=== PATIENT | male | born 1960 | race Caucasian/White ===

== ENCOUNTER 2024-01-21 14:49 | Emergency (ER) | payer OTHER, SELFPAY ==
--- NOTE | ~2024-01-21 | CT_ITS ---
EXAMINATION: CT brain wo con DATE: 01/21/2024 17:21 INDICATION: Headache. Hypertension. TECHNIQUE: Computed tomography (CT) of the head was performed without intravenous contrast. The mA wa s adjusted according to patient size. Iterative reconstruction technique was employed. Exam dose: 68 1.00 mGy-cm total exam DLP. COMPARISON: None FINDINGS: Bilateral carotid siphon internal carotid artery calcifications and bilateral vertebral art [place] and basilar artery calcifications. There is nonspecific diminished attenuation the cerebral white matter, likely due to chronic small ve ssel ischemic changes. No intracranial mass lesion or hemorrhage or cerebrovascular accident is evident. No midline shift or mass effect. No subdural or epidural hematoma is detected. The orbital contents are unremarkable. There is minimal mucoperiosteal thickening of the left axilla sinus and slight focal soft tissue thic kening of the right ethmoid air cells. The paranasal sinuses and mastoid air cells otherwise are norm ally developed and aerated. No fracture or bone destruction of the cranial vault. IMPRESSION: Cerebral atherosclerosis and chronic small vessel ischemic changes of the cerebral white matter No acute intracranial finding Reviewed, dictated and finalized at [facility]. Reviewed, dictated and finalized at [facility] [employer]
--- NOTE | 2024-01-21 14:54 | ECG_ITS ---
Test Date: 2024-01-21 15:01:41 Measurements Intervals [place] Rate: 91 P: 38 OK: 143 QRS: -3 QRSD: 109 T: 44 QT: 384 QTc: 474 Interpretive Statements SINUS RHYTHM No previous ECG available for comparison Electronically Signed On 01-21-2024 15:06:10 HUMAN SERVICES PROGRAM SPECIALIST by Charles Carbajal M.D.
[2024-01-21 14:57] VITALS: BP 188/115; PULSE 98; RESP 16; TEMP 36.6; O2SAT 98
[2024-01-21 17:00] VITALS: BP 202/125; PULSE 92; RESP 16; O2SAT 96
--- NOTE | 2024-01-21 18:30 | ED.RECABL ---
HPI - Recheck/Abnormal Lab/Rx General Chief Complaint: Recheck/Abnormal Lab/Rx Stated Complaint: HTN and h/a Time Seen by Provider: 01/21/24 16:40 Source: patient Mode of arrival: ambulatory Limitations: no limitations History of Present Illness HPI narrative: Patient is a 63-year-old male who presents the ED with report of hypertension and headache. Patient reports over the last 1 week he has had a persistent headache. Initially started throughout the right portion of his head, now spread diffusely throughout his head. Pain seems to radiate and involve his eyes, neck. He states he checked his blood pressure today and noted to be elevated into the 180s systolic. Does not remember the last time he checked his pressure. He does have history of hypertension and is on valsartan and amlodipine however he notes he has been out of his amlodipine for the last 1 month. Has not taken anything for the headache. Does have previous history of migraines. Reports photophobia, mild lightheadedness. Denies syncope, vision changes, focal weakness or numbness, fevers. Denies chest pain, SOB. Related Data Allergies Allergy/AdvReac Type Severity Reaction Status Date / Time atenolol AdvReac Swelling Verified 01/21/24 14:52 Review of Systems Review of Systems: All systems reviewed & are unremarkable except as noted in HPI. All systems reviewed & are unremarkable except as noted in HPI and below Exam Narrative: GENERAL: Well appearing, well-nourished, non-toxic, in no acute distress. HEAD: Normocephalic, atraumatic. EYES: PERRL/EOMI, conjunctiva clear. RESPIRATORY: Airway patent, respirations nonlabored. Clear to auscultation bilaterally, no rales, rhonchi, wheezing. CARDIOVASCULAR: Regular rate and rhythm without murmurs, rubs, or gallops. MUSCULOSKELETAL: Moves all extremities. No gross deformities. SKIN: Warm, dry, normal color. NEURO: A&O X3. Speech clear. Cranial nerves II-XII grossly intact. Steady gait. No ataxic movements. No focal deficits. Moves all extremities equally. No meningeal signs. PSYCHIATRIC: Appropriate mood and affect. Normal interaction. Course Vital Signs Vital signs: Vital Signs Temperature 97.9 F 01/21/24 14:57 Pulse Rate 98 01/21/24 14:57 Respiratory Rate 16 01/21/24 14:57 Blood Pressure 188/115 H 01/21/24 14:57 Pulse Oximetry 98 01/21/24 14:57 Oxygen Delivery Room Air 01/21/24 14:57 Temperature 97.9 F 01/21/24 14:57 Pulse Rate 76 01/21/24 20:32 Respiratory Rate 14 01/21/24 20:32 Blood Pressure 188/102 H 01/21/24 20:32 Pulse Oximetry 96 01/21/24 20:32 Oxygen Delivery Room Air 01/21/24 14:57 MDM - Recheck/Abnormal Lab/Rx MDM Narrative Medical decision making narrative: Patient presented to ED with report of 1 week history of headache and hypertension. He is moderately hypertensive here into the 180s systolic. Notes he recently ran out of his home amlodipine. May be partially pain related. Denies any other symptoms to suggest cardiovascular involvement or end-organ damage. Will treat headache and evaluate how this affects blood pressure. Patient's headache was not sudden in onset or maximal in severity. There are no focal neurological deficits on exam. Subarachnoid hemorrhage is felt to be unlikely at this time. CT brain was obtained and negative for acute findings. There is no history of fever and neck is supple on evaluation without meningeal signs. Meningitis is felt to be unlikely. No traumatic history or signs of trauma on evaluation. No vision changes or ocular signs of acute glaucoma. Patient given migraine cocktail in the ED. On reevaluation, patient is feeling tremendously better. Headache nearly resolved. BP did improve into the 170s w/o intervention. Did give 5mg of amlodipine here. Will Rx this for patient. Patient's headache is felt to be benign cephalgia and reasonable for further outpatient management. Advised patient to follow with PCP for further evaluation. Given strict reasons to return should sx's worsen or continue. He feels comfortable going home at this time w/o further w/u. Advised to rest, stay hydrated, continue Tylenol/ibuprofen as needed for pain. Again given strict return precautions. Patient voiced understanding. D/C in stable condition. Medical Records Attestation: I reviewed the patient's medical records. Imaging Data Attestation: I personally reviewed and interpreted this imaging study as follows: Radiologist's impression: ITS Impressions Head CT 01/21/24 17:24 IMPRESSION: Cerebral atherosclerosis and chronic small vessel ischemic changes of the cerebral white matter No acute intracranial finding ECG Data EKG #1: Attestation: I personally reviewed and interpreted this ECG as follows: ECG completion date: 01/21/24 ECG completion time: 15:01 EKG Interpretation: normal rate (91), sinus rhythm and no ST changes Discharge Plan Discharge Clinical Impression: Encounter for medication refill Headache Qualifiers: Headache type: unspecified Headache chronicity pattern: acute headache Intractability: not intractable Qualified Code(s): R51.9 - Headache, unspecified Hypertension Qualifiers: Hypertension type: unspecified Qualified Code(s): I10 - Essential (primary) hypertension Patient Disposition: Home, Self-Care Condition: Stable Instructions: Antibiotic Form, Migraine Headache (ED), Acute Headache (ED), Chronic Hypertension (ED), Hypertension (ED) Additional Instructions: Continue Tylenol and ibuprofen as needed for pain. Get plenty of rest. Stay well hydrated. Recommend low light/ low stimulus environment, limiting screen time. Return to the ED if you experience worsening or severe pain, severe dizziness, vision changes, unable to keep down food or drink, numbness or weakness of arm or leg, chest pain, difficulty breathing, persistent fevers, or any other symptoms of concern. Continue home medications for blood pressure. I have prescribed a refill of your amlodipine 5 mg. Continue to monitor blood pressure and keep recording of this. Follow-up closely with primary care doctor for further evaluation. Prescriptions: New amlodipine 5 mg tablet 5 mg PO DAILY Qty: 90 0RF Follow-up/Referrals: Chuy Adkins MD [Physician] - (PRIMARY CARE) PHYSICIAN,[employer] MACHINE SET UP MECHANIC [Primary Care Provider] - Stand Alone Forms: Work/School Release IP Time of Disposition: 20:21
[2024-01-21] MEDS: SODIUM CHLORIDE 0.9% IV 1,000 ML 999 ML IV CONT (19:07)
[2024-01-21] MEDS: ACETAMINOPHEN 500 MG TABLET 1000 MG PO (19:07)
[2024-01-21] MEDS: diphenhydrAMINE HCl INJ 50 MG/ML VIAL 25 MG IV PUSH (19:07)
[2024-01-21] MEDS: METOCLOPRAMIDE HCL INJ 10 MG/2 ML VIAL IV PUSH (19:08)
[2024-01-21] MEDS: KETOROLAC 30 MG/ML VIAL (*BKC) IV PUSH (19:10)
[2024-01-21 19:11] VITALS: BP 184/101; PULSE 74; RESP 14; O2SAT 95
[2024-01-21] MEDS: amLODIPine BESYLATE 5 MG TABLET PO (19:54)
[2024-01-21 20:32] VITALS: BP 188/102; PULSE 76; RESP 14; O2SAT 96
== END 2024-01-21 20:42 | disposition home or self-care (01) ==
PROVIDERS: Emergency Provider Physician Assistant
DX: R51.9 Headache, unspecified (principal); I10 Essential (primary) hypertension; Z76.0 Encounter for issue of repeat prescription; R90.82 White matter disease, unspecified
CPT/HCPCS: 70450; 93005; 96361; 96374; 96375; 99284; A9270; J1200; J1885; J2765; J7030

== ENCOUNTER 2024-04-12 15:24 | Emergency (ER) | payer OTHER, SELFPAY ==
[2024-04-12 15:34] VITALS: BP 149/81; PULSE 98; RESP 18; TEMP 36.8; O2SAT 99
--- NOTE | 2024-04-12 15:41 | ED.DIZZY ---
HPI - Dizziness General Chief Complaint: Dizziness <Gisselle De Leon PA-C - Last Filed: 04/13/24 14:22> Stated Complaint: light headed, sob <Gisselle De Leon PA-C - Last Filed: 04/13/24 14:22> Time Seen by Provider: 04/12/24 19:32 <Gisselle De Leon PA-C - Last Filed: 04/13/24 14:22> Focused HPI: This is a 64 year old male that presents to the ER for dizziness, lightheadedness. Reports exertional shortness of breath. Reports his heart rate was elevated at work. He was told to leave work and go get checked out. He went to [facility] urgent care initially. They sent him to the ER. Reports acid reflux GENERAL: Well-appearing, well-nourished, and in no acute distress. HEAD: Normocephalic, atraumatic. CHEST: Clear to auscultation. ?No respiratory distress. HEART: Regular rate and rhythm.? NEURO: ?Alert and oriented x3. Patient screened in triage and initial orders placed.? ?Additional care and disposition to be based upon?diagnostic testing and treatment. <Gisselle De Leon PA-C - Last Filed: 04/13/24 14:22> Focused HPI: This is a 64 year old male that presents to the ER for dizziness, lightheadedness. Reports exertional shortness of breath. Reports his heart rate was elevated at work. He was told to leave work and go get checked out. He went to [facility] urgent care initially. They sent him to the ER. Reports acid reflux. GENERAL: Well-appearing, well-nourished, and in no acute distress. HEAD: Normocephalic, atraumatic. CHEST: Clear to auscultation. ?No respiratory distress. HEART: Regular rate and rhythm.? NEURO: ?Alert and oriented x3. Patient screened in triage and initial orders placed.? ?Additional care and disposition to be based upon?diagnostic testing and treatment. <Cookie Zarco APRN - Last Filed: 04/12/24 22:50> History of Present Illness HPI Narrative: I agree with the assessment and documentation of Gisselle De Leon PA-C. <Cookie Zarco APRN - Last Filed: 04/12/24 22:50> Related Data Allergies/Adverse Reactions: Allergies Allergy/AdvReac Type Severity Reaction Status Date / Time atenolol AdvReac Swelling Verified 01/21/24 14:52 <Gisselle De Leon PA-C - Last Filed: 04/13/24 14:22> Review of Systems Review of Systems: All systems reviewed & are unremarkable except as noted in HPI and below <Cookie SherryAsher Zarco, DEBBIE - Last Filed: 04/12/24 22:50> Exam Narrative: GENERAL: Well appearing, well-nourished, non-toxic, in no acute distress. HEAD: Normocephalic, atraumatic. NECK: Supple. No adenopathy, no masses. RESPIRATORY: Airway patent, respirations nonlabored. Clear to auscultation bilaterally, no rales, rhonchi, wheezing. CARDIOVASCULAR: Regular rate and rhythm without murmurs, rubs, or gallops. Peripheral pulses 2+ and equal bilaterally. ABDOMINAL: Soft, nontender, mildly distended, no hepatosplenomegaly. Normoactive BS. MUSCULOSKELETAL: Moves all extremities. Strength/ROM intact without gross deformities. SKIN: Warm, dry, normal color. No rashes. NEURO: A&O X3. Speech clear. Cranial nerves II-XII grossly intact. Steady gait. No ataxic movements. PSYCHIATRIC: Appropriate mood and affect. Normal interaction. <Cookie Zarco, DEBBIE - Last Filed: 04/12/24 22:50> Course Vital Signs Vital signs: Vital Signs Temperature 98.3 F 04/12/24 15:34 Pulse Rate 98 04/12/24 15:34 Respiratory Rate 18 04/12/24 15:34 Blood Pressure 149/81 H 04/12/24 15:34 Pulse Oximetry 99 04/12/24 15:34 Oxygen Delivery Room Air 04/12/24 15:34 Temperature 99 F 04/12/24 18:51 Pulse Rate 71 04/12/24 23:03 Respiratory Rate 15 04/12/24 23:03 Blood Pressure 140/84 04/12/24 23:03 Pulse Oximetry 100 04/12/24 23:03 Oxygen Delivery Room Air 04/12/24 15:34 <Gisselle De Leon PA-C - Last Filed: 04/13/24 14:22> Vital Signs Temperature 98.3 F 04/12/24 15:34 Pulse Rate 98 04/12/24 15:34 Respiratory Rate 18 04/12/24 15:34 Blood Pressure 149/81 H 04/12/24 15:34 Pulse Oximetry 99 04/12/24 15:34 Oxygen Delivery Room Air 04/12/24 15:34 Temperature 99 F 04/12/24 18:51 Pulse Rate 71 04/12/24 23:03 Respiratory Rate 15 04/12/24 23:03 Blood Pressure 140/84 04/12/24 23:03 Pulse Oximetry 100 04/12/24 23:03 Oxygen Delivery Room Air 04/12/24 15:34 <Cookie Zarco APRN - Last Filed: 04/12/24 22:50> MDM - Dizziness MDM Narrative Medical decision making narrative: This is a 64 year old male that presents to the ER for dizziness, lightheadedness. Reports exertional shortness of breath. Reports his heart rate was elevated at work. He was told to leave work and go get checked out. He went to [facility] urgent care initially. They sent him to the ER. Reports acid reflux. Labs Ordered: CBC, CMP, lipase, troponin, EKG, INR, magnesium Imaging Ordered: chest x-ray Medications Ordered: Aspirin PO, Potassium Chloride 40meq PO x 2 Results: Pt's chest x-ray indicates no acute cardiopulmonary pathology. Diagnosis: Hypokalemia (chronic), adverse side effect of medication Risks: HEART score: low risk HEART Pathway for Early Discharge [email or web address]24 All calculations should be rechecked by clinician prior to use RESULT SUMMARY: 3 points HEART Pathway Score Low risk 0.9-1.7% 30-day MACE Repeat troponin at 3 hours and if negative, discharge home with outpatient follow-up. INPUTS: History ?> 0 = Slightly suspicious EKG ?> 1 = Non-specific repolarization disturbance Age ?> 1 = 45-64 Risk factors ?> 1 = 1-2 risk factors Initial troponin ?> 0 = <=Normal limit Consults: Patient Education/Shared MDM: Results shared with patient. He reports he has chronically low potassium levels and has recently been advised by his PCP to increase his oral Potassium dosage, but pt decreased the dosage back to normal after a couple of days. Pt also reports he started taking Flomax three days ago, which he thinks is what's causing his symptoms. He was advised to stop taking his Flomax until he gets in contact with his PCP. Patient strongly advised to maintain hydration status upon discharge and follow-up with his PCP as soon as possible. He will be discharged home with a new prescription for a stronger dose of Potassium. Strict return precautions provided. Patient verbalized understanding is in agreement with plan. Vital signs stable at time of discharge. All questions answered. <Cookie Zarco APRN - Last Filed: 04/12/24 22:50> Differential Diagnosis Differential diagnosis: Likely adverse reaction to drug, benign paroxysmal positional vertigo and orthostatic hypotension <Cookie Zarco APRN - Last Filed: 04/12/24 22:50> Lab Data Attestation: I reviewed the patient's lab results. <Cookie Zarco APRN - Last Filed: 04/12/24 22:50> Result diagrams: 04/12/24 17:10 04/12/24 18:01 <Gisselle De Leon PA-C - Last Filed: 04/13/24 14:22> Labs: Lab Results 04/12/24 04/12/24 04/12/24 Range/Units 17:10 18:01 21:56 WBC 8.4 (4.5-10.0) K/mm3 RBC 3.80 L (4.6-6.20) M/mm3 Hgb 11.9 L (14.0-18.0) g/dL Hct 34.1 L (42.0-52.0) % MCV 89.7 (80-100) fl MCH 31.3 (26-34) pg MCHC 34.9 (32-36) g/dl RDW 15.0 H (11.5-14.5) % Plt Count 388 H (150-375) k/mm3 MPV 11.0 H (7.4-10.4) fl Immature Gran % (Auto) 0.2 (0-0.5) % Neut % (Auto) 51.6 (45.5-73.1) % Lymph % (Auto) 29.5 (18.3-44.2) % [place] % (Auto) 15.1 H (2.6-8.5) % Eos % (Auto) 2.6 (0-4.4) % Baso % (Auto) 1.0 (0.2-1.2) % Lymph # (Auto) 2.48 (0.9-3.2) K/mm3 [place] # (Auto) 1.3 H (0.1-0.6) K/mm3 Eos # (Auto) 0.2 (0-0.3) K/mm3 Baso # (Auto) 0.1 (0.0-0.1) K/mm3 Abs Immat Gran (auto) 0.02 (0.00-0.031) K/mm3 Absolute Neuts (auto) 4.3 (1.3-6.7) K/mm3 Absolute Nucleated RBC 0.000 (0.0-0.012) K/mm3 Nucleated RBC % 0.0 (0.0-0.2) % PT 13.2 (11.1-14.7) Seconds INR 1.0 APTT 26.8 (22.3-36.8) Seconds Sodium 143 (137-145) mmol/L Potassium 2.8 L* (3.4-5.0) mmol/L Chloride 102 (98-107) mmol/L Carbon Dioxide 30 (22-30) mmol/L Anion Gap 11 (4-12) mmol/L BUN 15 (9-20) mg/dL Creatinine 1.16 (0.7-1.3) mg/dL Estim Creat Clear Calc 62 ml/min Estimated GFR > 60 (59 - ) Glucose 106 (65-110) mg/dL Calcium 9.5 (8.4-10.2) mg/dL Magnesium 1.8 (1.6-2.3) mg/dL Total Bilirubin 0.4 (0.2-1.3) mg/dL AST 50 (17-59) U/L ALT 70 H (6-50) U/L Alkaline Phosphatase 63 (38-126) U/L Troponin I < 0.012 < 0.012 (0.000-0.034) ng/mL Total Protein 8.0 (6.3-8.2) g/dL Albumin 4.2 (3.5-5.1) g/dL Lipase 183 (23-300) U/L 02/28/25 Range/Units 21:56 WBC (4.5-10.0) K/mm3 RBC (4.6-6.20) M/mm3 Hgb (14.0-18.0) g/dL Hct (42.0-52.0) % MCV (80-100) fl MCH (26-34) pg MCHC (32-36) g/dl RDW (11.5-14.5) % Plt Count (150-375) k/mm3 MPV (7.4-10.4) fl Immature Gran % (Auto) (0-0.5) % Neut % (Auto) (45.5-73.1) % Lymph % (Auto) (18.3-44.2) % [place] % (Auto) (2.6-8.5) % Eos % (Auto) (0-4.4) % Baso % (Auto) (0.2-1.2) % Lymph # (Auto) (0.9-3.2) K/mm3 [place] # (Auto) (0.1-0.6) K/mm3 Eos # (Auto) (0-0.3) K/mm3 Baso # (Auto) (0.0-0.1) K/mm3 Abs Immat Gran (auto) (0.00-0.031) K/mm3 Absolute Neuts (auto) (1.3-6.7) K/mm3 Absolute Nucleated RBC (0.0-0.012) K/mm3 Nucleated RBC % (0.0-0.2) % PT (11.1-14.7) Seconds INR APTT (22.3-36.8) Seconds Sodium (137-145) mmol/L Potassium (3.4-5.0) mmol/L Chloride (98-107) mmol/L Carbon Dioxide (22-30) mmol/L Anion Gap (4-12) mmol/L BUN (9-20) mg/dL Creatinine (0.7-1.3) mg/dL Estim Creat Clear Calc ml/min Estimated GFR (59 - ) Glucose (65-110) mg/dL Calcium (8.4-10.2) mg/dL Magnesium (1.6-2.3) mg/dL Total Bilirubin (0.2-1.3) mg/dL AST (17-59) U/L ALT (6-50) U/L Alkaline Phosphatase (38-126) U/L Troponin I < 0.012 (0.000-0.034) ng/mL Total Protein (6.3-8.2) g/dL Albumin (3.5-5.1) g/dL Lipase (23-300) U/L <Gisselle De Leon PA-C - Last Filed: 04/13/24 14:22> Lab Results 04/12/24 04/12/24 04/12/24 Range/Units 17:10 18:01 21:56 WBC 8.4 (4.5-10.0) K/mm3 RBC 3.80 L (4.6-6.20) M/mm3 Hgb 11.9 L (14.0-18.0) g/dL Hct 34.1 L (42.0-52.0) % MCV 89.7 (80-100) fl MCH 31.3 (26-34) pg MCHC 34.9 (32-36) g/dl RDW 15.0 H (11.5-14.5) % Plt Count 388 H (150-375) k/mm3 MPV 11.0 H (7.4-10.4) fl Immature Gran % (Auto) 0.2 (0-0.5) % Neut % (Auto) 51.6 (45.5-73.1) % Lymph % (Auto) 29.5 (18.3-44.2) % [place] % (Auto) 15.1 H (2.6-8.5) % Eos % (Auto) 2.6 (0-4.4) % Baso % (Auto) 1.0 (0.2-1.2) % Lymph # (Auto) 2.48 (0.9-3.2) K/mm3 [place] # (Auto) 1.3 H (0.1-0.6) K/mm3 Eos # (Auto) 0.2 (0-0.3) K/mm3 Baso # (Auto) 0.1 (0.0-0.1) K/mm3 Abs Immat Gran (auto) 0.02 (0.00-0.031) K/mm3 Absolute Neuts (auto) 4.3 (1.3-6.7) K/mm3 Absolute Nucleated RBC 0.000 (0.0-0.012) K/mm3 Nucleated RBC % 0.0 (0.0-0.2) % PT 13.2 (11.1-14.7) Seconds INR 1.0 APTT 26.8 (22.3-36.8) Seconds Sodium 143 (137-145) mmol/L Potassium 2.8 L* (3.4-5.0) mmol/L Chloride 102 (98-107) mmol/L Carbon Dioxide 30 (22-30) mmol/L Anion Gap 11 (4-12) mmol/L BUN 15 (9-20) mg/dL Creatinine 1.16 (0.7-1.3) mg/dL Estim Creat Clear Calc 62 ml/min Estimated GFR > 60 (59 - ) Glucose 106 (65-110) mg/dL Calcium 9.5 (8.4-10.2) mg/dL Magnesium 1.8 (1.6-2.3) mg/dL Total Bilirubin 0.4 (0.2-1.3) mg/dL AST 50 (17-59) U/L ALT 70 H (6-50) U/L Alkaline Phosphatase 63 (38-126) U/L Troponin I < 0.012 < 0.012 (0.000-0.034) ng/mL Total Protein 8.0 (6.3-8.2) g/dL Albumin 4.2 (3.5-5.1) g/dL Lipase 183 (23-300) U/L 04/12/24 Range/Units 21:56 WBC (4.5-10.0) K/mm3 RBC (4.6-6.20) M/mm3 Hgb (14.0-18.0) g/dL Hct (42.0-52.0) % MCV (80-100) fl MCH (26-34) pg MCHC (32-36) g/dl RDW (11.5-14.5) % Plt Count (150-375) k/mm3 MPV (7.4-10.4) fl Immature Gran % (Auto) (0-0.5) % Neut % (Auto) (45.5-73.1) % Lymph % (Auto) (18.3-44.2) % [place] % (Auto) (2.6-8.5) % Eos % (Auto) (0-4.4) % Baso % (Auto) (0.2-1.2) % Lymph # (Auto) (0.9-3.2) K/mm3 [place] # (Auto) (0.1-0.6) K/mm3 Eos # (Auto) (0-0.3) K/mm3 Baso # (Auto) (0.0-0.1) K/mm3 Abs Immat Gran (auto) (0.00-0.031) K/mm3 Absolute Neuts (auto) (1.3-6.7) K/mm3 Absolute Nucleated RBC (0.0-0.012) K/mm3 Nucleated RBC % (0.0-0.2) % PT (11.1-14.7) Seconds INR APTT (22.3-36.8) Seconds Sodium (137-145) mmol/L Potassium (3.4-5.0) mmol/L Chloride (98-107) mmol/L Carbon Dioxide (22-30) mmol/L Anion Gap (4-12) mmol/L BUN (9-20) mg/dL Creatinine (0.7-1.3) mg/dL Estim Creat Clear Calc ml/min Estimated GFR (59 - ) Glucose (65-110) mg/dL Calcium (8.4-10.2) mg/dL Magnesium (1.6-2.3) mg/dL Total Bilirubin (0.2-1.3) mg/dL AST (17-59) U/L ALT (6-50) U/L Alkaline Phosphatase (38-126) U/L Troponin I < 0.012 (0.000-0.034) ng/mL Total Protein (6.3-8.2) g/dL Albumin (3.5-5.1) g/dL Lipase (23-300) U/L <Cookie Zarco APRN - Last Filed: 04/12/24 22:50> Imaging Data Attestation: I personally reviewed and interpreted this imaging study as follows: <Cookie Zarco APRN - Last Filed: 04/12/24 22:50> Radiologist's impression: Impressions Chest X-Ray 04/12/24 16:51 IMPRESSION: no acute cardiopulmonary pathology. <Cookie PowellAsher Zarco APRN - Last Filed: 04/12/24 22:50> Critical Care Time Critical Care Time Critical Care Time: No <Gisselle De Leon PA-C - Last Filed: 04/13/24 14:22> Discharge Plan Discharge Clinical Impression: Hypokalemia, Dizziness Adverse reaction to drug Qualifiers: Encounter type: initial encounter Qualified Code(s): T50.905A - Adverse effect of unspecified drugs, medicaments and biological substances, initial encounter <Gisselle De Leon PA-C - Last Filed: 04/13/24 14:22> Patient Disposition: Home, Self-Care <Gisselle De Leon PA-C - Last Filed: 04/13/24 14:22> Condition: Stable <KIN Faust Last Filed: 04/13/24 14:22> Instructions: Antibiotic Form, Hypokalemia (ED), Dizziness (ED) <Gisselle De Leon PA-C - Last Filed: 04/13/24 14:22> Additional Instructions: Please return to the ER with an worsening symptoms. Follow-up with primary care provider as soon as possible. Your potassium dose will be increased. Please take all medications as prescribed. <Gisselle De Leon PA-C - Last Filed: 04/13/24 14:22> Patient Language: German <Gisselle De Leon PA-C - Last Filed: 04/13/24 14:22> Prescriptions: New potassium gluconate 600 mg (99 mg) tablet 600 mg PO DAILY Qty: 10 0RF No Action amlodipine 5 mg tablet 5 mg PO DAILY Qty: 90 0RF <Gisselle De Leon PA-C - Last Filed: 04/13/24 14:22> Follow-up/Referrals: [facility] [Non-Staff] - <Gisselle De Leon PA-C - Last Filed: 04/13/24 14:22> Stand Alone Forms: Work/School Release IP <Gisselle De Leon PA-C - Last Filed: 04/13/24 14:22> Time of Disposition: 22:51 <Gisselle De Leon PA-C - Last Filed: 04/13/24 14:22> 22:51 <Cookie Zarco APRN - Last Filed: 04/12/24 22:50>
[2024-04-12] MEDS: ASPIRIN 81 MG CHEWABLE TABLET 324 MG PO (16:55)
[2024-04-12 17:18] LABS: Basophils Absolute Auto 0.1 K/mm3 (0.0-0.1); Eosinophils Absolute Auto 0.2 K/mm3 (0-0.3); Eosinophils Percent Auto 2.6 % (0-4.4); Hematocrit 34.1 % (42.0-52.0); Hemoglobin 11.9 g/dL (14.0-18.0); Immature Granulocyte Absolute 0.02 K/mm3 (0.00-0.031); Immature Granulocyte Percent A 0.2 % (0-0.5); Lymphocytes Absolute Auto 2.48 K/mm3 (0.9-3.2); Lymphocytes Percent Auto 29.5 % (18.3-44.2); Mean Corpuscular HGB Conc 34.9 g/dl (32-36); Mean Corpuscular Hemoglobin 31.3 pg (26-34); Mean Corpuscular Volume 89.7 fl (80-100); Monocytes Absolute Auto 1.3 K/mm3 (0.1-0.6); Monocytes Percent Auto 15.1 % (2.6-8.5); Neutrophils Absolute Auto 4.3 K/mm3 (1.3-6.7); Neutrophils Percent Auto 51.6 % (45.5-73.1); Platelet Count Result 388 k/mm3 (150-375); White Blood Count 8.4 K/mm3 (4.5-10.0)
[2024-04-12 17:38] LABS: Prothrombin Time 13.2 Seconds (11.1-14.7)
[2024-04-12 17:39] LABS: Partial Thromboplastin Time 26.8 Seconds (22.3-36.8)
[2024-04-12 18:30] LABS: Alanine Aminotransferase 70 U/L (6-50); Albumin Level 4.2 g/dL (3.5-5.1); Alkaline Phosphatase 63 U/L (38-126); Anion Gap 11 mmol/L (4-12); Aspartate Amino Transferase 50 U/L (17-59); Bilirubin,Total 0.4 mg/dL (0.2-1.3); Blood Urea Nitrogen 15 mg/dL (9-20); Calcium 9.5 mg/dL (8.4-10.2); Carbon Dioxide 30 mmol/L (22-30); Chloride 102 mmol/L (98-107); Estimated CRCL calculation 62 ml/min; Estimated Glomerular Filt Rate > 60; Glucose 106 mg/dL (65-110); Lipase 183 U/L (23-300); Potassium 2.8 mmol/L (3.4-5.0); Sodium 143 mmol/L (137-145)
[2024-04-12 18:38] LABS: Troponin I < 0.012 ng/mL (0.000-0.034)
[2024-04-12 18:51] VITALS: BP 155/87; PULSE 87; RESP 18; TEMP 37.2; O2SAT 95
[2024-04-12] MEDS: POTASSIUM CHLORIDE 20 MEQ ER TABLET 40 MEQ PO (19:48)
[2024-04-12 21:30] VITALS: PULSE 70; RESP 16; O2SAT 96
[2024-04-12 21:32] VITALS: PULSE 62
[2024-04-12 22:19] LABS: Magnesium 1.8 mg/dL (1.6-2.3)
[2024-04-12 22:24] LABS: Troponin I < 0.012 ng/mL (0.000-0.034)
[2024-04-12 22:37] LABS: Troponin I < 0.012 ng/mL (0.000-0.034)
[2024-04-12 23:03] VITALS: BP 140/84; PULSE 71; RESP 15; O2SAT 100
== END 2024-04-12 23:04 | disposition home or self-care (01) ==
PROVIDERS: Physician Assistant; Emergency Provider Registered Nurse
DX: R42 Dizziness and giddiness (principal); E87.6 Hypokalemia; T44.6X5A Adverse effect of alpha-adrenoreceptor antagonists, initial encounter; Z79.899 Other long term (current) drug therapy; I44.7 Left bundle-branch block, unspecified; R94.31 Abnormal electrocardiogram [ECG] [EKG]
CPT/HCPCS: 36415; 71046; 80053; 83690; 83735; 84484; 85025; 85610; 85730; 93005; 99284; A9270

== ENCOUNTER 2024-09-13 15:33 | Emergency (ER) | payer OTHER, SELFPAY ==
--- NOTE | ~2024-09-13 | US_ITS ---
EXAMINATION: US venous doppler LE RT DATE: 09/13/2024 19:13 INDICATION: cellulitis, injection to thigh, swelling in leg . TECHNIQUE: Grayscale images without and with compression and Doppler images of the right lower extrem ity veins were obtained. COMPARISON: None FINDINGS: The right common femoral vein, profunda (deep) femoral vein, femoral vein, popliteal vein, peroneal v ein, posterior tibial veins, and greater saphenous vein are patent. The area of clinical concern was sonographically interrogated revealing no solid or cystic mass. IMPRESSION: Patent right lower extremity veins. No evidence of deep venous thrombosis. Reviewed, dictated and finalized at location K.
--- OUTSIDE RECORDS SUMMARY | 2024-09-13 15:35 | XMS_ITS | Clinical Summary ---
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 Role Phone Unavailable Primary Care Provider Unavailabl e Social History Tobacco Use Types Packs/Day Years Used Date Smoking Tobacco: Never Assessed Sex and Gender Information Value Date Recorded Sex Assigned at Not on file Legal Sex Male 8:11 PM CDT Gender Identity Not on file Sexual Orientation Not on file Plan of Treatment Health Maintenance Due Date Last Done Comments Colorectal Cancer Screening Colonoscopy (10 Years) 1961 Annual Physical 1964 Hepatitis C 1979 DTaP, Tdap and Td Vaccines ( 1 - Tdap) 1980 Pneumococcal Vaccine: 50+ Ye ars (1 of 1 - PCV) 2011 Zoster Vaccines (1 of 2) 2011 COVID-19 Vaccine ( - 2023-2 5 season) 2023 RSV Immunization or 60+ Years (1 - 1-dose 75+ series) 2036 Meningococcal B Vaccine Aged Out No l onger eligible based on patient's age to complete this topic Meningococcal Vaccine Aged Out No ed giulia eligible based on patient's age to complete this topic RSV Immunizations Under 20 Months Aged Out No longer eligible based on patient's age to complete this topic Insurance SupportLocal OPEN ACCESS [facility]
--- OUTSIDE RECORDS SUMMARY | 2024-09-13 15:35 | XMS_ITS | Referral Summary ---
Author Organization [facility] [place] [address] Address [address] [place] [id number] Care Team Providers Care Press Operator Printing Name Role Phone Debra Pastrana DO Primary Care Provider [phone]- [phone] Anna Lopez MD Unavailable Encounters Date Type Department Care Team Description 09/12/2024 6:45 PM CDT Office Visit [facility] Care at [address] [address] Cyndee Gaines NP Acute cough (Primary Dx); Cellulitis of right thigh; Elevated blood pressure reading 09/09/2024 Telephone [facility] Family Medicine at [facility] [address] [place] [address] 260 [place] [address] Debra Pastrana DO Recommendation Request 09/03/2024 Telephone [facility] Sleep Lab [address] [place], [place] [phone] Pop Wilburn MD Split sleep study results / cpap order 09/01/2024 8:00 PM CDT - 09/01/2024 11:59 PM CDT Hospital Encounter [facility] Sleep Lab [address] [place], [place] [id number] MELLISSA (obstructive sleep apnea) Discharge Disposition: Discharge to home or self care 08/26/2024 Orders Only [facility] Pulmonology [address] [facility] [address] [place] [address] Pop Wilburn MD MELLISSA (obstructive sleep apnea) (Primary Dx) 08/26/2024 Telephone [facility] Sleep Lab [address] [place] [address] Emelina Lopez, [facility] Request for Split night sleep study 08/20/2024 Orders Only [facility] Gastroenterology at [address] [place] [address] Mariola Rajan NP Elevated LFTs (Primary Dx); Gallbladder polyp 08/19/2024 1:00 PM CDT Office Visit [facility] Pulmonology [address] [facility] [address] [place] [address] Pop Wilburn MD MELLISSA (obstructive sleep apnea) (Primary Dx); Daytime sleepiness; BMI 30.0-30.9,adult; Nonsmoker 08/12/2024 Telephone [facility] Family Medicine at [place] [address] [facility] [address] [place] [address] Debra Pastrana DO Medical Question/Miscellaneo 08/06/2024 8:00 AM CDT Office Visit [facility] Family Medicine at [place] [address] [facility] [address] [place] [phone] Debra Pastrana DO Cervical radicular pain (Primary Dx); DDD (degenerative disc disease), cervical 08/06/2024 9:08 AM CDT - 08/06/2024 11:59 PM CDT Hospital Encounter [facility] US [address] [place] [address] Elevated LFTs Discharge Disposition: Discharge to home or self care 08/02/2024 Results Follow-Up [facility] Gastroenterology at [address] [place] [phone] Mariola Rajan NP Ceruloplasmin, Hepatic function panel, JUAN DANIEL ab ql w/rflx to JUAN DANIEL qn, Additional followed-up results: 7 07/15/2024 4:45 PM CDT Office Visit [facility] Care at [address] [address] Escobar Patterson NP Acute strain of neck muscle, initial encounter (Primary Dx); Elevated blood pressure reading in office with diagnosis of hypertension 07/15/2024 10:00 AM CDT Lab [facility] Office Bldg [address] [place] [address] Elevated LFTs 07/15/2024 9:00 AM CDT Office Visit [facility] Gastroenterology at [place] [id number] [facility] [address] [place] [address] Mariola Rajan NP Elevated LFTs (Primary Dx); Abdominal bloating 06/24/2024 Results Follow-Up [facility] Family Medicine at [facility] [address] [place] [phone] Debra Pastrana DO Total testosterone, Hemoglobin A1c, Comprehensive metabolic panel, eGFR 06/24/2024 3:45 PM CDT Lab [facility] Office [facility] 3 OP Lab [address] [place] [address] Fatigue, unspecified type; Annual physical exam; Encounter for screening examination for impaired glucose regulation and diabetes mellitus; Elevated LFTs; Encounter for screening for other digestive system disorders 06/24/2024 3:00 PM CDT Office Visit [facility] Family Medicine at [facility] [address] [place] [phone] Debra Pastrana DO Annual physical exam (Primary Dx); Primary hypertension; Mild episode of recurrent major depressive disorder; Generalized anxiety disorder; Elevated LFTs; Fatigue, unspecified type; Daytime sleepiness; Encounter for screening for other digestive system disorders; Encounter for screening examination for impaired glucose regulation and diabetes mellitus from Last 3 Months Allergies Active Allergy Reactions Criticality Noted Date Comments Atenolol Swelling,Angioedema High 08/02/2018 Buspirone Other (See comments) Low 02/29/2024 reports that it gives him a buzzy feeling like he's been drinking Latex Anaphylaxis High 03/23/2022 Medications ascorbic acid (VITAMIN C) 1,000 mg tablet 1 tablet (1,000 mg total) 3 Active aspirin 81 mg enteric coated tabletIndication s:Primary hypertension Take 1 tablet (81 mg total) by mouth daily 90 tablet 3 5 02/28/19 26 Active amLODIPine (NORVASC) 5 mg tabletIndication s:Primary hypertension Take 1 tablet (5 mg total) by mouth nightly 90 tablet 1 5 04/23/19 26 Active tamsulosin (FLOMAX) 0.4 mg extended release capsule 1 capsule (0.4 mg total) daily Active MAGNESIUM ORAL Take by mouth A ctive escitalopram (LEXAPRO) 5 mg tabletIndication s:Mild episode of recurrent major depressive disorder,General ized anxiety disorder Take 1 tablet (5 mg total) by mouth nightly 90 tablet 3 5 06/25/19 26 Active valsartan (DIOVAN) 320 mg tabletIndication s:Primary hypertension Take 1 tablet (320 mg total) by mouth daily 90 tablet 3 5 06/25/19 26 Active potassium chloride ER (KLOR-CON) 10 mEq CR tabletIndication s:Hypokalemia Take 1 tablet/capsule (10 mEq total) by mouth 2 (two) times a day 60 tablet 5 5 06/25/19 26 Active tadalafiL (CIALIS) 5 mg tablet 5 Active testosterone cypionate (DEPO-TESTOTERON E) 200 mg/mL injection Inject 0.5 mL (100 mg total) into the muscle as instructed once a week 5 Active ibuprofen (ADVIL,MOTRIN) 800 mg tabletIndication s:Cervical radicular pain,DDD (degenerative disc disease), cervical Take 1 tablet (800 mg total) by mouth every 8 (eight) hours as needed for pain (pain) 90 tablet 5 5 08/07/19 26 Active methylPREDNISolo ne (MEDROL DOSEPACK) 4 mg DosepackIndicati ons:Chronic bilateral low back pain without sciatica Take as directed on package. 21 tablet 5 Active Additional Information Patient not taking.Reported on 09/12/2024 cyclobenzaprine (FLEXERIL) 10 mg tabletIndication s:Chronic bilateral low back pain without sciatica Take 1 tablet (10 mg total) by mouth nightly as needed for muscle spasms 30 tablet 2 5 08/14/19 26 Active Additional Information Patient not taking.Reported on 09/12/2024 benzonatate (TESSALON) 200 mg capsuleIndicatio ns:Acute cough Take 1 capsule (200 mg total) by mouth 3 (three) times a day as needed for cough 30 capsule 5 Active doxycycline (VIBRAMYCIN) 100 mg capsuleIndicatio ns:Cellulitis of right thigh Take 1 tablet/capsule (100 mg total) by mouth 2 (two) times a day for 7 days 14 tablet/capsu le 5 09/20/19 25 Active Active Problems Problem Noted Date Diagnosed Date MELLISSA (obstructive sleep apnea) 08/19/2024 BMI 30.0-30.9,adult 08/19/2024 Nonsmoker 08/19/2024 Cervical radicular pain 08/06/2024 DDD (degenerative disc disease), cervical 2024 Daytime sleepiness 06/24/2024 Internal nasal lesion 04/27/2024 Assessment & Plan (04/27/2024 12:07 PM CDT): He had a large vascular lesion on the left nasal septum. It bled easily and heavily when manipulated. It was controlled using silver nitrate cautery. I recommended that he apply antibiotic ointment twice a day to left side of the nose for the next couple of weeks. Considering the size of the lesion I recommended a follow up in about 6 weeks. He understands. Elevated LFTs 03/27/2024 Assessment & Plan (07/15/2024 9:58 AM CDT): Was noted to have mildly elevated liver enzymes, on 06/24/2024 AST 55/ALT 69 -We will order blood work as well as ultrasound for further evaluation. -Educated on importance of low-fat diet as well as avoiding alcohol -Recommended weight loss Degeneration of intervertebr al disc of lumbar region with discogenic back pain 03/25/2024 Hypokalemia 03/25/2024 Hyperpigmented skin lesion 03/25/2024 Tinnitus of both ears 03/25/2024 Assessment & Plan (04/27/2024 12:11 PM CDT): He has tinnitus which is likely due to his high-frequency bilateral sensorineural hearing loss. I indicated that his hearing loss was borderline for hearing aids. He can probably eventually get those if he is having significant problems. I talked with the patient about tinnitus. Typically it is due to hearing loss but there are other potential reasons for it. It can occur due to cervical strain or TMJ disorder. Also potentially due to tumors which are usually benign. Unfortunately there is no widely accepted or successful treatment for it. There are a lot of cjsb-yqq-wletiab remedies which generally do not help and I really do not recommend any of them. He understands. He will follow up with me as needed for this. H/O epistaxis 03/25/2024 Assessment & Plan (04/27/2024 12:07 PM CDT): His bleeding is likely coming from the lesion that was cauterized today. Endoscopically I did not find anything else. This was controlled pretty easily. I am going to have him follow-up in 6 weeks. Influenza vaccine refused 02/29/2024 BMI 29.0-29.9,adult 02/29/2024 Generalized anxiety disorder 02/29/2024 Assessment & Plan (02/29/2024 10:43 AM PREVENTIVE MEDICINE SPECIALIST): Re-start medication, escitalopram. Do not re-start Buspirone due to side- effects. Labs ordered, consider therapy. Mild episode of recurrent major depressive disor izabel 02/29/2024 Assessment & Plan (02/29/2024 10:42 AM PREVENTIVE MEDICINE SPECIALIST): Re-start medications, will follow. Labs ordered. Consider therapy. Drug-induced erectile dysfunction 02/29/2024 Assessment & Plan (02/29/2024 10:43 AM PREVENTIVE MEDICINE SPECIALIST): Most likely secondary to anti-hypertensive medications. Referred to urology for further eval/mgmt. Primary hypertension 02/29/2024 Assessment & Plan (02/29/2024 10:44 AM PREVENTIVE MEDICINE SPECIALIST): Uncontrolled, low sodium diet recommended. Continue current medications. Monitor BPS at home, record them, quick follow up recommended. Chronic bilateral low back pain without sciatica 02/29/2024 Assessment & Plan (02/29/2024 10:45 AM PREVENTIVE MEDICINE SPECIALIST): XR of lumbar spine, will follow. Consider PT. Abdominal bloating 02/29/2024 Assessment & Plan (07/15/2024 10:01 AM CDT): Reports that he has occasional complaints of abdominal bloating as well as increased flatulence since his umbilical hernia repair last year. Reports that he is having soft formed stools with no reports of blood or mucus. States that he attempted to take a Dulcolax feeling that his complaints for due to constipation this gave him extreme diarrhea. Previous colonoscopy in May 2020 was normal. -Recommended starting an txhs-sti-yeneiex probiotic like LiquidTalk or Notifo. -Also discussed ppaq-fps-tzgtxpk ib letitia -If complaints continue discussed possible SIBO testing Assessment & Plan (02/29/2024 10:45 AM PREVENTIVE MEDICINE SPECIALIST): Recommended screening colonoscopy. May also need GI f/u in office. Increased urinary frequency 02/29/2024 Assessment & Plan (02/29/2024 10:45 AM PREVENTIVE MEDICINE SPECIALIST): Labs ordered, referred to urology for further eval/mgmt. Gastroesophageal reflux disease 08/15/2022 Overview (09/12/2024): Removal Reason: resolved Hypokalemia 06/03/2022 Asplenia 03/23/2022 Primary erectile dysfunction 09/10/2021 Generalized anxiety disorder 12/23/2020 Numbness 05/20/2019 Essential hypertension 05/20/2019 Immunizations Immunization Administration Dates Next Due Influenza, Quadrivalent, Amelia l Culture-based MDCK, Antibiotic Free, Intramuscular 01/30/2020 Influenza, Quadrivalent, Spl it, Preservative Free, Intramuscular 12/24/2020,12/11/2018 Influenza, Unspecified 02/29/2024(Deferr ed: Patient Refused),11/13/2022(Deferred: Patient Refused),11/13/2021 Pfizer Sars-Cov-2 Bivalent V accination (12+ YRS) 11/14/2020,10/17/2020 Pneumococcal Polysaccharide PPV23 12/12/2018, Sars-CoV-2, Unspecified 11/14/2021,10/17/2021 Tdap 02/26/2021,02/13/2010 Social History Tobacco Use Types Packs/Day Years Used Date Smoking Tobacco: Never Smokeless Tobacco: Never Tobacco Cessation:Counseling Given: Not Answered AUDIT-C Answer Date Recorded Q1: How often do you have a drink containing alc ohol? Monthly or less 08/06/2024 Q2: How many drinks containi ng alcohol do you have on a typical day when you are drinking? 1 or 2 08/06/2024 Q3: How often do you have si x or more drinks on one occasion? Never 08/06/2024 PHQ-2 Answer Date Recorded PHQ-2 Total Score 2 02/29/2024 Sex and Gender Information Value Date Recorded Sex Assigned at Not on file Legal Sex Male 8:24 AM PREVENTIVE MEDICINE SPECIALIST Gender Identity Not on file Sexual Orientation Not on file Last Filed Vital Signs Vital Sign Reading Time Taken Comments Blood Pressure 175/96 09/12/2024 5:20 PM CDT lef t arm Pulse 105 09/12/2024 5:16 PM CDT Temperature 37.4 C (99.3 F) 09/12/2024 5:16 PM CDT Respiratory Rate 22 09/12/2024 5:16 PM CDT Oxygen Saturation 98% 09/12/2024 5:16 PM CDT Inhaled Oxygen Concentration - - Weight 103.9 kg (229 lb) 09/12/2024 5:16 PM CDT Height 180.3 cm (5' 11) 08/19/2024 1:03 PM CDT Body Mass Index 31.94 08/19/2024 1:03 PM CDT Plan of Treatment Not on file Procedures Procedure Name Priority Date/Time Associated Diagnosis Comments POC INFLUENZA A/B, COVID-19 ANTIGEN Routine 09/12/2024 5:43 PM CDT Acute cough PSG (SIMPLE) Routine 09/01/2024 9:06 PM CDT MELLISSA (obstructive sleep apnea) US RUQ Schedule Routine, Read Routine (OP Routine) 08/06/2024 9:57 AM CDT Elevated LFTs MITOCHONDRIAL ANTIBODIES, QUANTITATIVE Routine 07/15/2024 10:15 AM CDT Elevated LFTs [id number] Routine 07/15/2024 1 0:15 AM CDT Elevated LFTs LIVER/KIDNEY MICROSOME TYPE 1 AB Routine 07/15/2024 10:15 AM CDT Elevated LFTs MITOCHONDRIAL ANTIBODIES, QUALITATIVE Routine 07/15/2024 10:15 AM CDT Elevated LFTs SMOOTH MUSCLE ANTIBODY, QUALITATIVE Routine 07/15/2024 10:15 AM CDT Elevated LFTs JUAN DANIEL QUALITATIVE WITH REFLEX TO JUAN DANIEL QUANTITATIVE Routine 07/15/2024 10:15 AM CDT Elevated LFTs HEPATIC FUNCTION PANEL Routine 07/15/2024 10:15 AM CDT Elevated LFTs CERULOPLASMIN Routine 07/15/2024 10:15 AM CDT Elevated LFTs HEPATITIS PANEL, ACUTE Routine 07/15/2024 10:15 AM CDT Elevated LFTs EGFR Routine 06/24/2024 3:48 PM CDT Annual physical exam Elevated LFTs Encounter for screening for other digestive system disorders COMPREHENSIVE METABOLIC PANEL Routine 06/24/2024 3:48 PM CDT Annual physical exam Elevated LFTs Encounter for screening for other digestive system disorders HEMOGLOBIN A1C Routine 06/24/2024 3:48 PM CDT Annual physical exam Encounter for screening examination for impaired glucose regulation and diabetes mellitus TOTAL TESTOSTERONE Routine 06/24/2024 3: 48 PM CDT Fatigue, unspecified type PSA SCREEN Routine 02/29/2024 11:05 AM PREVENTIVE MEDICINE SPECIALIST Screening PSA (prostate specific antigen) COLONOSCOPY Routine 06/12/2020 3:37 PM CDT from Last 3 Months or Most Recently Relevant to Health Maintenance Results * POC Influenza A/B, COVID-19 antigen (09/12/2024 5:43 PM CDT) Influenza A Ag, POC Negative Negative [facility] Influenza B Ag, POC Negative Negative [facility] COVID-19 Ag POC Presumptive Negative Presumptive Negative, Invalid [facility] [place] CC EDW Nasal 09/12/2024 5:43 PM CDT Cyndee Gaines NP POINT OF CARE TEST ORDERAB LES Final Result Performing Organization Address [facility]/ZIP Co de Phone Number [facility] EDW [address] [place] [address] * PSG (09/01/2024 9:06 PM CDT) Pop Wilburn MD SLEEP CENTER ORDERABLES Fin al Result Performing Organization Address City/[facility]/ZIP Co de Phone Number [facility] [address] [place] [address] * RUQ Ultrasound (08/06/2024 9:57 AM CDT) Anatomical Region Laterality Modality Abdomen N/A Ultrasound 08/16/2024 3:30 PM CDT Narrative 08/16/2024 3:33 PM CDT EXAM DESCRIPTION: US RUQ REASON FOR STUDY: Abnormal hepatic function test TECHNIQUE: Ultrasound of the right upper quadrant of the abdomen was performed with grayscale and color doppler. COMPARISON: None FINDINGS: PANCREAS: Visualized portions of the pancreas are within normal limits. Portions of the pancreatic body and tail are obscured due to bowel gas. LIVER: The liver appears normal in echotexture and echogenicity. No focal lesion identified. The main portal vein is patent with antegrade flow. GALLBLADDER: 0.5 cm echogenic nonmobile nonshadowing structure a drain into the wall compatible with a polyp.. No cholelithiasis. No gallbladder wall thickening or pericholecystic fluid. No positive sonographic [place] sign reported. BILIARY: There is no intrahepatic or extrahepatic biliary ductal dilatation. Common bile duct measures 0.3 cm in diameter. RIGHT KIDNEY: Normal size. Normal echogenicity. No solid mass. 1.5 cm cyst interpolar region. No hydronephrosis. Measures 12.3 cm cm in length. OTHER: No other significant findings. IMPRESSION: 1. Gallbladder polyp measuring 0.5 cm. Follow-up in 1 year. 2. Right renal cyst. THIS IS AN ELECTRONICALLY VERIFIED FINAL REPORT 08/16/2024 3:33 PM - Electronically signed by Paul SOLORIO T: Report ID: [id number] Reading Location: [id number] Procedure Note Paul Escoto MD - 08/16/2024 EXAM DESCRIPTION: US RUQ REASON FOR STUDY: Abnormal hepatic function test TECHNIQUE: Ultrasound of the right upper quadrant of the abdomen wasperformed with grayscale and color doppler. COMPARISON: None FINDINGS: PANCREAS: Visualized portions of the pancreas are withinnormal limits. Portions of the pancreatic body and tail are obscured due to bowel gas. LIVER: The liver appears normal in echotexture and echogenicity. Nofocal lesion identified. The main portal vein is patent with antegrade flow. GALLBLADDER: 0.5 cm echogenic nonmobile nonshadowing structure a draininto the wall compatible with a polyp.. No cholelithiasis. No gallbladderwall thickening or pericholecystic fluid. No positive sonographic [place] sign reported. BILIARY: There is no intrahepatic or extrahepatic biliary ductaldilatation. Common bile duct measures 0.3 cm in diameter. RIGHT KIDNEY: Normal size. Normal echogenicity. No solid mass. 1.5 cmcyst interpolar region. No hydronephrosis. Measures 12.3 cm cm in length. OTHER: No other significant findings. IMPRESSION: 1. Gallbladder polyp measuring 0.5 cm. Follow-up in 1 year. 2. Right renal cyst. THIS IS AN ELECTRONICALLY VERIFIED FINAL REPORT 08/16/2024 3:33 PM - Electronically signed by Paul SOLORIO T: Report ID: [id number] Reading Location: [id number] us Mariola Rajan NP IMG US PROCEDURES Final Resu lt * JUAN DANIEL ab ql w/rflx to JUAN DANIEL qn (07/15/2024 10:15 AM CDT) JUAN DANIEL Negative Comment: Interpretive Data Normal range for JUAN DANIEL Qualitative Antibody = Negative. 1. JUAN DANIEL is performed using indirect immunofluorescence against HEp-2 cells 2. JUAN DANIEL titers are performed on all positive qualitative results. 3. A significantly positive JUAN DANIEL result is defined as a positive nuclear fluorescence at a titer of 1:80 or greater. 4. 15% of normal people above age 65 have significantly positive JUAN DANIEL results. 5% or less of normal people age 65 or under have significantly positive JUAN DANIEL results. Current interpretive data was last revised on 2019. Testing performed by: [facility], [address] [place]., [id number] Blood 07/15/2024 10:1 5 AM CDT 07/15/2024 5:54 PM CDT us Mariola Rajan NP LAB BLOOD ORDERABLES Final R esult [facility] [address] [facility] Department [place] [address] * Liver/kidney microsome type 1 antibody (07/15/2024 10:15 AM CDT) LKM-1 <5.0 <=20.0 (Negative) Units [place] ref Lab Comment: Test Performed by: [facility] [address] [place] [id number] Supervisor Data Processing: Josue Antonio Ph.D.; CLIA# [id number] Blood 07/15/2024 10:1 5 AM CDT 07/15/2024 12:26 PM CDT us Mariola Rajan NP LAB BLOOD ORDERABLES Final R esult Performing Organization Address City/[facility]/ZIP Co de Phone Number CASSANDRA [address] [place] [address] [place] ref Lab * Smooth muscle antibody, qualitative (07/15/2024 10:15 AM CDT) Anti-smooth muscle Negative Negative Comment:Testing performed by : [facility], [address] [place] [address], [id number] Blood 07/15/2024 10:1 5 AM CDT 07/15/2024 5:54 PM CDT Mariola Rajan NP LAB BLOOD ORDERABLES Final [facility] Performing Organization Address [facility] Co de Phone Number [address] [address] * (ABNORMAL) Mitochondrial antibodies, quantitative (07/15/2024 10:15 AM CDT) Pathologist [facility] Anti-mitochondri al quant 1:40(A) Negative titer Comment: Interpretive Data Normal range for Anti-Mitochondrial antibody is negative (titers equal to or less than 1:20). Greater than 1:20 is positive - suggests primary biliary cirrhosis. Greater than 1:80 is positive - strong evidence of primary biliary cirrhosis. Current interpretive data was last revised on 07. Testing performed by: [facility], [address] [place] [address]., [id number] Blood 07/15/2024 10:1 5 AM CDT 07/15/2024 5:54 PM CDT Mariola Rajan NP LAB BLOOD ORDERABLES Final [facility] Performing Organization Address City/[facility]/ZIP Co de Phone Number ROSAR[address] [place] [address] * (ABNORMAL) Mitochondrial antibodies, qualitative (07/15/2024 10:15 AM CDT) Anti-mitochond rial Positive(A ) Negative Comment:Testing performed by : [facility], [address] [place] [address], [id number] Blood 07/15/2024 10:1 5 AM CDT 07/15/2024 5:54 PM CDT Mariola Rajan NP LAB BLOOD ORDERABLES Final R esult [address] [place] [address] * [id number] (07/15/2024 10:15 AM CDT) Pathologist [facility] alpha-1 antitrypsin 154 90 - 200 mg/dL Comment:Testing performed by : [facility], [address] [place] [address], [id number] Blood 07/15/2024 10:1 5 AM CDT 07/15/2024 7:37 PM CDT Mariola Rajan NP LAB BLOOD ORDERABLES Final R esult Performing Organization Address [facility] Co de Phone Number [address] [address] * Ceruloplasmin (07/15/2024 10:15 AM CDT) Pathologist [facility] Ceruloplasmin 23.8 15.0 - 30.0 mg/dL Comment:Testing performed by : [facility], [address] [place] [address], [id number] Blood 07/15/2024 10:1 5 AM CDT 07/15/2024 7:37 PM CDT us Mariola Rajan NP LAB BLOOD ORDERABLES Final R esult [address] [address] * Hepatitis panel, acute Blood (07/15/2024 10:15 AM CDT) Hep A IgM Nonreactive Nonreactive Comment: Interpretive Data: If Hep A IgM Ab is reported as Equivocal, a new sample should be drawn in two weeks for testing. Current interpretive data was last revised on 19. Hep B core IgM Nonreactive Nonreactive [facility] Comment: Interpretive Data If HepB Core IgM Ab is reported as Equivocal, a new sample should be drawn in two weeks for testing. Current interpretive data was last revised on 19. Hep C Ab Nonreactive Nonreactive [facility] Comment: Antibodies to HCV not detected. Does NOT exclude the possibility of recent exposure to HCV. Current interpretive data was last revised on 21 Interpretive Data Nonreactive: Antibodies to HCV not detected. Does NOT exclude the possibility of recent exposure to HCV. Equivocal: Equivocal for HCV antibodies. Supplemental molecular testing will be automatically performed to determine infection status in accordance with current CDC screening recommendations. Reactive: Positive for HCV antibodies. This may represent current or past HCV infection. Supplemental molecular testing will be automatically performed to determine current infection status in accordance with current CDC screening recommendations. Interpretive data was last revised on 2019. HepBsAg Nonreactive Nonreactive [facility] Blood 07/15/2024 10:1 5 AM CDT 07/15/2024 12:26 PM CDT Mariola Rajan NP LAB MICROBIOLOGY - GENERAL O RDERABLES Final Result [facility] [address] [facility] [place] [address] * (ABNORMAL) Hepatic function panel (07/15/2024 10:15 AM CDT) Pathologist [facility] Bilirubin, total 0.3 0.1 - 1.2 mg/dL Bilirubin, direct 0.1 0.1 - 0.3 mg/dL [facility] Protein, pl 7.6 6.5 - 8.5 g/dL [facility] Albumin 4.0 3.5 - 5.0 g/dL [facility] Alk phos 66 40 - 130 Units/L [facility] ALT 68(H) 7 - 55 Units/L [facility] AST 57(H) 10 - 50 Units/L [facility] Blood 07/15/2024 10:1 5 AM CDT 07/15/2024 12:26 PM CDT Mariola Satinder HOSPICE MASSAGE THERAPIST LAB BLOOD ORDERABLES Final R esult Performing Organization Address City/[facility]/ZIP Co de Phone Number [address] [address] * eGFR (06/24/2024 3:48 PM CDT) eGFR 64 >=60 mL/min/1. 73 m2 Comment: Interpretive Data Reference Interval Normal >/= 90 mL/min/1.73m2 Mildly decreased* 60 - 89 mL/min/1.73m2 Mildly to moderately decreased 45 - 59 mL/min/1.73m2 Moderately to severely decreased 30 - 44 mL/min/1.73m2 Severely decreased 15 - 29 mL/min/1.73m2 Kidney Failure < 15 mL/min/1.73m2 *Relative to young adult level Estimated glomerular filtration rate is determined by the 2020 CKD-EPI equation recommended by the National Kidney Foundation (A Unifying Approach to GFR Estimation: Recommendations of the NKF-ASK Task Force on Reassessing the Inclusion of Race in Diagnosing Kidney Disease, JASN 2020). The CKD-EPI equation should not be used for patients with unstable renal function and has not been validated in children and those over 70. Current interpretive data was last reviewed 2020. Blood 06/24/2024 3:48 PM CDT 06/24/2024 4:26 PM CDT us Debra Pastrana DO LAB BLOOD ORDERABLES Final Result Performing Organization Address [facility]/ZIP Co de Phone Number [address] [place] [address] * (ABNORMAL) Total testosterone (06/24/2024 3:48 PM CDT) Testosterone 192.00(L) 193.00 - 740.00 ng/dL Blood 06/24/2024 3:48 PM CDT 06/24/2024 4:26 PM CDT Debra Templeton Pastrana LAB BLOOD ORDERABLES Final Result Performing Organization Address [facility] de Phone Number C[place]AN[place]A [address] [address] * (ABNORMAL) Hemoglobin A1c (06/24/2024 3:48 PM CDT) [facility] Hgb A1C 6.0(H) 4.0 - 5.6 % Estimated Average Glucose 126 mg/dL [facility] Comment: The ADA recommends reporting an estimated Average Glucose (eAG) with all Hemoglobin A1c results using the equation derived from a study of 507 normal and diabetic adults. Minority populations were underrepresented and children were not included. (Diabetes Care 31:4460-3140, 2008). The eAG is not equivalent to a fasting glucose. Blood 06/24/2024 3:48 PM CDT 06/24/2024 4:26 PM CDT Debra Pastrana LAB BLOOD ORDERABLES Final Result Performing Organization Address [facility] de Phone Number CASSANDRA [address] [address] * (ABNORMAL) Comprehensive metabolic panel (06/24/2024 3:48 PM CDT) [facility] Sodium 143 135 - 145 mmol/L Potassium, pl 3.2(L) 3.3 - 4.9 mmol/L [facility] Chloride 104 97 - 110 mmol/L [facility] CO2 27 22 - 32 mmol/L [facility] Anion gap 12 2 - 15 mmol/L [facility] BUN 15 6 - 25 mg/dL [facility] Creatinine 1.26 0.80 - 1.30 mg/dL [facility] Glucose 98 70 - 199 mg/dL [facility] Comment: Interpretive Data Fasting glucose >/= 126 mg/dl is diagnostic for diabetes. Fasting is defined as no caloric intake for at least 8 hours. Fasting glucose between 100 mg/dl to 125 mg/dl is diagnostic of prediabetes. In a patient with classic symptoms of hyperglycemia or hyperglycemic crisis, a random glucose >/= 200 mg/dl is diagnostic for diabetes. In the absence of unequivocal hyperglycemia, results should be confirmed by repeat testing. The classification and Diagnosis of Diabetes Diabetes Care 2021; 46: S19-S40. Current interpretive data was last revised 2022. Calcium 9.8 8.5 - 10.3 mg/dL [facility] Bilirubin, total 0.3 0.1 - 1.2 mg/dL [facility] Protein, pl 8.1 6.5 - 8.5 g/dL [facility] Albumin 4.2 3.5 - 5.0 g/dL [facility] Alk phos 67 40 - 130 Units/L [facility] ALT 69(H) 7 - 55 Units/L [facility] AST 55(H) 10 - 50 Units/L [facility] Blood 06/24/2024 3:48 PM CDT 06/24/2024 4:26 PM CDT Debra Pastrana DO LAB BLOOD ORDERABLES Final Result [facility] [address] [facility] Department [place] [address] * PSA screen (02/29/2024 11:05 AM PREVENTIVE MEDICINE SPECIALIST) PSA-Total 0.70 <=5.40 ng/mL Comment: Interpretive Data AGE SEX REFERENCE INTERVAL 0 minutes-150 years Female None 0 minutes-49 years Male None 50-59 years Male 0-3.90 60-69 years Male 0-5.40 70-79 years Male 0-6.20 80-150 years Male 0-6.20 The [employer] PSA Total assay procedure was used. Results from different manufacturers or methods may not be comparable. Serial testing should be performed using the same method. Current interpretive data last revised 21. Blood 02/29/2024 11:0 5 AM PREVENTIVE MEDICINE SPECIALIST 02/29/2024 12:14 PM PREVENTIVE MEDICINE SPECIALIST us Debra Pastrana DO LAB BLOOD ORDERABLES Final Result [facility] [address] [facility] Department [place] [address] * Colonoscopy (06/12/2020 3:37 PM CDT) Anatomical Region Laterality Modality Other Historical Provider MD ENDOSCOPY PROCEDURES Ivelisse l Result from Last 3 Months or Most Recently Relevant to Health Maintenance Insurance [facility] [id number] [facility] [id number] Care Teams Press Operator Printing Relationship Specialty Start Date End Date Debra Pastrana DO [address] [facility] [place] [address] PCP - General Family Medicine 02/29/24 [place] [id number] [place] [address] Urology 08/06/24
--- OUTSIDE RECORDS SUMMARY | 2024-09-13 15:35 | XMS_ITS | Encounter Summary ---
Author Organization [facility] Healthcare Address [address] [place] [address] Care Team Providers Care Patient Care Technician Instructor Name Role Phone Debra Pastrana DO Primary Care Provider +1- [phone] Anna Lopez MD Unavailable Encounter Details Date Type Department Care Team (Latest Contact Info) Description 08/02/2024 Results Follow-Up [facility] Medical Group Gastroenterology at [address] [place] [phone] Mariola Rajan, BISQUE PLACER [address] [place] [address] [address] [place] [address] Ceruloplasmin, Hepatic function panel, JUAN DANIEL ab ql w/rflx to JUAN DANIEL rosen, Additional followed-up results: 7 Social History Tobacco Use Types Packs/Day Years Used Date Smoking Tobacco: Never Smokeless Tobacco: Never AUDIT-C Answer Date Recorded Q1: How often [...] on file 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 Gender Identity Not on file Sexual Orientation Not on file documented as of this encounter Plan of Treatment Not on file documented as of this encounter Visit Diagnoses Not on filedocumented in this encounter Additional Health Concerns Infection Onset Date Last Indicated Resolved Time COVID: Suspected 09/12/2024 09/12/2024 09/12/2024 5:45 PM CDT documented as of this encounter Care Teams Patient Care Technician Instructor Relationship Specialty Start Date End Date Debra Pastrana DO [address] [facility] [address] [place] [address] PCP - General Family Medicine 02/29/24 [place] [id number] [place] [address] Urology 08/06/24 documented as of this encounter
--- OUTSIDE RECORDS SUMMARY | 2024-09-13 15:35 | XMS_ITS | Encounter Summary ---
Author Organization [facility] Healthcare Address [address] [place] [address] Care Team Providers Care General Service Technician Name Role Phone Debra Pastrana DO Primary Care Provider [phone]- [phone] Anna Lopez MD Unavailable Reason for Visit * Reason Comments Possible infection Encounter Details Date Type Department Care Team (Late st Contact Info) Description 09/12/2024 6:45 PM CDT Office Visit [facility] at [address] [phone] Cyndee Gaines NP [address] [place] [address] [address] [place] [address] Acute cough (Primary Dx); Cellulitis of right thigh; Elevated blood pressure reading Social History Tobacco Use Types Packs/Day Years [...] on file 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 I strive to provide you with EXCELLENT service. You may receive a survey after your visit today. If you cannot rate your experience as EXCELLENT, please let us know how we can improve and better meet your needs. Thank you for choosing [facility]! It was my pleasure to see you today, I hope you feel better soon! Cyndee Gaines SUPERVISOR MENDING * Attachments The following attachments cannot be sent through Care Everywhere. * Acute Cough (AfterCare(R) Instructions(ER/ED)) (Macedonian) * Cellulitis (AfterCare(R) Instructions(ER/ED)) (Macedonian) documented in this encounter Ordered Prescriptions Prescription Sig Dispense Quantity Refills Last Filled Start Date End Date doxycycline (VIBRAMYCIN) 100 mg capsuleIndications :Cellulitis of right thigh Take 1 tablet/capsul e (100 mg total) by mouth 2 (two) times a day for 7 days 14 tablet/capsule 09/12/2024 benzonatate (TESSALON) 200 mg capsuleIndications :Acute cough Take 1 capsule (200 mg total) by mouth 3 (three) times a day as needed for cough 30 capsule 09/12/2024 documented in this encounter Progress Notes * Cyndee Gaines NP - 09/12/2024 6:45 PM CDT Images from the original note were not included. Subjective/Objective Patient ID: Russel Campbell is a 64 y.o. male. Chief Complaint Possible infection 64 year old male patient presents today with complaints of right leg pain and swelling beginning 2-3 days ago. Patient reports that he began giving himself testosterone injections over the last 2 weeks. Patient reports last injection was Monday. Patient also reports over the last 3 days sensation of chills and low-grade fever along with bilateral ear tenderness, cough, sore throat/swollen glands.Patient also reports that his blood pressure has been elevated when coming to the office however isnormal at home. Review of Systems All other systems reviewed and are negative. Physical Exam Vitals reviewed. Constitutional: Appearance: Normal appearance. He is normal weight. He is not ill-appearing. HENT: Head: Normocephalic. Right Ear: Ear canal and external ear normal. A middle ear effusion (Serous) is present. Tympanic membrane is not erythematous. Left Ear: Ear canal and external ear normal. A middle ear effusion (Serous) is present. Tympanic membrane is not erythematous. Nose: Nose normal. Mouth/Throat: Mouth: Mucous membranes are moist. Pharynx: Oropharynx is clear. Eyes: Pupils: Pupils are equal, round, and reactive to light. Cardiovascular: Rate and Rhythm: Normal rate and regular rhythm. Pulses: Normal pulses. Heart sounds: Normal heart sounds. Pulmonary: Effort: Pulmonary effort is normal. Breath sounds: Normal breath sounds. Comments: Mild cough noted Musculoskeletal: General: Normal range of motion. Cervical back: Normal range of motion. Skin: Capillary Refill: Capillary refill takes less than 2 seconds. Findings: Erythema (Erythema along with mild swelling noted to the right anterior lateral thigh, see attached picture circumference of the thigh measures 55 cm, left thigh measures 52 cm. Area of swelling is palpable at 12 cm x 9 cm) present. Neurological: General: No focal deficit present. Mental Status: He is alert and oriented to person, place, and time. Mental status is at baseline. Psychiatric: Mood and Affect: Mood normal. Behavior: Behavior normal. Thought Content: Thought content normal. Judgment: Judgment normal. Vitals: 09/12/24 1716 09/12/24 1720 BP: (!) 174/98 (!) 175/96 Pulse: 105 Resp: 22 Temp: 37.4 ??C (99.3 ??F) SpO2: 98% Weight: 103.9 kg (229 lb) No results found. Past Medical History: Diagnosis Date Allergies Anxiety HL (hearing loss) Hypertension Hypertension Nosebleed Current Outpatient Medications: amLODIPine (NORVASC) 5 mg tablet, Take 1 tablet (5 mg total) by mouth nightly, Disp: 90 tablet, Rfl: 1 ascorbic acid (VITAMIN C) 1,000 mg tablet, 1 tablet (1,000 mg total), Disp: , Rfl: aspirin 81 mg enteric coated tablet, Take 1 tablet (81 mg total) by mouth daily, Disp: 90 tablet, Rfl: 3 escitalopram (LEXAPRO) 5 mg tablet, Take 1 tablet (5 mg total) by mouth nightly, Disp: 90 tablet, Rfl: 3 ibuprofen (ADVIL,MOTRIN) 800 mg tablet, Take 1 tablet (800 mg total) by mouth every 8 (eight) hoursas needed for pain (pain), Disp: 90 tablet, Rfl: 5 MAGNESIUM ORAL, Take by mouth, Disp: , Rfl: potassium chloride ER (KLOR-CON) 10 mEq CR tablet, Take 1 tablet/capsule (10 mEq total) by mouth 2 (two) times a day, Disp: 60 tablet, Rfl: 5 tadalafiL (CIALIS) 5 mg tablet, , Disp: , Rfl: tamsulosin (FLOMAX) 0.4 mg extended release capsule, 1 capsule (0.4 mg total) daily, Disp: , Rfl: testosterone cypionate (DEPO-TESTOTERONE) 200 mg/mL injection, Inject 0.5 mL (100 mg total) into the muscle as instructed once a week, Disp: , Rfl: valsartan (DIOVAN) 320 mg tablet, Take 1 tablet (320 mg total) by mouth daily, Disp: 90 tablet, Rfl: 3 benzonatate (TESSALON) 200 mg capsule, Take 1 capsule (200 mg total) by mouth 3 (three) times a dayas needed for cough, Disp: 30 capsule, Rfl: 0 cyclobenzaprine (FLEXERIL) 10 mg tablet, Take 1 tablet (10 mg total) by mouth nightly as needed formuscle spasms (Patient not taking: Reported on 09/12/2024), Disp: 30 tablet, Rfl: 2 doxycycline (VIBRAMYCIN) 100 mg capsule, Take 1 tablet/capsule (100 mg total) by mouth 2 (two) times a day for 7 days, Disp: 14 tablet/capsule, Rfl: 0 methylPREDNISolone (MEDROL DOSEPACK) 4 mg Dosepack, Take as directed on package. (Patient not taking: Reported on 09/12/2024), Disp: 21 tablet, Rfl: 0 Allergies Allergen Reactions Atenolol Swelling and Angioedema Latex Anaphylaxis Buspar [Buspirone] Other (See comments) reports that it gives him a buzzy feeling like he's been drinking Social History Tobacco Use Smoking status: Never Smokeless tobacco: Never Substance and Sexual Activity Drug use: Not Currently Types: Alcohol Sexual activity: Not on file Alcohol Use: Not At Risk (08/06/2024) AUDIT-C Frequency of Alcohol Consumption: Monthly or less Average Number of Drinks: 1 or 2 Frequency of Binge Drinking: Never Past Surgical History: Procedure Laterality Date APPENDECTOMY CARPAL TUNNEL RELEASE Right 2007 KNEE SURGERY Right 1994 SPLENECTOMY, TOTAL TUMOR REMOVAL 1991 fatty tumor left breast UMBILICAL HERNIA REPAIR 05/2023 Procedures Assessment/Plan Recent Results (from the past 4 hours) POC Influenza A/B, COVID-19 antigen Collection Time: 09/12/24 5:43 PM Result Value Ref Range Influenza A Ag, POC Negative Negative Influenza B Ag, POC Negative Negative COVID-19 Ag POC Presumptive Negative Presumptive Negative, Invalid Diagnoses and all orders for this visit: Acute cough (Primary) - POC Influenza A/B, COVID-19 antigen - benzonatate (TESSALON) 200 mg capsule; Take 1 capsule (200 mg total) by mouth 3 (three) times a day as needed for cough Cellulitis of right thigh - doxycycline (VIBRAMYCIN) 100 mg capsule; Take 1 tablet/capsule (100 mg total) by mouth 2 (two) times a day for 7 days Elevated blood pressure reading Plan: Patient's viral testing is negative. Patient's physical exam shows a moderate amount of serous fluid to his bilateral TMs, there is no obvious infection. Patient does have a mild cough. He has lung sounds are clear. Patient does have what appears to be cellulitis to the right thigh. The erythema does not appear circumferential. Discussed with patient risk flag symptoms including progressionof the redness, progression of the swelling, increased pain, difficulty ambulating recommend ER evaluation. We will start patient on doxycycline as this will likely also cover for upper respiratory infection. Patient is agreeable to this. Discussed with patient recommend drinking a full glass of water and sitting upright after taking the medication. Disposition Treatment plan including expectations, follow up, and return precautions discussed with patient/parent, verbalizes understanding. Medication dosage, use, and potential adverse reactions discussed with patient/parent. Advised to follow up with PCP if symptoms do not resolve as expected or sooner if condition worsens. Signs/symptoms warranting ER evaluation reviewed. Patient and/or guardian was given an opportunity to ask questions, questions answered. Cyndee Gaines NP documented in this encounter Plan of Treatment Not on file documented as of this encounter Procedures Procedure Name Priority Date/Time Associated Diagnosis Comments POC INFLUENZA A/B, COVID-19 ANTIGEN Routine 09/12/2024 5:43 PM CDT Acute cough documented in this encounter Results * POC Influenza A/B, COVID-19 antigen (09/12/2024 5:43 PM CDT) Influenza A Ag, POC Negative Negative [facility] Influenza B Ag, POC Negative Negative [facility] COVID-19 Ag POC Presumptive Negative Presumptive Negative, Invalid [facility] Nasal 09/12/2024 5:43 PM CDT us Cyndee Gaines MANAGER MUTUAL FUND POINT OF CARE TEST ORDERAB LES Final Result [facility] CC EDW [address] [place] [address] documented in this encounter Visit Diagnoses Diagnosis Acute cough- Primary Cellulitis of right thigh Elevated blood pressure reading Elevated blood pressure reading without diagnosis of hypertension documented in this encounter Care Teams General Service Technician Relationship Specialty Start Date End Date Debra Pastrana DO [address] [facility] [place] [address] PCP - General Family Medicine 02/29/24 [place] [address] [place] [address] Urology 08/06/24 documented as of this encounter
--- OUTSIDE RECORDS SUMMARY | 2024-09-13 15:35 | XMS_ITS | Clinical Summary ---
Author Organization [facility] [address] Address [address] [place] [address] Care Team Providers Care Director Industrial Relations Name Role Phone Debra Pastrana Primary Care Provider [phone]- [phone] Anna Lopez MD Unavailable Allergies Active Allergy Reactions Criticality Noted Date [...] for it. There are a lot of wggl-iqd-clmxmaw remedies which generally do not help and [...] 02/29/2024 Assessment & Plan (02/29/2024 10:43 AM EMERGENCY DEPARTMENT MANAGER): Re-start medication, escitalopram. Do not re-start Buspirone due to side- effects. Labs ordered, consider therapy. Mild episode of recurrent major depressive disor izabel 02/29/2024 Assessment & Plan (02/29/2024 10:42 AM EMERGENCY DEPARTMENT MANAGER): Re-start medications, will follow. Labs ordered. Consider therapy. Drug-induced erectile dysfunction 02/29/2024 Assessment & Plan (02/29/2024 10:43 AM EMERGENCY DEPARTMENT MANAGER): Most likely secondary to anti-hypertensive medications. Referred to urology for further eval/mgmt. Primary hypertension 02/29/2024 Assessment & Plan (02/29/2024 10:44 AM EMERGENCY DEPARTMENT MANAGER): Uncontrolled, low sodium diet recommended. Continue current medications. Monitor BPS at home, record them, quick follow up recommended. Chronic bilateral low back pain without sciatica 02/29/2024 Assessment & Plan (02/29/2024 10:45 AM EMERGENCY DEPARTMENT MANAGER): XR of lumbar spine, will follow. Consider [...] May 2020 was normal. -Recommended starting an qkle-uxu-ugsldlx probiotic like [employer] or [employer] [facility]. -Also discussed muma-enw-bofdwjf ib letitia -If complaints continue discussed possible SIBO testing Assessment & Plan (02/29/2024 10:45 AM EMERGENCY DEPARTMENT MANAGER): Recommended screening colonoscopy. May also need GI f/u in office. Increased urinary frequency 02/29/2024 Assessment & Plan (02/29/2024 10:45 AM EMERGENCY DEPARTMENT MANAGER): Labs ordered, referred to urology for further eval/mgmt. Gastroesophageal reflux disease 08/15/2022 Overview (09/12/2024): Removal Reason: resolved Hypokalemia 06/03/2022 Asplenia 03/23/2022 Primary erectile dysfunction 09/10/2021 Generalized anxiety disorder 12/23/2020 Numbness 05/20/2019 Essential hypertension 05/20/2019 Encounters Date Type Department Care Team Description 09/12/2024 6:45 PM CDT Office Visit [facility] at [address] [address] Cyndee Gaines NP Acute cough (Primary Dx); Cellulitis of right thigh; Elevated blood pressure reading 09/09/2024 Telephone [facility] at [facility] [address] [place] [address] [address] [place] [address] Debra Pastrana DO Recommendation Request 09/03/2024 Telephone [facility] [address] [place], [place] [phone] Pop Wilburn MD Split sleep study results / cpap order 09/01/2024 8:00 PM CDT - 09/01/2024 11:59 PM CDT Hospital Encounter [facility] [address], [place] [phone] MELLISSA (obstructive sleep apnea) Discharge Disposition: Discharge to home or self care 08/26/2024 Orders Only [facility] [address] [facility] [address] [place] [address] Pop Wilburn MD MELLISSA (obstructive sleep apnea) (Primary Dx) 08/26/2024 Telephone [facility] [address] [place] [address] Emelina Lopez, [facility] Request for Split night sleep study 08/20/2024 Orders Only [facility] at [address] [place] [address] Mariola Rajan NP Elevated LFTs (Primary Dx); Gallbladder polyp 08/19/2024 1:00 PM CDT Office Visit [facility] [address] [facility] [address] [place] [address] Pop Wilburn MD MELLISSA (obstructive sleep apnea) (Primary Dx); Daytime sleepiness; BMI 30.0-30.9,adult; Nonsmoker 08/12/2024 Telephone [facility] at [facility] [address] [facility] 260 [place] [address] Debra Pastrana DO Medical Question/Miscellaneo us 08/06/2024 9:08 AM CDT - 08/06/2024 11:59 PM CDT Hospital Encounter [facility] [place] [address] [place] [address] Elevated LFTs Discharge Disposition: Discharge to home or self care 08/06/2024 8:00 AM CDT Office Visit [facility] at [facility] [address] [place] [address] [address] [place] [address] Debra Pastrana DO Cervical radicular pain (Primary Dx); DDD (degenerative disc disease), cervical 08/02/2024 Results Follow-Up [facility] at [address] [place] [address] Mariola Rajan NP Ceruloplasmin, Hepatic function panel, JUAN DANIEL ab ql w/rflx to JUAN DANIEL qn, Additional followed-up results: 7 07/15/2024 4:45 PM CDT Office Visit [facility] at [address] [address] Escobar Patterson NP Acute strain of neck muscle, initial encounter (Primary Dx); Elevated blood pressure reading in office with diagnosis of hypertension 07/15/2024 10:00 AM CDT Lab [facility] Office Bl [address] [place] [address] [address] [place] [address] Elevated LFTs 07/15/2024 9:00 AM CDT Office Visit [facility] [place] [address] [facility] [address] [place] [address] Mariola Rajan NP Elevated LFTs (Primary Dx); Abdominal bloating 06/24/2024 3:45 PM CDT Lab [facility] Office [facility] [address] [place] [address] Fatigue, unspecified type; Annual physical exam; Encounter for screening examination for impaired glucose regulation and diabetes mellitus; Elevated LFTs; Encounter for screening for other digestive system disorders 06/24/2024 3:00 PM CDT Office Visit [facility] at [facility] [address] [facility] [address] [place] [address] Debra Pastrana DO Annual physical exam (Primary Dx); Primary hypertension; Mild episode of recurrent major depressive disorder; Generalized anxiety disorder; Elevated LFTs; Fatigue, unspecified type; Daytime sleepiness; Encounter for screening for other digestive system disorders; Encounter for screening examination for impaired glucose regulation and diabetes mellitus 06/24/2024 Results Follow-Up [facility] at [facility] [address] [place] [address] [address] [place] [address] Debra Pastrana DO Total testosterone, Hemoglobin A1c, Comprehensive metabolic panel, eGFR from Last 3 Months Immunizations Immunization Administration Dates Next Due Influenza, Quadrivalent, Amelia l Culture-based MDCK, Antibiotic Free, Intramuscular 01/30/2020 Influenza, Quadrivalent, Spl it, Preservative Free, Intramuscular 12/24/2020,12/11/2018 Influenza, Unspecified 02/29/2024(Deferr ed: Patient Refused),11/13/2022(Deferred: Patient Refused),11/13/2021 Pfizer Sars-Cov-2 Bivalent V accination (12+ YRS) 11/14/2020,10/17/2020 Pneumococcal Polysaccharide PPV23 12/12/2018, Sars-CoV-2, Unspecified 11/14/2021,10/17/2021 Tdap 02/26/2021,02/13/2010 Surgical History Surgery Date Site/Laterality Comments APPENDECTOMY SPLENECTOMY, TOTAL TUMOR REMOVAL 02/13/1991 - 02/13/1992 fatty tumor left breast KNEE SURGERY 02/13/1994 - 02/12/1995 Right CARPAL TUNNEL RELEASE 02/13/2007 - 02/13/2008 Right UMBILICAL HERNIA REPAIR 05/15/2023 - 06/13/2023 Medical History Medical History Date Comments Hypertension Allergies Anxiety Hypertension HL (hearing loss) Nosebleed Family History Medical History Relation Name Comments Hypertension Father Stroke Father Hypertension Mother Stroke Mother Relation Name Status Comments Father Mother Social History Tobacco Use Types Packs/Day Years [...] on file Legal Sex Male 8:24 AM EMERGENCY DEPARTMENT MANAGER Gender Identity Not on file Sexual Orientation Not on file Obstetrics History Last Filed Vital Signs Vital Sign Reading [...] 08/19/2024 1:03 PM CDT Plan of Treatment Health Maintenance Due Date Last Done Comments Influenza Vaccine (#1) 2024 2, 12/24/2020, 01/30/2020, Additional history exists Pneumococcal vaccine <65 (3 of 3 - PCV) 02/13/2025 12/12/2018, 12/01/2018 Postponed from 12/13/2019 (Patient declined, but will receive in the future) Covid-19 Vaccine ( season) 2025 11/14/2021, 10/17/2021, 11/14/2020, Additional history exists Postponed from 10/15/2023 (Patient declined, but will receive in the future) Depression Screening 02/28/2025 02/29/2024 Zoster Vaccine (1 of 2) 02/28/2025 Post poned from 2011 (Patient declined, but will receive in the future) Regular Well Visit/Exam 18-64 06/24/2025 06/24/2024 Prostate Cancer Screening-PSA 02/28/2026 02/29/2024 Colon Cancer Screening-Colonoscopy 06/12/2030 06/12/2020 DTaP/Tdap/Td Vaccine (3 - Td or Tdap) 02/26/2031 02/26/2021, 02/13/2010 Hepatitis B Screening Completed 07/15/2024 Hepatitis C Screening Completed 07/15/2024, 025 Meningococcal B Vaccine Discontinued Procedures Procedure Name Priority Date/Time Associated Diagnosis Comments POC INFLUENZA A/B, COVID-19 ANTIGEN Routine 09/12/2024 5:43 PM CDT Acute cough PSG (SIMPLE) Routine 09/01/2024 9:06 PM CDT MELLISSA (obstructive sleep apnea) US RUQ Schedule Routine, Read Routine (OP Routine) 08/06/2024 9:57 AM CDT Elevated LFTs MITOCHONDRIAL ANTIBODIES, QUANTITATIVE Routine 07/15/2024 10:15 AM CDT Elevated LFTs [id number] Routine 07/15/2024 1 0:15 AM CDT Elevated [...] type PSA SCREEN Routine 02/29/2024 11:05 AM EMERGENCY DEPARTMENT MANAGER Screening PSA (prostate specific antigen) COLONOSCOPY Routine 06/12/2020 3:37 PM CDT from Last 3 Months or Most Recently Relevant to Health Maintenance Results * POC Influenza A/B, COVID-19 antigen (09/12/2024 5:43 PM CDT) Influenza A Ag, POC Negative Negative [facility] Influenza B Ag, POC Negative Negative [facility] COVID-19 Ag POC Presumptive Negative Presumptive Negative, Invalid [facility] Nasal 09/12/2024 5:43 PM CDT Cyndee Gaines NP POINT OF CARE TEST ORDERAB LES Final Result Performing Organization Address [facility] Co de Phone Number [facility] [address] * PSG (09/01/2024 9:06 PM CDT) Pop Wilburn MD SLEEP CENTER ORDERABLES Fin al Result Performing Organization Address [facility] Co de Phone Number [facility] SLEEP MEDICINE [address] [place] [address] * RUQ Ultrasound (08/06/2024 9:57 AM CDT) [...] thickening or pericholecystic fluid. No positive sonographic Seneca sign reported. BILIARY: There is no intrahepatic [...] signed by Paul SOLORIO T: Report ID: [id number] Reading Location: [id number] Procedure Note Paul Escoto MD - 08/16/2024 [...] thickening or pericholecystic fluid. No positive sonographic Seneca sign reported. BILIARY: There is no intrahepatic [...] signed by Paul SOLORIO T: Report ID: [id number] Reading Location: [id number] us Mariola Satinder ARCHITECTURAL EXAMINER IMG US PROCEDURES Final Resu lt * [...] last revised on 2019. Testing performed by: [facility], [address] [facility] [place] [address] Blood 07/15/2024 10:1 5 AM CDT 07/15/2024 5:54 PM CDT us Mariola Rajan NP LAB BLOOD ORDERABLES Final R esult Performing Organization Address [facility] Co de Phone Number [address] [place] [address] * Liver/kidney microsome type 1 antibody (07/15/2024 10:15 AM CDT) LKM-1 <5.0 <=20.0 (Negative) Units [place] ref Lab Comment: Test Performed by: [facility] [address] [id number] Retail Department Supervisor: Josue Antonio Ph.D.; CLIA# [id number] Blood 07/15/2024 10:1 5 AM CDT 07/15/2024 12:26 PM CDT Mariola Rajan NP LAB BLOOD ORDERABLES Final R esult Performing Organization Address City/[facility]/ZIP Co de Phone Number [address] [place] [address] [facility] ref [facility] * Smooth muscle antibody, qualitative (07/15/2024 10:15 AM CDT) Pathologist [facility] Anti-smooth muscle Negative Negative Comment:Testing performed by : [facility], [address] [place]., [address] Blood 07/15/2024 10:1 5 AM CDT 07/15/2024 5:54 PM CDT Mariola Rajan NP LAB BLOOD ORDERABLES Final R esult Performing Organization Address City/[facility] Co de Phone Number [address] [employer] [place] [address] * (ABNORMAL) Mitochondrial antibodies, quantitative (07/15/2024 10:15 AM CDT) Pathologist [facility] Anti-mitochondri al quant 1:40(A) Negative titer Comment: Interpretive Data Normal range for Anti-Mitochondrial antibody is negative (titers equal to or less than 1:20). Greater than 1:20 is positive - suggests primary biliary cirrhosis. Greater than 1:80 is positive - strong evidence of primary biliary cirrhosis. Current interpretive data was last revised on 07. Testing performed by: [facility], [address] [place] [address]., [id number] Blood 07/15/2024 10:1 5 AM CDT 07/15/2024 5:54 PM CDT Mariola Rajan NP LAB BLOOD ORDERABLES Final R esult Performing Organization Address City/[facility] Co de Phone Number [place] [address] [facility] [place] [address] * (ABNORMAL) Mitochondrial antibodies, qualitative (07/15/2024 10:15 AM CDT) Pathologist [facility] Anti-mitochond rial Positive(A ) Negative Comment:Testing performed by : [facility], [address] [place] [address], [place]., [address] Blood 07/15/2024 10:1 5 AM CDT 07/15/2024 5:54 PM CDT us Mariola Rajan NP LAB BLOOD ORDERABLES Final R [facility] Performing Organization Address City/[facility] Co de Phone Number CASSANDRA [address] [employer] [place] [address] * [id number] (07/15/2024 10:15 AM CDT) Pathologist [facility] alpha-1 antitrypsin 154 90 - 200 mg/dL Comment:Testing performed by : [facility], [address] [place] [address]., [address] Blood 07/15/2024 10:1 5 AM CDT 07/15/2024 7:37 PM CDT us Mariola Rajan NP LAB BLOOD ORDERABLES Final R [facility] Performing Organization Address [facility] Co de Phone Number CASSANDRA [address] [employer] [place] [address] * Ceruloplasmin (07/15/2024 10:15 AM CDT) [facility] Ceruloplasmin 23.8 15.0 - 30.0 mg/dL Comment:Testing performed by : [facility], [address] [place] [address]., [address] Blood 07/15/2024 10:1 5 AM CDT 07/15/2024 7:37 PM CDT us Mariola Rajan NP LAB BLOOD ORDERABLES Final R [facility] Performing Organization Address City/[facility] Co de Phone Number CASSANDRA [address] [employer] [place] [address] * Hepatitis panel, acute Blood (07/15/2024 10:15 AM CDT) Pathologist [facility] Hep A IgM Nonreactive Nonreactive Comment: Interpretive Data: If Hep A IgM Ab is reported as Equivocal, a new sample should be drawn in two weeks for testing. Current interpretive data was last revised on 19. Hep B core IgM Nonreactive Nonreactive [facility] Comment: Interpretive Data If HepB Core IgM Ab is reported as Equivocal, a new sample should be drawn in two weeks for testing. Current interpretive data was last revised on 19. Hep C Ab Nonreactive Nonreactive [facility] Comment: Antibodies to HCV not detected. Does [...] last revised on 2019. HepBsAg Nonreactive Nonreactive [facility] Blood 07/15/2024 10:1 5 AM CDT 07/15/2024 12:26 PM CDT Mariola Rajan NP LAB MICROBIOLOGY - GENERAL O RDERABLES Final Result [address] Department of Laboratories [place], [place] [id number] * (ABNORMAL) Hepatic function panel (07/15/2024 10:15 AM CDT) Bilirubin, total 0.3 0.1 - 1.2 mg/dL Bilirubin, direct 0.1 0.1 - 0.3 mg/dL [facility] Protein, pl 7.6 6.5 - 8.5 g/dL [facility] Albumin 4.0 3.5 - 5.0 g/dL [facility] Alk phos 66 40 - 130 Units/L [facility] ALT 68(H) 7 - 55 Units/L [facility] AST 57(H) 10 - 50 Units/L [facility] Blood 07/15/2024 10:1 5 AM CDT 07/15/2024 12:26 PM CDT Mariola Rajan ARCHITECTURAL EXAMINER LAB BLOOD ORDERABLES Final R esult Performing Organization Address [facility] Co de Phone Number CASSANDRA [address] [employer] [place] [address] * eGFR (06/24/2024 3:48 PM CDT) eGFR [...] BLOOD ORDERABLES Final Result Performing Organization Address [facility] Co de Phone Number CASSANDRA [address] [place] [address] * (ABNORMAL) Total testosterone (06/24/2024 3:48 PM CDT) Testosterone 192.00(L) 193.00 - 740.00 ng/dL Blood 06/24/2024 3:4 8 PM CDT 06/24/2024 4:26 PM CDT Debra Pastrana DO LAB BLOOD ORDERABLES Final Result Performing Organization Address [facility] de Phone Number [address] [address] * (ABNORMAL) Hemoglobin A1c (06/24/2024 3:48 PM CDT) [facility] Hgb A1C 6.0(H) 4.0 - 5.6 % Estimated Average Glucose 126 mg/dL [facility] Comment: The ADA recommends reporting an estimated Average Glucose (eAG) with all Hemoglobin A1c results using the equation derived from a study of 507 normal and diabetic adults. Minority populations were underrepresented and children were not included. (Diabetes Care 31:7875-3245, 2008). The eAG is not equivalent to a fasting glucose. Blood 06/24/2024 3:48 PM CDT 06/24/2024 4:26 PM CDT Debra Templeton [facility] LAB BLOOD ORDERABLES Final Result Performing Organization Address [facility] de Phone Number [address] [address] * (ABNORMAL) Comprehensive metabolic panel (06/24/2024 3:48 PM CDT) [facility] Sodium 143 135 - 145 mmol/L Potassium, pl 3.2(L) 3.3 - 4.9 mmol/L [facility] Chloride 104 97 - 110 mmol/L [facility] CO2 27 22 - 32 mmol/L [facility] Anion gap 12 2 - 15 mmol/L [facility] BUN 15 6 - 25 mg/dL [facility] Creatinine 1.26 0.80 - 1.30 mg/dL [facility] Glucose 98 70 - 199 mg/dL [facility] Comment: Interpretive Data Fasting glucose >/= 126 [...] 2022. Calcium 9.8 8.5 - 10.3 mg/dL [facility] Bilirubin, total 0.3 0.1 - 1.2 mg/dL [facility] Protein, pl 8.1 6.5 - 8.5 g/dL [facility] Albumin 4.2 3.5 - 5.0 g/dL [facility] Alk phos 67 40 - 130 Units/L [facility] ALT 69(H) 7 - 55 Units/L [facility] AST 55(H) 10 - 50 Units/L [facility] Blood 06/24/2024 3:48 PM CDT 06/24/2024 4:26 PM CDT Debra Pastrana LAB BLOOD ORDERABLES Final Result Performing Organization Address [facility] de Phone Number [address] [place] [address] * PSA screen (02/29/2024 11:05 AM EMERGENCY DEPARTMENT MANAGER) PSA-Total 0.70 <=5.40 ng/mL Comment: Interpretive Data [...] revised 21. Blood 02/29/2024 11:0 5 AM EMERGENCY DEPARTMENT MANAGER 02/29/2024 12:14 PM EMERGENCY DEPARTMENT MANAGER Debra Pastrana LAB BLOOD ORDERABLES Final Result Performing Organization Address [facility] Co de Phone Number [address] [place] [address] * Colonoscopy (06/12/2020 3:37 PM CDT) Anatomical Region Laterality Modality Other us Historical Provider ENDOSCOPY PROCEDURES Ivelisse l Result from Last 3 Months or Most Recently Relevant to Health Maintenance Insurance [facility] [id number] [facility] [id number] Care Teams Director Industrial Relations Relationship Specialty Start Date End Date Debra Pastrana DO [address] [facility] [address] [place] [id number] PCP - General Family Medicine 02/29/24 [place] [id number] [place] [id number] Urology 08/06/24
--- OUTSIDE RECORDS SUMMARY | 2024-09-13 15:35 | XMS_ITS | Clinical Summary ---
Author Organization [facility] Address [address] [place] [address] Care Team Providers Care Hotel Services Sales Representative Name Role Phone Xiomy Villegas NP Primary Care Provider [phone] Allergies Active Allergy Reactions Criticality Noted Date Comments Atenolol Angioedema 08/02/2018 Latex Rash 03/23/2022 Medications * This document contains information received from the source organization and may not represent a complete record from that organization. valsartan (DIOVAN) 320 MG tablet Take 1 tablet (320 mg) by mouth daily Active Cyanocobalamin (VITAMIN B 12 PO) Take Active vitamin C (ASCORBIC ACID) 250 MG tablet Take 2 tablets (500 mg) by mouth daily Active amLODIPine (NORVASC) 5 MG tablet TAKE 1 TABLET BY MOUTH ONCE DAILY FOR 30 DAYS 0 Active tadalafil (CIALIS) 20 MG tablet TAKE 1 TABLET BY MOUTH NEEDED 0 Active aspirin 81 MG chewable tablet Take 1 tablet (81 mg) by mouth daily Active omeprazole (PRILOSEC) 20 MG capsule Take 1 capsule (20 mg) by mouth as needed for Other Active olopatadine (PATADAY) 0.2 % opthalmic solution Place 2 drops into both eyes 1 (one) time each day Active diclofenac (VOLTAREN) 75 MG EC tablet 1 Active famotidine (PEPCID) 20 MG tablet 1 Active amLODIPine (NORVASC) 2.5 MG tablet 3 Active ascorbic acid (VITAMIN C) 1000 MG tablet 1 tablet (1,000 mg) 3 Active aspirin 81 MG EC tablet 1 tablet (81 mg) Active busPIRone (BUSPAR) 15 MG tablet buspirone 15 mg tablet Active cetirizine (ZYRTEC) 10 MG tablet 1 tablet (10 mg) Active Magnesium Oxide 200 MG TABS 1 each Active tamsulosin (FLOMAX) 0.4 MG capsule 3 Active triamterene (DYRENIUM) 50 MG capsule Take 1 capsule (50 mg) by mouth daily 3 Active potassium chloride (K-DUR) 20 MEQ tablet Take 1 tablet every day by oral route for 90 days. 3 Active Magnesium 400 MG TABS Take Active Ferrous Sulfate (SLOW RELEASE IRON) 50 MG TBCR Take 1 tablet (50 mg) by mouth daily Active Active Problems Problem Noted Date Diagnosed Date Gastroesophageal reflux disease 08/15/2022 08/15/2022 Overview (08/15/2022): Removal Reason: resolved Hypokalemia 06/03/2022 08/15/2022 Asplenia 03/23/2022 History of transient ischemic attack 03/23/2022 Primary erectile dysfunction 09/10/2021 Generalized anxiety disorder 12/23/2020 Essential hypertension 05/20/2019 Numbness 05/20/2019 Immunizations Immunization Administration Dates Next Due Covid-19 Vaccine Immunization Unspecified 2021,10/17/2021 Influenza Quadrivalent, Preservative Free 2020 Influenza, Quadrivalent (CCIIV4) 01/30/2020 Influenza, Seasonal Vaccine 11/13/2021 Pneumococcal Polysaccharide PPV23 12/12/2018, Tdap 02/26/2021,02/13/2010 Social History Tobacco Use Types Packs/Day Years Used Date Smoking Tobacco: Never Smokeless Tobacco: Never Tobacco Cessation:Counseling Given: Not Answered Alcohol Use Standard Drinks/Week Comments Never 0 (1 standard drink = 0.6 oz pur e alcohol) socially PHQ-2 Answer Date Recorded PHQ-2 Score 4 12/19/2022 Alcohol Use Answer Date Recorded Frequency of Alcohol Consumption Not on file 07/25/2023 Average Number of Drinks Not on file 024 Frequency of Binge Drinking Not on file 07/14 Alcohol Use Status Never 07/25/2023 Average alcohol consumption Not on file 07/14 Sex and Gender Information Value Date Recorded Sex Assigned at Male 12/20/2022 8:51 AM CONSTRUCTION ANALYST Legal Sex Male 3:31 PM CDT Gender Identity Male 12/20/2022 8:51 AM CONSTRUCTION ANALYST Sexual Orientation Straight 12/20/2022 8: 51 AM CONSTRUCTION ANALYST Last Filed Vital Signs Vital Sign Reading Time Taken Comments Blood Pressure 150/80 02/14/2023 1:01 PM EST Pulse 85 02/14/2023 1:01 PM EST Temperature 37.2 C (98.9 F) 02/14/2023 1:01 PM EST Respiratory Rate 16 02/14/2023 1:01 PM EST Oxygen Saturation 97% 02/14/2023 1:01 PM EST Inhaled Oxygen Concentration - - Weight 89.8 kg (198 lb) 02/14/2023 1:01 PM EST Height 180.3 cm (5' 11) 02/14/2023 1:01 PM EST Body Mass Index 27.62 02/14/2023 1:01 PM EST Plan of Treatment Health Maintenance Due Date Last Done Comments HIV Screening 1960 Hepatitis C Screening ages 18 to 79 once 1960 MMR VACCINES (1 of 1 - Standard series) 1962 HIB VACCINES (1 of 1 - Risk 1-dose series) 07/07/1962 MENINGOCOCCAL VACCINE (1 - Risk 2-dose series) 1963 Meningococcal B Vaccine (1 of 4 - Increased Risk) 1971 Colon Cancer Screening 2006 Zoster Vaccine (Recombinant Vaccine) (1 of 2) 2011 Pneumococcal Vaccine: Peds to 50 & At-Risk Patients (3 of 3 - PCV) 12/13/2019 12/12/2018, 12/01/2018 LIPID TESTING 03/12/2023 03/12/2022 COVID-19 Immunization ( season) 2023 11/14/2021, 10/17/2021, 11/14/2020, Additional history exists DEPRESSION SCREENING 12/15/2023 12/14/2022 YEARLY WELLNESS EXAM 05/08/2024 05/09/2023, 03/04/2022, 02/26/2021, Additional history exists Influenza Vaccine 09/13/2024 11/13/2021, , 01/30/2020 ADULT TETANUS 02/26/2031 02/26/2021, 02/13/2010 RSV Vaccines (1 - 1-dose 75+ series) 2036 HEPATITIS A VACCINES Aged Out No long er eligible based on patient's age to complete this topic HEPATITIS B VACCINES Aged Out No long er eligible based on patient's age to complete this topic HPV VACCINES Aged Out No longer eligi ble based on patient's age to complete this topic IPV VACCINES Aged Out No longer eligi ble based on patient's age to complete this topic ROTAVIRUS VACCINES Aged Out No longer eligible based on patient's age to complete this topic Procedures Procedure Name Priority Date/Time Associated Diagnosis Comments LIPID PROFILE Routine 03/12/2022 9:35 AM EST from Last 3 Months or Most Recently Relevant to Health Maintenance Results * (ABNORMAL) LIPID PROFILE (03/12/2022 9:35 AM EST) Cholesterol 181 <200 mg/dL [facility] Triglycerides 88 <150 mg/dL [facility] HDL Cholesterol 41 >40 mg/dL [facility] Comment: Low (undesirable, high risk): <40.0 mg/dL High (desirable, low risk); >60 mg/dL LDL Cholesterol 137(H) <100 mg/dL [facility] Comment: LDL CHOLESTEROL INTERPRETATION GUIDELINES: Below 100 mg/dL is desirable. 100-129 mg/dL is considered borderline high. 130 mg/dL and above is considered high risk. The higher the value, the greater the risk of CHD. Blood (PLASMA) 03/12/2022 9: 35 AM EST 03/12/2022 9:35 AM EST Narrative [facility] - 03/12/2022 11:08 AM EST Lab Results: [facility] Date/Time: 03/12/2022 11:08 Ordered by: XIOMY VILLEGAS us Xiomy Villegas DAY CARE TEACHER CHEMISTRY ORDERABLES Final Re sult [facility] [address] [place] [address], [facility] from Last 3 Months or Most Recently Relevant to Health [place] [id number] [place] [id number] [employer] Care Teams Hotel Services Sales Representative Relationship Specialty Start Date End Date Xiomy Villegas NP [address] [id number] PCP - General Nurse Practitioner-Family 06/26/21
[2024-09-13 15:37] VITALS: BP 179/88; PULSE 91; RESP 18; TEMP 36.6; O2SAT 97
[2024-09-13 17:57] LABS: Hematocrit 37.0 % (42.0-52.0); Hemoglobin 12.2 g/dL (14.0-18.0); Immature Granulocyte Percent A 0.3 % (0-0.5); Lymphocytes Absolute Auto 2.72 K/mm3 (0.9-3.2); Mean Corpuscular HGB Conc 33.0 g/dl (32-36); Mean Corpuscular Hemoglobin 29.0 pg (26-34); Mean Corpuscular Volume 88.1 fl (80-100); Nucleated Red Blood Cells Absolute Auto 0.000 K/mm3 (0.0-0.012); Nucleated Red Blood Cells Perc 0.0 % (0.0-0.2); Platelet Count Result 521 k/mm3 (150-375); Red Blood Count 4.20 M/mm3 (4.6-6.20); White Blood Count 9.7 K/mm3 (4.5-10.0)
--- NOTE | 2024-09-13 17:57 | ED_ITS ---
HPI - Skin/Abscess/Foreign Bdy General Chief complaint: Skin/Abscess/Foreign Body Stated complaint: cellulitis Time Seen by Provider: 09/13/24 17:03 Source: patient Mode of arrival: ambulatory Limitations: no limitations History of Present Illness HPI narrative: Patient is a 64-year-old male who presents the ED with concern for cellulitis of his right lower extremity. Patient has been using steroid injections in his right thigh over the past 6 weeks. States his last injection was on Monday and he began developing swelling, redness, warmth surrounding the injection site. Has since developed diffuse redness, swelling, warmth throughout the entire leg from mid thigh down. He was seen in urgent care last night and prescribed doxycycline. He has had 2 doses of this. States today the swelling seemed to be worse and he prompted here for further evaluation. Denies fevers. Denies history of diabetes. Denies numbness. Related Data Allergies Allergy/AdvReac Type Severity Reaction Status Date / Time atenolol AdvReac Swelling Verified 09/13/24 19:06 Review of Systems 2 Review of Systems: All systems reviewed & are unremarkable except as noted in HPI. All systems reviewed & are unremarkable except as noted in HPI and below Exam 2 Narrative: GENERAL: Well appearing, well-nourished, non-toxic, in no acute distress. HEAD: Normocephalic, atraumatic. RESPIRATORY: Airway patent, respirations nonlabored. CARDIOVASCULAR: Regular rate and rhythm. Pedal pulses are intact and easily palpable. MUSCULOSKELETAL: Moves all extremities. No gross deformities. Large indurated area to right lateral anterior thigh with surrounding redness, warmth. No significant fluctuance or evidence of abscess. There is redness, warmth, swelling extending down anterior lindquist in to foot and ankle. No significant focal tenderness. No focal redness/warmth around knee. Full range of motion of right knee. Sensation intact throughout extremity. SKIN: Warm, dry, normal color. NEURO: A&O X3. Speech clear. Steady gait. No ataxic movements. PSYCHIATRIC: Appropriate mood and affect. Normal interaction. Course Vital Signs Vital signs: Vital Signs Temperature 97.8 F 09/13/24 15:37 Pulse Rate 91 09/13/24 15:37 Respiratory Rate 18 09/13/24 15:37 Blood Pressure 179/88 H 09/13/24 15:37 Pulse Oximetry 97 09/13/24 15:37 Temperature 97.8 F 09/13/24 15:37 Pulse Rate 84 09/13/24 20:38 Respiratory Rate 19 09/13/24 20:38 Blood Pressure 169/86 H 09/13/24 20:38 Pulse Oximetry 99 09/13/24 20:38 MDM - Skin/Abscess/Foreign Bdy MDM Narrative Medical decision making narrative: Patient presented to ED with concern for cellulitis to right lower extremity. Has been injecting testosterone into right thigh for the past 6 weeks. Started on doxycycline last night, per reported worsening symptoms today. Vital signs are stable. Patient is afebrile. Laboratory studies obtained and fairly reassuring. No leukocytosis. Stable H&H. Potassium is low on CMP at 2.9. This appears to be a chronic issue for patient. He is on potassium supplements. Given 40 mEq of KCl in the ED. Mag is within normal range. Venous Doppler ultrasound obtained of right lower extremity and negative for DVT or superficial thrombophlebitis. No evidence of abscess in area of concern. Discussed lab and imaging findings with patient. Do not feel he has failed outpatient therapy as he was only started on doxycycline last night. Will add on Keflex for additional cellulitic coverage. Otherwise feel patient is safe for D/C home with strict return precautions should symptoms worsen or continue. He is in agreement with this plan. He does feel comfortable going home. He has follow-up upcoming with his primary care doctor. I advised patient to discuss with primary the testosterone injections and or alternative sites for injections. Advised to avoid any further injections into the right thigh. Again emphasized strict return precautions. Patient voiced understanding. Discharged in stable condition. Medical Records Attestation: I reviewed the patient's medical records. Lab Data Attestation: I reviewed the patient's lab results. 09/13/24 17:47 09/13/24 17:47 Labs: Lab Results 09/13/24 Range/Units 17:47 WBC 9.7 (4.5-10.0) K/mm3 RBC 4.20 L (4.6-6.20) M/mm3 Hgb 12.2 L (14.0-18.0) g/dL Hct 37.0 L (42.0-52.0) % MCV 88.1 (80-100) fl MCH 29.0 (26-34) pg MCHC 33.0 (32-36) g/dl RDW 17.3 H (11.5-14.5) % Plt Count 521 H (150-375) k/mm3 MPV 11.0 H (7.4-10.4) fl Immature Gran % (Auto) 0.3 (0-0.5) % Neut % (Auto) 49.2 (45.5-73.1) % Lymph % (Auto) 28.0 (18.3-44.2) % [place] % (Auto) 19.5 H (2.6-8.5) % Eos % (Auto) 2.3 (0-4.4) % Baso % (Auto) 0.7 (0.2-1.2) % Lymph # (Auto) 2.72 (0.9-3.2) K/mm3 [place] # (Auto) 1.9 H (0.1-0.6) K/mm3 Eos # (Auto) 0.2 (0-0.3) K/mm3 Baso # (Auto) 0.1 (0.0-0.1) K/mm3 Abs Immat Gran (auto) 0.03 (0.00-0.031) K/mm3 Absolute Neuts (auto) 4.8 (1.3-6.7) K/mm3 Absolute Nucleated RBC 0.000 (0.0-0.012) K/mm3 Nucleated RBC % 0.0 (0.0-0.2) % PT 14.0 (11.1-14.7) Seconds INR 1.1 APTT 31.9 (22.3-36.8) Seconds Sodium 142 (137-145) mmol/L Potassium 2.9 L (3.4-5.0) mmol/L Chloride 103 (98-107) mmol/L Carbon Dioxide 30 (22-30) mmol/L Anion Gap 9 (4-12) mmol/L BUN 12 (9-20) mg/dL Creatinine 1.02 (0.7-1.3) mg/dL Estim Creat Clear Calc 79 ml/min Estimated GFR > 60 (59 - ) Glucose 85 (65-110) mg/dL Calcium 9.5 (8.4-10.2) mg/dL Magnesium 1.8 (1.6-2.3) mg/dL Total Bilirubin 0.5 (0.2-1.3) mg/dL AST 46 (17-59) U/L ALT 44 (6-50) U/L Alkaline Phosphatase 60 (38-126) U/L Total Protein 8.0 (6.3-8.2) g/dL Albumin 4.1 (3.5-5.1) g/dL Imaging Data Attestation: I personally reviewed and interpreted this imaging study as follows: Radiologist's impression: ITS Impressions Venous Doppler Study 09/13/24 19:25 IMPRESSION: Patent right lower extremity veins. No evidence of deep venous thrombosis. Discharge Plan Discharge Clinical Impression: Cellulitis of right lower extremity Patient Disposition: Home Condition: Stable Instructions: Antibiotic Form, Cellulitis (ED) Additional Instructions: Take both antibiotics (Keflex and doxycycline) as prescribed for cellulitis. Avoid any further injections into the right leg. Contact your primary care doctor for continued management of testosterone injections. Elevate leg whenever possible. Recommend Tylenol/ibuprofen as needed for discomfort. Return to the ED if you experience worsening or severe redness/swelling/pain, fevers, unable keep down food or drink, or any other symptoms of concern. Patient Language: Japanese Prescriptions: New cephalexin 500 mg capsule 500 mg PO Q6H 7 Days Qty: 28 0RF No Action amlodipine 5 mg tablet 5 mg PO DAILY Qty: 90 0RF potassium gluconate 600 mg (99 mg) tablet 600 mg PO DAILY Qty: 10 0RF Follow-up/Referrals: UNKNOWN,DOCTOR [Primary Care Provider] - Stand Alone Forms: Work/School Release IP Time of Disposition: 20:22
[2024-09-13 18:11] LABS: INR 1.1; Prothrombin Time 14.0 Seconds (11.1-14.7)
[2024-09-13 18:12] LABS: Partial Thromboplastin Time 31.9 Seconds (22.3-36.8)
[2024-09-13 18:13] LABS: Alanine Aminotransferase 44 U/L (6-50); Albumin Level 4.1 g/dL (3.5-5.1); Alkaline Phosphatase 60 U/L (38-126); Anion Gap 9 mmol/L (4-12); Aspartate Amino Transferase 46 U/L (17-59); Bilirubin,Total 0.5 mg/dL (0.2-1.3); Blood Urea Nitrogen 12 mg/dL (9-20); Calcium 9.5 mg/dL (8.4-10.2); Carbon Dioxide 30 mmol/L (22-30); Chloride 103 mmol/L (98-107); Estimated CRCL calculation 79 ml/min; Estimated Glomerular Filt Rate > 60; Glucose 85 mg/dL (65-110); Potassium 2.9 mmol/L (3.4-5.0); Sodium 142 mmol/L (137-145); Total Protein 8.0 g/dL (6.3-8.2)
[2024-09-13] MEDS: POTASSIUM CHLORIDE 20 MEQ ER TABLET 40 MEQ PO (18:56)
[2024-09-13 19:26] VITALS: BP 164/88; PULSE 88; RESP 23; O2SAT 99
[2024-09-13 19:26] LABS: Magnesium 1.8 mg/dL (1.6-2.3)
[2024-09-13] MEDS: CEPHALEXIN 500 MG CAPSULE PO (20:32)
[2024-09-13 20:38] VITALS: BP 169/86; PULSE 84; RESP 19; O2SAT 99
== END 2024-09-13 20:40 | disposition home or self-care (01) ==
PROVIDERS: Emergency Provider Physician Assistant
DX: T80.29XA Infection following other infusion, transfusion and therapeutic injection, initial encounter (principal); L03.115 Cellulitis of right lower limb; Y84.8 Other medical procedures as the cause of abnormal reaction of the patient, or of later complication, without mention of misadventure at the time of the procedure
CPT/HCPCS: 36415; 80053; 83735; 85025; 85610; 85730; 93971; 99284; A9270

== ENCOUNTER 2025-01-04 20:31 | Emergency (ER) | payer OTHER, SELFPAY ==
--- OUTSIDE RECORDS SUMMARY | 2012-06-14 15:45 | XMS_ITS | Continuity of Care Document ---
Author Organization [facility] Address [address] [place] [address] Phone Care Team Providers Care Pyridine Recovery Operator Name Role Phone Unavailable Unavailable Unavailable Allergies, Adverse Reactions, Alerts Substance Reaction Status Criticality No Known Drug Allergies Other Active No I nformation Medications Medication Instructions Dosage Effective Dates (start - stop) Status Comments Norvasc 10 mg Tab take 1 tablet (10MG) by oral route every day - Active lisinopril 20 mg Tab take 1 tablet (20MG ) by oral route every day 20 MG - Active ATENOLOL 25 MG TABLET take 1 tablet (25M G) by oral route every day 25 MG - Active Zyrtec 10 mg tablet take 1 tablet (10MG) by oral route every day 10 MG - Active triamcinolone acetonide 0.1 % Ointment apply by topical route 2 times every day a thin layer to the affected area(s) for 7 days - Active amlodipine 5 mg Tab take 1 tablet (5MG) by oral route every day 5 MG - Active Advance Directives Directive Yes / No Effective Date File Name No Information Encounters Encounter Description Practice Location Reason(s) For Visit Diagnoses Date Provider Providers Copied on Encounter [facility], [address], [place], [place], [address] , tel:[phone] [facility] No Information 3 [facility], [address], [place], [place], [address] , tel: [phone] [facility] No Information 3 No Information [facility], [address], [place], [place], [address] , tel: [phone] [facility] No Information 2 Cyrus Maldonado. [address] [place] [address], [address], [place], [place], [address], . tel:[phone] [facility], [address], [place], [place], [address] , tel: [phone] [facility] Dermatitis due to plants, including poison ed, suDifficulty sleeping 2 Yury L[place]. [address] [place] [address], [address], [place], [place], [address]. tel:[phone] Referring Provider: Joel Bridges, [address] [place] [address] [address], [place], [place], [address] [place] [address] . tel:[phone] [facility], [address], [place], [place], [address] , tel: [phone] [facility] Unspecified essential hypertensionKidney StoneAnxiety state, unspecified 2 Cyrus Maldonado. [address] [place] [address], [address], [place], [place], [address], . tel:[phone] [facility], [address], [place], [place], [address] , tel: [phone] [facility] NEED FOR PROPHYLACTIC VACCINATION AND INOCULATION AGAINST TETANUS-DIPHTHERIA [TD] (DT)NEED FOR PROPHYLACTIC VACCINATION WITH COMBINED DIPHTHERIA-TETANUS -PERTUSSIS (DTP) (DTAP) VACCINE 1 Cyrus Maldonado. [address] [place] [address], [address], [place], [place], [address], . tel:[phone] Referring Provider: Joel Bridges, [address] [place] [address] [address], [place], [address] . tel:[phone] [facility], [address], [place], [place], [address] , tel: [phone] [facility] BENIGN HYPERTENSIONVIRAL DIS CONTACT NEC 0 Cyrus Maldonado. [id number] [place] [address], [address], [place], [place], [address], [place]. tel:[phone] [facility], [address], [place], [place], [address] , [place] tel: [phone] [facility] HYPERLIPIDEMIA NEC/NOS 0 Cyrus Maldonado. [address] [place] [address], [address], [place], [place], [address], [place]. tel:[phone] [facility], [address], [place], [place], [address] , [place] tel: [phone] [facility] ESOPHAGEAL REFLUX [address] [place] [address], [address], [place], [place], [address], [place]. tel:[phone] [facility], [address], [place], [place], [address] , [place] tel: [phone] [facility] DIZZINESS AND GIDDINESSABDMNAL PAIN UNSPCF SITE 6 Cyrus Maldonado. [address] [place] [address], [address], [place], [place], [address], [place]. tel:[phone] [facility], [address], [place], [place], [address] , [place] tel: [phone] [facility] No Information 0 6 Cyrus Maldonado. [address] [place] [address], [address], [place], [place], [address], [place]. tel:[phone] [facility], [address], [place], [place], [address] , [place] tel: [phone] [facility] BLOOD IN STOOLACUTE SINUSITIS NOS 6 Cyrus Maldonado. [address] [place] [address], [address], [place], [place], [address], [place]. tel:[phone] [facility], [address], [place], [place], [address] , [place] tel: [phone] [facility] EPISODIC MOOD DISORD NEC 5 Cyrus Maldonado. [address] [place] [address], [address], [place], [place], [address], . tel:[phone] [facility], [address], [place], [place], [address] , tel: [phone] [facility] IMPOTENCE, ORGANIC ORIGNMIXED HYPERLIPIDEMIA 7200 4 Bridges Joel. [address] [place] [address], [address], [place], [place], [address], [place]. tel:[phone] [facility], [address], [place], [place], [address] , tel: [phone] [facility] PAIN IN LIMB 1200 4 Conversion Doctor. [address] [place] [address], [facility], . [facility], [address], [place], [place], [address] , tel: [phone] [facility] ANXIETY STATE NOSPALPITATIONS 0200 4 Conversion Doctor. [address] [place] [address], [facility], [place]. [facility], [address], [place], [place], [address] , tel: [phone] [facility] ACUTE URI NOS 5200 3 Conversion Doctor. [address] [place] [address], [facility], . [facility], [address], [place], [place], [address] , tel: [phone] [facility] [place] VAC STRPTCS PNEUMNI BVACCIN FOR INFLUENZADERMATOPH YTOSIS OF NAILCHRONIC RHINITISDIARRHEA 3-200 3 Cyrus Maldonado. [address] [place] [address], [address], [place], [place], [address], . tel:[phone] Family History Family Member Type Diagnosis Age At Onset Father Problem (finding) hypertension Mother Problem (finding) malignant neoplasm of u rinary bladder Problem (finding) Family history of Diabe patric mellitus Father Problem (finding) Heart disease Immunizations Vaccine Date Status Comments Tdap (Adacel r) administered Source: New Immunization Record 29507 - Influenza administered Source: So urce Unspecified 41992 - Pneumococcal_PPV23 administered S ource: Source Unspecified Payers Payer name Insurance type Covered democrat ID Authoriza tion(s) No Information Social History Type Description Quantity Date Captured Comments Sex Male Smoking Status No Information Chief Complaint And Reason For Visit No Information Reason For Referral Reason For Referral No Information History Of Present Illness Encounter Date Complaint History Of Prese nt Illness No Information Functional Status Date Functional Assessmen t No Information Instructions Date Instruction Additional Infor mation No Information Assessments Type Assessment Date No Information Patient Care Teams Name Effective Dates (start - stop) Status Members No Information
[2025-01-04] VITALS (16 sets, daily range): BP systolic 168–187; BP diastolic 92–102; PULSE 94–109; RESP 20–24; TEMP 36.9; O2SAT 87–98
--- NOTE | ~2025-01-04 | CT_ITS ---
EXAMINATION: CT abdomen pelvis w con DATE: 01/04/2025 21:40 INDICATION: Abdominal pain. Diarrhea. TECHNIQUE: Computed tomography (CT) of the abdomen and pelvis was performed with 100 mL Omnipaque 350 intravenous contrast. Automated exposure control and iterative reconstruction technique were employed. The dose-length product was 947.49 mGy-cm. COMPARISON: None. FINDINGS: The visualized portions of the lung bases demonstrate mild atelectasis. No pleural effusion. The heart size is normal. No pericardial effusion. There is bilateral gynecomastia. The liver and gallbladder are normal. The spleen is absent. The pancreas and adrenal glands are normal. There are cy sts in the kidneys measuring up to 1.9 cm on the right. There are 2 mm and 5 mm stones in right kidney. There are 4 stones in left kidney measuring up to 7 mm. There is a 9 mm hyperdense mass in left kidney. There is a left inguinal hernia containing fat. The prostate is mildly enlarged. The appendix is not visualized. There are multiple dilated loops of small bowel without focal transition point, consistent with adynamic ileus. There is wall thickening of loops of small bowel, consistent with enteritis. There is fat stranding at the root of the small bowel mesentery. There is a small volume of ascites. There are no pathologically enlarged lymph nodes. There is moderate lumbar spondylosis. IMPRESSION: 1. Wall thickening of small bowel loops with dilatation of small bowel loops, consistent with enteritis and adynamic ileus. 2. Small volume of ascites. 3. 9 mm left kidney mass, which may be a hemorrhagic cyst or renal cell carcinoma. Abdomen CT or MRI without and with contrast is recommended. 4. 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 Reviewed, dictated and finalized at location E. EXTINGUISHER MECHANIC IMPRESSION: 1. Wall thickening of small bowel loops with dilatation of small bowel loops, c onsistent with enteritis and adynamic ileus. 2. Small volume of ascites. 3. 9 mm left kidney mass, which may be a hemorrhagic cyst or renal cell carcino ma. Abdomen CT or MRI without and with contrast is recommended. 4. Fat stranding at the root of the small bowel mesentery, consistent with rehan a versus inflammation (mesenteric panniculitis).
--- OUTSIDE RECORDS SUMMARY | 2025-01-04 20:34 | XMS_ITS | Clinical Summary ---
Author Organization [facility] Address [address] [place] [id number] Care Team Providers Care Conference Specialist Name Role Phone Unavailable Primary Care Provider [...] 1960 Annual Physical 1964 Hepatitis C 1979 Zoster Vaccines (1 of 2) 2011 Pneumococcal Vaccine: 50+ Years (2 of 2 - PCV) 12/13/2019 12/12/2018, 12/01/2018 COVID-19 Vaccine ( season) 2024 11/14/2021, 10/17/2021, 11/14/2020, Additional history exists Influenza Adult (#1) 2024 11/13/2021, 12/24/2020, 01/30/2020, Additional history exists DTaP, Tdap and Td Vaccines (3 - Td or Tdap) 02/26/2031 02/26/2021, 02/13/2010 RSV Immunization or 60+ Years (1 - 1-dose 75+ series) 2036 Hepatitis A Vaccines Aged Out No long er eligible based on patient's age to complete this topic Meningococcal B Vaccine Aged Out No l onger eligible based on patient's age to complete this topic Meningococcal Vaccine Aged Out No ed giulia eligible based on patient's age to complete this topic RSV Immunizations Under 20 Months Aged Out No longer eligible based on patient's age to complete this topic Insurance [employer] OPEN ACCESS [facility]
--- OUTSIDE RECORDS SUMMARY | 2025-01-04 20:34 | XMS_ITS | Encounter Summary ---
Author Organization [facility] Healthcare Address [address] [place] [address] Care Team Providers Care Vineyardist Name Role Phone Debra Pastrana DO Primary Care Provider [phone] Anna Lopez MD Unavailable Mariola Rajan NP Unavailable [phone] Pop Wilburn MD Unavailable Denny Fernando MD Unavailable [phone] Micha Ashley MD Unavailable [phone] Encounter Details Date Type Department Care Team (Late st Contact Info) Description 12/30/2024 Results Follow-Up [facility] Medical Group Family Medicine at [address] [address] Debra Pastrana DO [address] [place] [id number] Comprehensive metabolic panel, eGFR Social History Tobacco Use Types Packs/Day Years Used Date Smoking Tobacco: Never Smokeless Tobacco: Never Alcohol Use Standard Drinks/Week Comments Yes 0 (1 standard drink = 0.6 oz pur e alcohol) PHQ-2 Answer Date Recorded PHQ-2 Total Score 0 12/23/2024 PHQ-9 Answer Date Recorded PHQ-9 Total Score 0 12/23/2024 AUDIT-C Answer Date Recorded Q1: How often do you have a drink containing alc ohol? Monthly or less 12/23/2024 Q2: How many drinks containi ng alcohol do you have on a typical day when you are drinking? 1 or 2 12/23/2024 Q3: How often do you have si x or more drinks on one occasion? Never 12/23/2024 Sex and Gender Information Value Date Recorded Sex Assigned at Not on file Legal Sex Male 8:24 AM PRODUCTION RECORDER Gender Identity Not on file Sexual Orientation Not on file documented as of this encounter Functional Status * BP Location Answer Date of Assessment Author Right arm 12/30/2024 11:15 AM PRODUCTION RECORDER Abdiel Mitchell RN * BP Location Answer Date of Assessment Author Right arm 12/30/2024 11:15 AM PRODUCTION RECORDER Abdiel Mitchell RN documented as of this encounter Ordered Prescriptions Prescription Sig Dispense Quantity Refills Last Filled Start Date End Date potassium chloride ER (KLOR-CON) 20 mEq CR tabletIndications: Hypokalemia Take 1 tablet (20 mEq total) by mouth 2 (two) times a day 180 tablet 3 12/30/2024 12/30/2025 documented in this encounter Miscellaneous Notes * Result Encounter Note - August Barton MA - 12/31/2024 9:33 AM PRODUCTION RECORDER LM to call office UCTION RECORDER documented in this encounter Plan of Treatment Scheduled Orders Name Type Priority Associated Diagnoses Orde r Schedule Basic metabolic panel Lab Routine Hypokalemia Expected: 12/30/2024, Expires: 03/01/2025 documented as of this encounter Visit Diagnoses Diagnosis Hypokalemia- Primary Hypopotassemia documented in this encounter Discontinued Medications Medication Sig Discontinue Reason Start Date End Da te potassium chloride ER (KLOR-CON) 10 mEq CR tabletIndications:Hypokal emia Take 1 tablet/capsule (10 mEq total) by mouth 2 (two) times a day Alternate therapy 12/23/2024 12/30/2024 documented as of this encounter Care Teams Vineyardist Relationship Specialty Start Date End Date Debra Pastrana DO [address] [facility] [place] [address] PCP - General Family Medicine 02/29/24 [place] [address] [place] [address] Urology 08/06/24 Mariola Rajan NP [address] [facility] [address] [place] [address] [place] [address] Nurse Practitioner Gastroenterology 09/30/24 Pop Wilburn MD [address] [facility] [address] [place] [address] [place] [address] Consulting Physician Sleep Medicine 09/30/24 Denny Fernando MD [address] [place] [address] Consulting Physician Otolaryngology 09/30/24 Micha Ashley MD [address] [facility] [address] [place] [address] [address] Consulting Physician Cardiology 12/20/24 documented as of this encounter
--- OUTSIDE RECORDS SUMMARY | 2025-01-04 20:34 | XMS_ITS | Encounter Summary ---
Author Organization [facility] Healthcare Address [address] [place] [address] Care Team Providers Care Proposal Review Analyst Name Role Phone Debra Pastrana DO Primary Care Provider [phone] Anna Lopez MD Unavailable Mariola Rajan NP Unavailable [phone] Pop Wilburn MD Unavailable [phone] Denny Fernando MD Unavailable [phone] Micha Ashley MD Unavailable [phone] Encounter Details Date Type Department Care Team (Late st Contact Info) Description 12/06/2024 Results Follow-Up [facility] Medical Group [facility] at [place] [address] [place] [address] [place] [address] [place] [address] [address] [place] [address] XR Chest PA Lateral 2 Views Social History Tobacco Use Types Packs/Day Years Used Date Smoking Tobacco: Never Smokeless Tobacco: Never Alcohol Use Standard Drinks/Week Comments Yes 0 (1 standard drink = 0.6 oz pur e alcohol) PHQ-2 Answer Date Recorded PHQ-2 Total Score 0 09/30/2024 PHQ-9 Answer Date Recorded PHQ-9 Total Score 0 09/30/2024 AUDIT-C Answer Date Recorded Q1: How often do you have a drink containing alc ohol? Monthly or less 09/30/2024 Q2: How many drinks containi ng alcohol do you have on a typical day when you are drinking? 1 or 2 09/30/2024 Q3: How often do you have si x or more drinks on one occasion? Never 09/30/2024 Sex and Gender Information Value Date Recorded Sex Assigned at Not on file Legal Sex Male 8:24 AM SALES REPRESENTATIVE ADDING MACHINES Gender Identity Not on file Sexual Orientation Not on file documented as of this encounter Functional Status documented as of this encounter Plan of Treatment Not on file documented as of this encounter Visit Diagnoses Not on filedocumented in this encounter Care Teams Proposal Review Analyst Relationship Specialty Start Date End Date Debra Pastrana DO [address] [facility] [address] [place] [address] PCP - General Family Medicine 02/29/24 [place] [address] [place] [address] Urology 08/06/24 Mariola Rajan NP [address] [facility] [address] [place] [address] [place] [address] Nurse Practitioner Gastroenterology 09/30/24 Pop Wilburn MD [address] [facility] [address] [place] [place] [address] Consulting Physician Sleep Medicine 09/30/24 Denny Fernando MD [address] [place] [address] Consulting Physician Otolaryngology 09/30/24 Micha Ashley MD [address] [facility] [address] [address] Consulting Physician Cardiology 12/20/24 documented as of this encounter
--- OUTSIDE RECORDS SUMMARY | 2025-01-04 20:34 | XMS_ITS | Clinical Summary ---
Author Organization [facility] [place] [facility] [place] [address] Address [facility] [place] [address] Care Team Providers Care Inverter And Clipper Name Role Phone Debra Pastrana Primary Care Provider [phone] Anna Lopez MD Unavailable Mariola Rajan NP Unavailable [phone] Pop Wilburn MD Unavailable Denny Fernando MD Unavailable [phone] Micha Ashley MD Unavailable [phone] Allergies Active Allergy Reactions Criticality Noted Date Comments Amlodipine Edema Medium 09/30/2024 BLE Atenolol Swelling,Angioedema High 08/02/2018 Buspirone Other (See comments) Low 02/29/2024 reports that it gives him a buzzy feeling like he's been drinking Latex Anaphylaxis High 03/23/2022 Medications ascorbic acid (VITAMIN C) 1,000 mg tablet 1 tablet (1,000 mg total) 03/04/19 23 Active aspirin 81 mg enteric coated tabletIndicatio ns:Primary hypertension Take 1 tablet (81 mg total) by mouth daily 90 tablet 3 02/28/19 25 026 Active tamsulosin (FLOMAX) 0.4 mg extended release capsule 1 capsule (0.4 mg total) daily Active MAGNESIUM ORAL Take by mouth A ctive escitalopram (LEXAPRO) 5 mg tabletIndicatio ns:Mild episode of recurrent major depressive disorder,Genera lized anxiety disorder Take 1 tablet (5 mg total) by mouth nightly 90 tablet 3 06/25/19 25 026 Active tadalafiL (CIALIS) 5 mg tablet 07/10/19 25 Active testosterone cypionate (DEPO-TESTOTERO NE) 200 mg/mL injection Inject 0.5 mL (100 mg total) into the muscle as instructed once a week 07/30/19 25 Active valsartan-hydro chlorothiazide (DIOVAN-HCT) 320-12.5 mg per tabletIndicatio ns:Primary hypertension Take 1 tablet by mouth daily 90 tablet 4 10/01/19 25 026 Active cyclobenzaprine (FLEXERIL) 10 mg tabletIndicatio ns:Chronic bilateral low back pain without sciatica TAKE 1 TABLET BY MOUTH NIGHTLY NEEDED FOR MUSCLE SPASM 30 tablet 1 11/12/19 25 Active vitamin B complex capsule Take 1 capsule by mouth daily Active hydrALAZINE (APRESOLINE) 50 mg tablet TAKE 1 TABLET BY MOUTH THREE TIMES DAILY 90 tablet 12/19/19 25 Active potassium chloride ER (KLOR-CON) 20 mEq CR tabletIndicatio ns:Hypokalemia Take 1 tablet (20 mEq total) by mouth 2 (two) times a day 180 tablet 3 12/31/19 25 026 Active potassium chloride ER (KLOR-CON) 10 mEq CR tabletIndicatio ns:Hypokalemia Take 1 tablet/capsul e (10 mEq total) by mouth 2 (two) times a day 60 tablet 5 06/25/19 25 025 Discontinued(R eorder) methylPREDNISol one (MEDROL DOSEPACK) 4 mg Dosepack Take as directed on package 1 packet 10/04/19 25 025 Discontinued(T herapy completed) hydrALAZINE (APRESOLINE) 50 mg tabletIndicatio ns:hypertension Take 1 tablet (50 mg total) by mouth 3 (three) times a day 90 tablet 1 10/29/19 25 025 Discontinued amoxicillin-cla vulanate (AUGMENTIN) 875-125 mg per tablet Take 1 tablet by mouth 2 (two) times a day for 10 days 20 tablet 12/05/19 25 025 benzonatate (TESSALON) 100 mg capsuleIndicati ons:Cough Take 1 capsule (100 mg total) by mouth 3 (three) times a day as needed for cough 21 capsule 12/05/19 25 025 Discontinued albuterol HFA (PROVENTIL HFA,VENTOLIN HFA,PROAIR HFA) 90 mcg/actuation inhalerIndicati ons:Acute cough Inhale 2 puffs every 6 (six) hours as needed for wheezing or shortness of breath 1 each 12/07/19 25 025 Discontinued potassium chloride ER (KLOR-CON) 10 mEq CR tabletIndicatio ns:Hypokalemia Take 1 tablet/capsul e (10 mEq total) by mouth 2 (two) times a day 180 tablet/caps ule 3 12/24/19 025 Discontinued(A lternate therapy) Active Problems Problem Noted Date Diagnosed Date Tremor of right hand 12/30/2024 Dysfunction of both eustachian tubes 10/03/2024 Assessment & Plan (10/03/2024 3:36 PM CDT): He does show some evidence of pressure on his tympanograms today. I think that his ears are going to continue to equilibrate. I think a steroid pack would probably speed this up and he wanted to go ahead and do that. He can follow up if he has any further problems. Sensorineural hearing loss (SNHL) of both ears 0 10/03/2024 Assessment & Plan (10/03/2024 3:36 PM CDT): He has some high-frequency bilateral sensorineural hearing loss. 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 He notes that it is pretty important to have good hearing when he is in that environment. He might benefit from hearing aids and we talked about that. He is going to consider that option. He can call us if we can help. Peyronie disease 09/30/2024 MELLISSA (obstructive sleep apnea) 08/19/2024 Class 1 obesity due to exces s calories with serious comorbidity and body mass index (BMI) of 30.0 to 30.9 in adult 08/19/2024 Cervical radicular pain 08/06/2024 Assessment & Plan (09/30/2024 10:53 AM CDT): Will place order for MRI of cervical spine once I receive notes from physical therapist. Most likely will refer patient to pain management for his chronic neck pain, but, chronic pain management requires an updated MRI. DDD (degenerative disc disease), cervical 2024 Daytime [...] understands. Elevated LFTs 03/27/2024 Assessment & Plan (12/30/2024 9:19 PM COUNTER HELP): Asx. Labs ordered, will follow. Assessment & Plan (07/15/2024 9:58 AM CDT): Was noted to have mildly elevated liver enzymes, on 06/24/2024 AST 55/ALT 69 -We will order blood work as well as ultrasound for further evaluation. -Educated on importance of low-fat diet as well as avoiding alcohol -Recommended weight loss Degeneration of intervertebr al disc of lumbar region with discogenic back pain 03/25/2024 Hypokalemia 03/25/2024 Assessment & Plan (12/30/2024 9:19 PM COUNTER HELP): Asx. Labs ordered, will follow.continue Potassium supplement. Hyperpigmented skin lesion 03/25/2024 Tinnitus of both [...] for it. There are a lot of obbz-btq-gsmgblh remedies which generally do not help and [...] Generalized anxiety disorder 02/29/2024 Assessment & Plan (12/30/2024 9:16 PM COUNTER HELP): Stable. Cont. Current prescription medications, escitalopram. Assessment & Plan (02/29/2024 10:43 AM COUNTER HELP): Re-start medication, escitalopram. Do not re-start Buspirone due to side- effects. Labs ordered, consider therapy. Mild episode of recurrent major depressive disor izabel 02/29/2024 Assessment & Plan (12/30/2024 9:16 PM COUNTER HELP): Clinically improved, continue current prescription medications, escitalopram. Assessment & Plan (02/29/2024 10:42 AM COUNTER HELP): Re-start medications, will follow. Labs ordered. Consider therapy. Drug-induced erectile dysfunction 02/29/2024 Assessment & Plan (02/29/2024 10:43 AM COUNTER HELP): Most likely secondary to anti-hypertensive medications. Referred to urology for further eval/mgmt. Primary hypertension 02/29/2024 Assessment & Plan (12/30/2024 9:18 PM COUNTER HELP): Elevated, continue valsartan-HCT. Will follow. BP goal < 140/90. Also, continue hydralazine, prescribed by cardiology. Assessment & Plan (02/29/2024 10:44 AM COUNTER HELP): Uncontrolled, low sodium diet recommended. Continue current medications. Monitor BPS at home, record them, quick follow up recommended. Chronic bilateral low back pain without sciatica 02/29/2024 Assessment & Plan (02/29/2024 10:45 AM COUNTER HELP): XR of lumbar spine, will follow. Consider PT. Gastroesophageal reflux disease 08/15/2022 Overview (09/12/2024): Removal Reason: resolved Asplenia 03/23/2022 Resolved Problems Problem Noted Date Diagnosed Date Resolved Date Otalgia of both ears 09/30/2024 025 Assessment & Plan (09/30/2024 10:48 AM CDT): No signs of infection on either ear. Patient previously referred to ENT, encouraged patient to reach back out to ENT if he has continued pain in ear. Nonsmoker 08/19/2024 12/23/2024 Abdominal bloating 02/29/2024 5 Assessment & Plan (07/15/2024 10:01 AM CDT): [...] May 2020 was normal. -Recommended starting an cegd-wtx-nzejteh probiotic like align or [employer]. -Also discussed dlss-bzf-jptinxw ib letitia -If complaints continue discussed possible SIBO testing Assessment & Plan (02/29/2024 10:45 AM COUNTER HELP): Recommended screening colonoscopy. May also need GI f/u in office. Increased urinary frequency 02/29/2024 12/23/2024 Assessment & Plan (02/29/2024 10:45 AM COUNTER HELP): Labs ordered, referred to urology for further eval/mgmt. Hypokalemia 06/03/2022 12/23/2024 Primary erectile dysfunction 09/10/2021 12/23/2024 Generalized anxiety disorder 12/23/2020 12/23/2024 Numbness 05/20/2019 12/23/2024 Essential hypertension 05/20/201912/23 Encounters Date Type Department Care Team Description 12/30/2024 11:30 AM COUNTER HELP Office Visit [facility] [address] [facility] [address] [place] [phone] Rafal Contreras PA DDD (degenerative disc disease), cervical (Primary Dx); Cervical radicular pain; Degeneration of intervertebral disc of lumbar region with discogenic back pain; Tremor of right hand; Complete lesion at C2 level of cervical spinal cord, initial encounter ([facility]) [S14.112A] 12/30/2024 Results Follow-Up [facility] Medical [facility] [place] [address] [facility] [address] [place] [address] Debra Pastrana DO Comprehensive metabolic panel, eGFR 12/27/2024 2:50 PM COUNTER HELP - 12/27/2024 11:59 PM COUNTER HELP Hospital Encounter [facility] Cardiac Testing [address] [place] [id number] Uncontrolled hypertension Discharge Disposition: Discharge to home or self care 12/24/2024 11:55 AM COUNTER HELP Lab [facility] Office [address] [place] [address] [address] [place] [address] Hypokalemia; Elevated LFTs 12/23/2024 3:00 PM COUNTER HELP Office Visit [facility] [place] [address] [facility] [address] [place] [address] Debra Pastrana DO Primary hypertension (Primary Dx); Mild episode of recurrent major depressive disorder; Generalized anxiety disorder; Hypokalemia; Elevated LFTs; Influenza vaccine refused 12/06/2024 12:03 PM CDT - 12/06/2024 11:59 PM CDT Hospital Encounter [address] [address] Acute cough Discharge Disposition: Discharge to home or self care 12/06/2024 11:45 AM CDT Office Visit [facility] [address] [address] Cammy Anthony NP Acute cough (Primary Dx); Strep throat 12/06/2024 Telephone [facility] [address] [facility] [address] [place] [address] Lizzy Weathers RN 12/06/2024 Results Follow-Up [facility] at [address] [address] Cammy Anthony NP XR Chest PA Lateral 2 Views 12/06/2024 Results Follow-Up [facility] [place] [address] [facility] [address] [place] [address] Debra Pastrana, MRI Cervical Spine WO Contrast, MRI Lumbar Spine WO Contrast 12/06/2024 Telephone [facility] [place] [address] [facility] [address] [place] [address] Debra Pastrana DO Symptom Based Call 12/04/2024 4:00 PM CDT Office Visit [facility] [address] [address] Maggi Newberry PA Strep throat (Primary Dx); Hypertension, essential 11/21/2024 2:39 PM CDT - 11/21/2024 11:59 PM CDT Hospital Encounter [address] [address] Chronic bilateral low back pain without sciatica; Degeneration of intervertebral disc of lumbar region with discogenic back pain Discharge Disposition: Discharge to home or self care 11/21/2024 2:39 PM CDT - 11/21/2024 11:59 PM CDT Hospital Encounter [facility] [address] [place] [address] Cervical radicular pain; DDD (degenerative disc disease), cervical Discharge Disposition: Discharge to home or self care 10/28/2024 10:30 AM CDT Office Visit [facility] [address] [facility] [address] [place] [address] Micha Ashley MD Uncontrolled hypertension (Primary Dx) from Last 3 Months Immunizations Immunization Administration Dates Next Due Influenza, Quadrivalent, Amelia l Culture-based MDCK, Antibiotic Free, Intramuscular 01/30/2020 Influenza, Quadrivalent, Spl it, Preservative Free, Intramuscular 12/24/2020,12/11/2018 Influenza, Unspecified 12/23/2024(Deferr ed: Patient Refused),02/29/2024(Deferred: Patient Refused),11/13/2022(Deferred: Patient Refused),11/13/2021 Pfizer Sars-Cov-2 Bivalent [...] Allergies Anxiety Hypertension HL (hearing loss) Nosebleed Bulging of cervical intervertebral disc Family History Medical History Relation Name Comments Hypertension Father Stroke Father Hypertension Mother Stroke Mother Relation Name Status Comments Father Mother Social History Tobacco Use Types Packs/Day Years Used Date Smoking Tobacco: Never Smokeless Tobacco: Never Tobacco Cessation:Counseling Given: Not Answered Alcohol Use Standard Drinks/Week Comments Yes 0 [...] on file Legal Sex Male 8:24 AM COUNTER HELP Gender Identity Not on file Sexual Orientation Not on file Last Filed Vital Signs Vital Sign Reading Time Taken Comments Blood Pressure 175/109 12/30/2024 11:15 AM COUNTER HELP Pulse 85 12/30/2024 11:15 AM COUNTER HELP Temperature 36.5 C (97.7 F) 12/23/2024 2:50 PM COUNTER HELP Respiratory Rate 20 12/30/2024 11:15 AM COUNTER HELP Oxygen Saturation 94% 12/30/2024 11:15 AM COUNTER HELP Inhaled Oxygen Concentration - - Weight 99.6 kg (219 lb 9.6 oz) 12/30/2024 11:15 AM COUNTER HELP Height 180.3 cm (5' 11) 12/30/2024 11:15 AM COUNTER HELP Body Mass Index 30.63 12/30/2024 11:15 AM COUNTER HELP Plan of Treatment Health Maintenance Due Date Last Done Comments Covid-19 Vaccine ( season) 2024 11/14/2021, 10/17/2021, 11/14/2020, Additional history exists Pneumococcal vaccine <65 (3 of 3 - PCV) 02/13/2025 12/12/2018, 12/01/2018 Postponed from 12/13/2019 (Patient declined, but will receive in the future) Zoster Vaccine (1 of 2) 02/28/2025 Post poned from 2011 (Patient declined, but will receive in the future) Regular Well Visit/Exam 18-64 06/24/2025 06/24/2024 Influenza Vaccine (#1) 2025 2, 12/24/2020, 01/30/2020, Additional history exists Postponed from 10/14/2024 (Patient declined, but will receive in the future) Depression Screening 12/23/2025 12/23/2024, 12/23/2024, 09/30/2024, Additional history exists Prostate Cancer Screening-PSA 02/28/2026 02/29/2024 Colon Cancer Screening-Colonoscopy 06/12/2030 06/12/2020 DTaP/Tdap/Td Vaccine (3 - Td or Tdap) 02/26/2031 02/26/2021, 02/13/2010 Hepatitis B Screening Completed 07/15/2024, 025 Hepatitis C Screening Completed 07/15/2024, 025 Meningococcal B Vaccine Discontinued Procedures Procedure Name Priority Date/Time Associated Diagnosis Comments TRANSTHORACIC ECHO (TTE) COMPLETE W DOPPLER/CF WO CONTRAST Routine 12/27/2024 3:30 PM COUNTER HELP Uncontrolled hypertension EGFR Routine 12/24/2024 12:01 PM COUNTER HELP Hypokalemia Elevated LFTs COMPREHENSIVE METABOLIC PANEL Routine 12/24/2024 12:01 PM COUNTER HELP Hypokalemia Elevated LFTs XR CHEST PA LATERAL 2 VIEWS Schedule PHILIP, Read PHILIP (Appt Today, Awaiting Results) 12/06/2024 12:12 PM CDT Acute cough POC INFLUENZA A/B, COVID-19 ANTIGEN Routine 12/04/2024 4:55 PM CDT Strep throat POCT RAPID STREP Routine 12/04/2024 4:27 PM CDT Strep throat MRI LUMBAR SPINE WO CONTRAST Schedule Routine, Read Routine (OP Routine) 11/21/2024 4:21 PM CDT Chronic bilateral low back pain without sciatica Degeneration of intervertebral disc of lumbar region with discogenic back pain MRI CERVICAL SPINE WO CONTRAST Schedule Routine, Read Routine (OP Routine) 11/21/2024 3:50 PM CDT Cervical radicular pain DDD (degenerative disc disease), cervical HEPATITIS PANEL, ACUTE Routine 07/15/2024 10:15 AM CDT Elevated LFTs PSA SCREEN Routine 02/29/2024 11:05 AM COUNTER HELP Screening PSA (prostate specific antigen) COLONOSCOPY Routine 06/12/2020 3:37 PM CDT from Last 3 Months or Most Recently Relevant to Health Maintenance Results * TRANSTHORACIC ECHO (TTE) COMPLETE W DOPPLER/CF WO CONTRAST (12/27/2024 3:30 PM COUNTER HELP) EF Mod BP 56 % CONS SCIMAGE Anatomical Region Laterality Modality Ultrasound 12/27/2024 3:08 PM COUNTER HELP Narrative 12/29/2024 7:21 PM COUNTER HELP Transthoracic Echocardiographic Report Patient Name: SARI CAMPBELL S : 1960 (64y 8m) Sex: M Study Date: 12/27/2024 03:08:23 PM Ht(Inch): 71 Wt(Lb): 221.01 BSA: 2.2 Borough Coordinator: Lupe Diaz RDCS Order Provider: MICHA ASHLEY Heart Rate: 83 BMI: 30.82 BP: 158/92 Ref Provider: MICHA ASHLEY PROCEDURES: Echocardiographic Report: ([id number]) Transthoracic complete echo, 2D, spectral and tissue Doppler, color flow Doppler, M-mode. INDICATIONS: I10 Essential (primary) hypertension. FINDINGS: Left Ventricle: Normal left ventricular cavity size. Mild concentric left ventricular hypertrophy. Normal left ventricular systolic function. The Ejection Fraction (Eldridge's) is measured at 56 %. Diastolic Function Left ventricular diastolic parameters are consistent with Grade I diastolic dysfunction (normal LA pressure). Regional Wall Motion: There are no regional wall motion abnormalities. Right Ventricle: Normal right ventricular size. Normal right ventricular systolic function. Left Atrium: The left atrium is normal in size. Right Atrium: The right atrium is normal in size. Atrial Septum: No shunt by color Doppler. Mitral Valve: Normal mitral valve leaflet structure. No mitral regurgitation seen. No mitral valve stenosis. Aortic Valve: Trileaflet aortic valve. No aortic regurgitation seen. No aortic valve stenosis. The mean transaortic gradient is 5 mmHg. Tricuspid Valve: The tricuspid valve demonstrates normal leaflet structure. There is trace tricuspid regurgitation. The estimated right ventricular systolic pressure is 32 mmHg. No tricuspid valve stenosis. Pulmonic Valve: No evidence of pulmonic regurgitation. Pericardium: Normal pericardium without evidence of pericardial effusion. Aorta: Normal aortic root. The aortic sinus is normal in size. The ascending aorta is normal in size. IVC: IVC is normal in size. The estimated RA pressure is 3 mmHg. CONCLUSIONS: 1. Normal left ventricular cavity size. Mild concentric left ventricular hypertrophy. Normal left ventricular systolic function. The Ejection Fraction (Eldridge's) is measured at 56 %. Diastolic Function Left ventricular diastolic parameters are consistent with Grade I diastolic dysfunction (normal LA pressure). 2. Normal right ventricular size. Normal right ventricular systolic function. 3. Normal mitral valve leaflet structure. No mitral regurgitation seen. No mitral valve stenosis. 4. Trileaflet aortic valve. No aortic regurgitation seen. No aortic valve stenosis. The mean transaortic gradient is 5 mmHg. 5. The tricuspid valve demonstrates normal leaflet structure. There is trace tricuspid regurgitation. The estimated right ventricular systolic pressure is 32 mmHg. No tricuspid valve stenosis. MEASUREMENTS: 2D/MM Value Range Doppler Value LVIDd 2D 5.29 cm [ 3.50 - 5.70 ] AV Peak Dimas 1.51 m/s LVIDs 2D 3.47 cm [ 3.10 - 4.60 ] AV Peak PG 9.12 mmHg IVSd 2D 1.21 cm [ 0.60 - 1.20 ] AV Mean PG 5.00 mmHg LVPWd 2D 1.12 cm [ 0.60 - 1.10 ] AV VTI 26.80 cm LV Thickness Ratio 1.08 LVOT Peak Dimas 1.58 m/s LV Mass 2D 250.29 g LVOT Peak PG 9.99 mmHg LV Mass Index 2D 113.75 g/m2 LVOT Mean PG 5.00 mmHg RWT 0.42 LVOT VTI 23.60 cm EDV Mod BP 113.00 ml [ 62.00 - 150.00 ] LVOT Diam 2.30 cm LV EDV Index 51.36 ml/m2 SV LVOT 98.00 cm3 ESV Mod BP 50.00 ml [ 21.00 - 61.00 ] FATOUMATA VTI 3.66 cm2 EF Mod BP 56 % [ 52 - 72 ] FATOUMATA Vmax 4.35 cm2 LA Dimension 2D 4.50 cm [ 1.90 - 4.00 ] LVOT/AV VTI 0.88 - Dimensionless index (DVI) LA Length 2C 5.74 cm MV E Peak Dimas 0.71 m/s LA Length 4C 5.22 cm MV A Peak Dimas 0.88 m/s LA Volume BP 84.40 ml MV E/A 0.80 ratio LA Volume Index 38.36 ml/m2 [ 16.00 - 34.00 ] MV Decel Time 193.00 msec TAPSE 2.67 cm [ 1.71 - 5.00 ] Med E` Dimas 0.06 m/s RA Volume 67.60 ml Lat E` Dimas 0.06 m/s RA Volume Index 30.72 ml/m2 Average E/E` 11.83 AoR Diam 2D 3.40 cm [ 2.00 - 3.70 ] TV Peak Dimas 0.57 m/s Ao Root Index 1.55 cm/m2 [ 1.00 - 2.00 ] TV Peak PG 1.30 mmHg RV S` 0.20 m/s TR Peak Dimas 2.69 m/s TR Peak PG 28.9 mmHg RA Pressure 3.00 mmHg RVSP 31.90 mmHg PV Peak Dimas 0.95 m/s PV Peak PG 3.61 mmHg PI ED Dimas 111.00 cm/sec - ATTESTATION: I have reviewed and interpreted the pertinent images and measurements of this study. I attest to the conclusions in the final report that is provided above. DISCLAIMER: The study images and the final report will be retained in the patient chart by the [facility] for the legally required time period. This chart constitutes the legal record of any testing performed. Electronically Signed By: Charles Carbajal MD 12/29/2024 7:20:59 PM COUNTER HELP Procedure Note Charles Carbajal MD - 12/29/2024 Transthoracic Echocardiographic Report Patient Name: SARI CAMPBELL S : 1960 (64y 8m) Sex: M Study Date: 12/27/2024 03:08:23 PM Ht(Inch): 71 Wt(Lb): 221.01 BSA: 2.2 Borough Coordinator: Lupe Diaz RDCS Order Provider: MICHA ASHLEY Heart Rate: 83 BMI: 30.82 BP: 158/92 Ref Provider: MICHA ASHLEY PROCEDURES: Echocardiographic Report: ([id number]) Transthoracic complete echo, 2D,spectral and tissue Doppler, color flow Doppler, M-mode. INDICATIONS: I10 Essential (primary) hypertension. FINDINGS: Left Ventricle: Normal left ventricular cavity size. Mild concentric leftventricular hypertrophy. Normal left ventricular systolic function. The EjectionFraction (Eldridge's) is measured at 56 %. Diastolic Function Left ventricular diastolicparameters are consistent with Grade I diastolic dysfunction (normal LA pressure). Regional Wall Motion: There are no regional wall motion abnormalities. Right Ventricle: Normal right ventricular size. Normal right ventricularsystolic function. Left Atrium: The left atrium is normal in size. Right Atrium: The right atrium is normal in size. Atrial Septum: No shunt by color Doppler. Mitral Valve: Normal mitral valve leaflet structure. No mitralregurgitation seen. No mitral valve stenosis. Aortic Valve: Trileaflet aortic valve. No aortic regurgitation seen. Noaortic valve stenosis. The mean transaortic gradient is 5 mmHg. Tricuspid Valve: The tricuspid valve demonstrates normal leafletstructure. There is trace tricuspid regurgitation. The estimated right ventricular systolicpressure is 32 mmHg. No tricuspid valve stenosis. Pulmonic Valve: No evidence of pulmonic regurgitation. Pericardium: Normal pericardium without evidence of pericardialeffusion. Aorta: Normal aortic root. The aortic sinus is normal in size. Theascending aorta is normal in size. IVC: IVC is normal in size. The estimated RA pressure is 3 mmHg. CONCLUSIONS: 1. Normal left ventricular cavity size. Mild concentric left ventricularhypertrophy. Normal left ventricular systolic function. The Ejection Fraction(Eldridge's) is measured at 56 %. Diastolic Function Left ventricular diastolic parameters areconsistent with Grade I diastolic dysfunction (normal LA pressure). 2. Normal right ventricular size. Normal right ventricular systolicfunction. 3. Normal mitral valve leaflet structure. No mitral regurgitation seen. Nomitral valve stenosis. 4. Trileaflet aortic valve. No aortic regurgitation seen. No aortic valvestenosis. The mean transaortic gradient is 5 mmHg. 5. The tricuspid valve demonstrates normal leaflet structure. There istrace tricuspid regurgitation. The estimated right ventricular systolic pressure is 32mmHg. No tricuspid valve stenosis. MEASUREMENTS: 2D/MM Value Range DopplerValue LVIDd 2D 5.29 cm [ 3.50 - 5.70 ] AV Peak Vel1.51 m/s LVIDs 2D 3.47 cm [ 3.10 - 4.60 ] AV Peak PG9.12 mmHg IVSd 2D 1.21 cm [ 0.60 - 1.20 ] AV Mean PG5.00 mmHg LVPWd 2D 1.12 cm [ 0.60 - 1.10 ] AV VTI26.80 cm LV Thickness Ratio 1.08 LVOT Peak Vel1.58 m/s LV Mass 2D 250.29 g LVOT Peak PG9.99 mmHg LV Mass Index 2D 113.75 g/m2 LVOT Mean PG5.00 mmHg RWT 0.42 LVOT VTI23.60 cm EDV Mod BP 113.00 ml [ 62.00 - 150.00 ] LVOT Diam2.30 cm LV EDV Index 51.36 ml/m2 SV LVOT98.00 cm3 ESV Mod BP 50.00 ml [ 21.00 - 61.00 ] FATOUMATA VTI3.66 cm2 EF Mod BP 56 % [ 52 - 72 ] FATOUMATA Vmax4.35 cm2 LA Dimension 2D 4.50 cm [ 1.90 - 4.00 ] LVOT/AV VTI0.88 - Dimensionless index (DVI) LA Length 2C 5.74 cm MV E Peak Vel0.71 m/s LA Length 4C 5.22 cm MV A Peak Vel0.88 m/s LA Volume BP 84.40 ml MV E/A0.80 ratio LA Volume Index 38.36 ml/m2 [ 16.00 - 34.00 ] MV Decel Dznk193.00 msec TAPSE 2.67 cm [ 1.71 - 5.00 ] Med E` Vel0.06 m/s RA Volume 67.60 ml Lat E` Vel0.06 m/s RA Volume Index 30.72 ml/m2 Average E/E`11.83 AoR Diam 2D 3.40 cm [ 2.00 - 3.70 ] TV Peak Vel0.57 m/s Ao Root Index 1.55 cm/m2 [ 1.00 - 2.00 ] TV Peak PG1.30 mmHg RV S` 0.20 m/s TR Peak Dimas 2.69 m/s TR Peak PG 28.9 mmHg RA Pressure 3.00 mmHg RVSP 31.90 mmHg PV Peak Dimas 0.95 m/s PV Peak PG 3.61 mmHg PI ED Dimas 111.00 cm/sec - ATTESTATION: I have reviewed and interpreted the pertinent images and measurements ofthis study. I attest to the conclusions in the final report that is provided above. DISCLAIMER: The study images and the final report will be retained in the patientchart by the [facility] for the legally required time period. This chart constitutesthe legal record of any testing performed. Electronically Signed By: Charles Carbajal MD 12/29/2024 7:20:59 PM COUNTER HELP us Micha Ashley MD CV ECHO PROCEDURES Final Result * eGFR (12/24/2024 12:01 PM COUNTER HELP) eGFR 72 >=60 mL/min/1. 73 m2 Comment: Interpretive Data [...] interpretive data was last reviewed 2020. Blood 12/24/2024 12:0 1 PM COUNTER HELP 12/24/2024 12:20 PM COUNTER HELP Debra Pastrana DO LAB BLOOD ORDERABLES Final Result [facility] [address] [facility] Department [place] [address] * (ABNORMAL) Comprehensive metabolic panel (12/24/2024 12:01 PM COUNTER HELP) Sodium 145 135 - 145 mmol/L Potassium, pl 3.2(L) 3.3 - 4.9 mmol/L [facility] Chloride 104 97 - 110 mmol/L [facility] CO2 32 22 - 32 mmol/L [facility] Anion gap 9 2 - 15 mmol/L [facility] BUN 16 6 - 25 mg/dL [facility] Creatinine 1.15 0.80 - 1.30 mg/dL [facility] Glucose 106 70 - 199 mg/dL [facility] Comment: Interpretive Data Fasting glucose [...] classification and Diagnosis of Diabetes Diabetes Care 202; 46: S19-S40. Current interpretive data was last revised 2022. Calcium 9.7 8.5 - 10.3 mg/dL [facility] Bilirubin, total 0.4 0.1 - 1.2 mg/dL [facility] Protein, pl 7.3 6.5 - 8.5 g/dL [facility] Albumin 4.1 3.5 - 5.0 g/dL [facility] Alk phos 56 40 - 130 Units/L [facility] ALT 30 7 - 55 Units/L [facility] AST 32 10 - 50 Units/L [facility] Blood 12/24/2024 12:0 1 PM COUNTER HELP 12/24/2024 12:20 PM COUNTER HELP us Debra Pastrana DO LAB BLOOD ORDERABLES Final Result Performing Organization Address City/State/[facility] Co de Phone Number CASSANDRA [address] [facility] Department [place] [address] * XR Chest PA Lateral 2 Views (12/06/2024 12:12 PM CDT) Anatomical Region Laterality Modality Body, Chest N/A Computed Radiogr aphy 12/06/2024 12:2 3 PM CDT Impressions 12/06/2024 12:23 PM CDT No acute cardiopulmonary abnormality. Electronically signed by: Bobby Floyd MD Narrative 12/06/2024 12:23 PM CDT EXAMINATION: XR CHEST PA LATERAL 2 VIEWS HISTORY: cough TECHNIQUE: Frontal and lateral views of the chest. COMPARISON: 11/30/2005 FINDINGS: Cardiac silhouette and mediastinal contours are normal. No focal consolidation. No pleural effusion or pneumothorax. Procedure Note Bobby Floyd MD - 12/06/2024 EXAMINATION: XR CHEST PA LATERAL 2 VIEWS HISTORY: cough TECHNIQUE: Frontal and lateral views of the chest. COMPARISON: 11/30/2005 FINDINGS: Cardiac silhouette and mediastinal contours are normal. No focal consolidation. No pleural effusion or pneumothorax. IMPRESSION: No acute cardiopulmonary abnormality. Electronically signed by: Bobby Floyd MD Cammy Anthony CHAIN TENDER IMG XR PROCEDURES Final Result * POC Influenza A/B, COVID-19 antigen (12/04/2024 4:55 PM CDT) Influenza A Ag, POC Negative Negative [facility] Influenza B Ag, POC Negative Negative [facility] [place] [facility] COVID-19 Ag POC Presumptive Negative Presumptive Negative, Invalid [facility] [place] [facility] Nasal 12/04/2024 4:55 PM CDT Maggi DELGADO POINT OF CARE TEST ORDER LADI Final Result Performing Organization Address City/State/[facility] Co de Phone Number [facility] [address] [place] [address] * (ABNORMAL) POCT rapid strep A (12/04/2024 4:27 PM CDT) Rapid Strep A, POC Positive(A ) Negative Swab 12/04/2024 4:27 PM CDT Maggi DELGADO POINT OF CARE TEST ORDER LADI Final Result * MRI Lumbar Spine WO Contrast (11/21/2024 4:21 PM CDT) Anatomical Region Laterality Modality Spine N/A Magnetic Resonan ce 11/21/2024 8:45 PM CDT Narrative 11/21/2024 8:50 PM CDT EXAM DESCRIPTION: MRI LUMBAR SPINE WO CONTRAST REASON FOR STUDY: Low back pain, spondyloarthropathy suspected, xray done Chronic LBP, worse x 1.5 years, pain is across belt line, denies radiculopathy, no sx or injury TECHNIQUE: Sagittal and Axial imaging includes T1, T2, STIR sequences. COMPARISON: Lumbar plain films from 02/29/2024. FINDINGS: SEGMENTATION: No transitional anatomy. The lowest well-developed disc space is labeled L5-S1. ALIGNMENT: Mild degenerative retrolisthesis of L2 on L3. Alignment otherwise is normal. VERTEBRAE: Vertebral body height well-maintained. Normal appearing marrow. DISC HEIGHT: Mild multilevel disc degeneration as described below. HARDWARE: None in the spine. CORD/CAUDA: Normal in size and signal intensity. Conus at the appropriate level. LOWER THORACIC: Incompletely imaged. No stenosis seen. INDIVIDUAL DISC LEVELS: L1-2: Mild diffuse annular bulge with shallow right subarticular protrusion. Mild spinal stenosis. No significant neural foraminal narrowing. L2-3: Mild diffuse annular bulge with left subarticular disc protrusion. There is mild spinal stenosis with asymmetric left lateral recess stenosis. Asymmetric protrusion of disc material into the neural foramina bilaterally contacts exiting nerve roots. No significant foraminal narrowing.. L3-4: Mild bilateral facet arthritis with mild thickening of posterior ligaments and diffuse annular bulge. Mild spinal stenosis. Mild bilateral foraminal narrowing. L4-5: Mild diffuse annular bulge with bilateral facet arthritis and thickening of posterior ligaments. There is moderate spinal stenosis. Mild bilateral foraminal narrowing. L5-S1: Bilateral facet arthritis. Minimal annular bulge. No significant central canal stenosis or neural foraminal stenosis. SACRUM: Visualized upper sacrum intact. VISUALIZED UPPER ABDOMEN: Small bilateral T2 hyperintense renal cystic areas. No followup imaging recommended based on radiological findings. OTHER: No other significant findings. IMPRESSION: Mild multilevel disc degeneration and facet arthritis. Changes are most evident at L2-3 with left subarticular disc protrusion and bilateral foraminal disc protrusions contacting exiting L2 nerve roots. Moderate spinal stenosis and mild bilateral foraminal narrowing at L4-5. No acute osseous abnormality. THIS IS AN ELECTRONICALLY VERIFIED FINAL REPORT 11/21/2024 8:50 PM - Electronically signed by Lynn Velasquez M.D. T: Report ID: [id number] Reading Location: [id number] Procedure Note Maeve Velasquez MD - 11/21/2024 EXAM DESCRIPTION: MRI LUMBAR SPINE WO CONTRAST REASON FOR STUDY: Low back pain, spondyloarthropathy suspected, xraydone Chronic LBP, worse x 1.5 years, pain is across belt line, denies radiculopathy, no sx or injury TECHNIQUE: Sagittal and Axial imaging includes T1, T2, STIR sequences. COMPARISON: Lumbar plain films from 02/29/2024. FINDINGS: SEGMENTATION: No transitional anatomy. The lowestwell-developed disc space is labeled L5-S1. ALIGNMENT: Mild degenerative retrolisthesis of L2 on L3. Alignment otherwise is normal. VERTEBRAE: Vertebral body height well-maintained. Normal appearingmarrow. DISC HEIGHT: Mild multilevel disc degeneration as described below. HARDWARE: None in the spine. CORD/CAUDA: Normal in size and signal intensity. Conus at theappropriate level. LOWER THORACIC: Incompletely imaged. No stenosis seen. INDIVIDUAL DISC LEVELS: L1-2: Mild diffuse annular bulge with shallow right subarticularprotrusion. Mild spinal stenosis. No significant neural foraminal narrowing. L2-3: Mild diffuse annular bulge with left subarticular disc protrusion. There is mild spinal stenosis with asymmetric left lateral recessstenosis. Asymmetric protrusion of disc material into the neural foraminabilaterally contacts exiting nerve roots. No significant foraminal narrowing.. L3-4: Mild bilateral facet arthritis with mild thickening of posterior ligaments and diffuse annular bulge. Mild spinal stenosis. Mildbilateral foraminal narrowing. L4-5: Mild diffuse annular bulge with bilateral facet arthritis and thickening of posterior ligaments. There is moderate spinal stenosis.Mild bilateral foraminal narrowing. L5-S1: Bilateral facet arthritis. Minimal annular bulge. Nosignificant central canal stenosis or neural foraminal stenosis. SACRUM: Visualized upper sacrum intact. VISUALIZED UPPER ABDOMEN: Small bilateral T2 hyperintense renal cystic areas. No followup imaging recommended based on radiological findings. OTHER: No other significant findings. IMPRESSION: Mild multilevel disc degeneration and facet arthritis. Changesare most evident at L2-3 with left subarticular disc protrusion and bilateral foraminal disc protrusions contacting exiting L2 nerve roots. Moderatespinal stenosis and mild bilateral foraminal narrowing at L4-5. No acute osseous abnormality. THIS IS AN ELECTRONICALLY VERIFIED FINAL REPORT 11/21/2024 8:50 PM - Electronically signed by Lynn Velasquez M.D. T: Report ID: [id number] Reading Location: [place] [address] us Debra Pastrana DO IMG MRI PROCEDURES Final R esult * MRI Cervical Spine WO Contrast (11/21/2024 3:50 PM CDT) Anatomical Region Laterality Modality Spine N/A Magnetic Resonan ce 11/21/2024 8:26 PM CDT Narrative 11/21/2024 8:45 PM CDT EXAM DESCRIPTION: MRI CERVICAL SPINE WO CONTRAST REASON FOR STUDY: Neck pain, chronic Neck pain with Right radiculopathy since July, new onset left radiculopathy recently, no injury or sx TECHNIQUE: Sagittal and Axial imaging includes T1, T2, STIR and gradient echo sequences. COMPARISON: Comparison MRI cervical 03/07/2008 FINDINGS: ALIGNMENT: Normal. VERTEBRAE: Vertebral body height well-maintained. Normal appearing marrow. DISCS: There is multilevel disc degeneration with mild progression since previous. This is detailed below by level. HARDWARE: None in the spine. CORD: Redemonstrated is the right dorsal intramedullary non expansile T2 hyperintensity at the C2-3 disc level, grossly stable from multiple prior studies. No other clearly defined intramedullary signal alteration is identified. INDIVIDUAL LEVELS: Cervical disc levels are as follows: C1-C2: No significant spinal stenosis. C2-C3: No significant spinal stenosis or neural foraminal stenosis. C3-C4: No significant spinal stenosis or neural foraminal stenosis. C4-C5: Broad-based posterior disc osteophytic complex with bilateral uncovertebral spurring. There is moderate spinal canal stenosis with effacement of ventral and dorsal CSF, slightly increased from previous. C5-C6: Broad-based disc bulge with uncovertebral spurring bilaterally. There is mild to moderate spinal stenosis. Bilateral foraminal narrowing, right greater than left. Findings are grossly stable from previous. C6-C7: Broad-based posterior disc osteophytic complex. There is a lateral subarticular and proximal foraminal shallow disc protrusion which is new from prior. There is increasing right and moderate left neural foraminal narrowing. Increased spinal stenosis without significant cord impingement. C7-T1: No significant spinal stenosis or neural foraminal stenosis. BASE OF BRAIN: No significant finding. UPPER THORACIC: Incompletely imaged. No significant spinal stenosis or foraminal stenosis. OTHER: No other significant finding. IMPRESSION: 1. Stable focus of non expansile T2 hyperintensity within the right dorsal cord at C2-3 compared to multiple prior studies. Findings are nonspecific but could reflect multiple sclerosis. Correlation with clinical factors and possibly MRI imaging of the brain is recommended. No new or enlarging lesion. 2. Multilevel cervical spondylosis with some progression since prior, most evident at C4-5, C5-6 and C6-7. See detail above. THIS IS AN ELECTRONICALLY VERIFIED FINAL REPORT 11/21/2024 8:45 PM - Electronically signed by Lynn Velasquez M.D. T: Report ID: [id number] Reading Location: [id number] Procedure Note Maeve Velasquez MD - 11/21/2024 EXAM DESCRIPTION: MRI CERVICAL SPINE WO CONTRAST REASON FOR STUDY: Neck pain, chronic Neck pain with Right radiculopathy since July, new onset leftradiculopathy recently, no injury or sx TECHNIQUE: Sagittal and Axial imaging includes T1, T2, STIR and gradientecho sequences. COMPARISON: Comparison MRI cervical 03/07/2008 FINDINGS: ALIGNMENT: Normal. VERTEBRAE: Vertebral body height well-maintained. Normal appearingmarrow. DISCS: There is multilevel disc degeneration with mild progression since previous. This is detailed below by level. HARDWARE: None in the spine. CORD: Redemonstrated is the right dorsal intramedullary non expansile T2 hyperintensity at the C2-3 disc level, grossly stable from multiple prior studies. No other clearly defined intramedullary signal alteration is identified. INDIVIDUAL LEVELS: Cervical disc levels are as follows: C1-C2: No significant spinal stenosis. C2-C3: No significant spinal stenosis or neural foraminal stenosis. C3-C4: No significant spinal stenosis or neural foraminal stenosis. C4-C5: Broad-based posterior disc osteophytic complex with bilateral uncovertebral spurring. There is moderate spinal canal stenosis with effacement of ventral and dorsal CSF, slightly increased from previous. C5-C6: Broad-based disc bulge with uncovertebral spurring bilaterally. There is mild to moderate spinal stenosis. Bilateral foraminal narrowing, right greater than left. Findings are grossly stable from previous. C6-C7: Broad-based posterior disc osteophytic complex. There is alateral subarticular and proximal foraminal shallow disc protrusion which is newfrom prior. There is increasing right and moderate left neural foraminal narrowing. Increased spinal stenosis without significant cordimpingement. C7-T1: No significant spinal stenosis or neural foraminal stenosis. BASE OF BRAIN: No significant finding. UPPER THORACIC: Incompletely imaged. No significant spinal stenosis or foraminal stenosis. OTHER: No other significant finding. IMPRESSION: 1. Stable focus of non expansile T2 hyperintensity within the rightdorsal cord at C2-3 compared to multiple prior studies. Findings are nonspecificbut could reflect multiple sclerosis. Correlation with clinical factors and possibly MRI imaging of the brain is recommended. No new or enlarginglesion. 2. Multilevel cervical spondylosis with some progression since prior,most evident at C4-5, C5-6 and C6-7. See detail above. THIS IS AN ELECTRONICALLY VERIFIED FINAL REPORT 11/21/2024 8:45 PM - Electronically signed by Lynn Velasquez M.D. T: Report ID: [id number] Reading Location: [place] [address] Debra Pastrana DO IMG MRI PROCEDURES Final R esult * Hepatitis panel, acute Blood (07/15/2024 10:15 AM CDT) Hep A IgM Nonreactive Nonreactive Comment: Interpretive Data: If Hep A IgM Ab is reported as Equivocal, a new sample should be drawn in two weeks for testing. Current interpretive data was last revised on 19. Hep B core IgM Nonreactive Nonreactive C[facility]ANDRA Comment: Interpretive Data If HepB Core IgM Ab is reported as Equivocal, a new sample should be drawn in two weeks for testing. Current interpretive data was last revised on 19. Hep C Ab Nonreactive Nonreactive [facility] Comment: Antibodies to HCV not [...] last revised on 2019. HepBsAg Nonreactive Nonreactive [facility]AN[facility] Blood 07/15/2024 10:1 5 AM CDT 07/15/2024 12:26 PM CDT Mariola Rajan NP LAB MICROBIOLOGY - GENERAL O RDERABLES Final Result Performing Organization Address [facility] [place] de Phone Number CASSANDRA [address] [employer] [place] [address] * PSA screen (02/29/2024 11:05 AM COUNTER HELP) PSA-Total 0.70 <=5.40 ng/mL Comment: Interpretive Data [...] revised 21. Blood 02/29/2024 11:0 5 AM COUNTER HELP 02/29/2024 12:14 PM COUNTER HELP Debra Pastrana DO LAB BLOOD ORDERABLES Final Result Performing Organization Address [facility] Co de Phone Number ROSARIO[address] [employer] [place] [address] * Colonoscopy (06/12/2020 3:37 PM CDT) Anatomical Region Laterality Modality Other Historical Provider MD ENDOSCOPY PROCEDURES Ivelisse l Result from Last 3 Months or Most Recently Relevant to Health Maintenance Insurance [facility] [id number] [facility] [id number] Care Teams Inverter And Clipper Relationship Specialty Start Date End Date Debra Pastrana DO [address] [facility] [address] [place] [address] PCP - General Family Medicine 02/29/24 [place] [address] [place] [address] Urology 08/06/24 Mariola Rajan NP [address] [facility] [address] [place] [address] Nurse Practitioner Gastroenterology 09/30/24 Pop Wilburn MD [address] [facility] [address] [place] [address] Consulting Physician Sleep Medicine 09/30/24 Denny Fernando MD [address] [place] [address] Consulting Physician Otolaryngology 09/30/24 Micha Ashley MD [address] [facility] [place] [address] Consulting Physician Cardiology 12/20/24
--- OUTSIDE RECORDS SUMMARY | 2025-01-04 20:34 | XMS_ITS | Clinical Summary ---
Author Organization [facility] Address [address] [place] [id number] Care Team Providers Care Patient Account Specialist Name Role Phone Xiomy Villegas NP Primary Care Provider [phone] Allergies Active Allergy Reactions Criticality Noted Date [...] Sex Assigned at Male 12/20/2022 8:51 AM [employer] Legal Sex Male 3:31 PM CDT Gender Identity Male 12/20/2022 8:51 AM [employer]ING [employer] Sexual Orientation Straight 12/20/2022 8: 51 AM [employer] Last Filed Vital Signs Vital Sign Reading [...] 12/13/2019 12/12/2018, 12/01/2018 LIPID TESTING 03/12/2023 03/12/2022 DEPRESSION SCREENING 12/15/2023 12/14/2022 YEARLY WELLNESS EXAM 05/08/2024 05/09/2023, 03/04/2022, 02/26/2021, Additional history exists Influenza Vaccine 09/13/2024 11/13/2021, , 01/30/2020 COVID-19 Immunization ( season) 2024 11/14/2021, 10/17/2021, 11/14/2020, Additional history exists ADULT TETANUS 02/26/2031 02/26/2021, 02/13/2010 RSV Vaccines [...] 9:35 AM EST) Cholesterol 181 <200 mg/dL [facility] Triglycerides 88 <150 mg/dL [facility] HDL Cholesterol 41 >40 mg/dL [facility] Comment: Low (undesirable, high risk): <40.0 mg/dL High (desirable, low risk); >60 mg/dL LDL Cholesterol 137(H) <100 mg/dL [facility] Comment: LDL CHOLESTEROL INTERPRETATION GUIDELINES: Below 100 mg/dL is desirable. 100-129 mg/dL is considered borderline high. 130 mg/dL and above is considered high risk. The higher the value, the greater the risk of CHD. Blood specimen (specimen) (PLASMA) 03/12/2022 9:35 AM EST 03/12/2022 9:35 AM EST Narrative [facility] - 03/12/2022 11:08 AM EST Lab Results: [facility] IN RESULTED Date/Time: 03/12/2022 11:08 Ordered by: XIOMY VILLEGAS us Xiomy Villegas SALES ASSOCIATE KEY HOLDER CHEMISTRY ORDERABLES Final Re sult [facility] [address] [place] [address], [facility] from Last 3 Months or Most Recently Relevant [place] [id number] [place] [id number] [place] [id number] [employer] Care Teams Patient Account Specialist Relationship Specialty Start Date End Date Xiomy Villegas NP [address] [address] PCP - General Nurse Practitioner-Family 06/26/21
[2025-01-04] MEDS: ONDANSETRON INJ 4 MG/2 ML VIAL IV PUSH (21:02)
[2025-01-04 21:09] LABS: Hematocrit 41.2 % (42.0-52.0); Hemoglobin 13.8 g/dL (14.0-18.0); Immature Granulocyte Percent A 0.3 % (0-0.5); Lymphocytes Absolute Auto 3.16 K/mm3 (0.9-3.2); Mean Corpuscular HGB Conc 33.5 g/dl (32-36); Mean Corpuscular Hemoglobin 27.5 pg (26-34); Mean Corpuscular Volume 82.2 fl (80-100); Nucleated Red Blood Cells Absolute Auto 0.000 K/mm3 (0.0-0.012); Nucleated Red Blood Cells Perc 0.0 % (0.0-0.2); Platelet Count Result 477 k/mm3 (150-375); Red Blood Count 5.01 M/mm3 (4.6-6.20); White Blood Count 17.1 K/mm3 (4.5-10.0)
--- NOTE | 2025-01-04 21:16 | ED_ITS ---
HPI - Abdominal Pain General Chief Complaint: Abdominal Pain Stated Complaint: abd pain Time Seen by Provider: 01/04/25 20:46 Source: patient Mode of arrival: ambulatory Limitations: no limitations History of Present Illness HPI narrative: This is a 64-year-old male that presents to the emergency department for abdominal pain, diarrhea, nausea. Ongoing since yesterday morning. Denies fevers, vomiting. Related Data Allergies Allergy/AdvReac Type Severity Reaction Status Date / Time atenolol AdvReac Swelling Verified 01/04/25 20:32 Review of Systems 2 Review of Systems: All systems reviewed & are unremarkable except as noted in HPI and below Exam 2 Narrative: GENERAL: Well-appearing, well-nourished, and in no acute distress. HEAD: Normocephalic, atraumatic. EYES: EOMI. CHEST: Clear to auscultation. No respiratory distress. No wheezes rales or rhonchi HEART: Regular rate and rhythm. No murmur heard. Normal peripheral pulses. ABDOMEN: Soft, nondistended, normal active bowel sounds. Tender to palpation throughout the abdomen, without guarding EXTREMITIES: Normal range of motion. No edema. SKIN: Warm, dry, no rash. NEURO: No focal deficits. Alert and oriented x3. PSYCH: Normal mood and affect Course Vital Signs Vital signs: Vital Signs Temperature 98.5 F 01/04/25 20:33 Pulse Rate 106 H 01/04/25 20:33 Respiratory Rate 24 H 01/04/25 20:33 Blood Pressure 185/102 H 01/04/25 20:33 Pulse Oximetry 96 01/04/25 20:33 Oxygen Delivery Room Air 01/04/25 20:33 Temperature 98.5 F 01/04/25 20:33 Pulse Rate 106 H 01/04/25 20:33 Respiratory Rate 24 H 01/04/25 20:33 Blood Pressure 185/102 H 01/04/25 20:33 Pulse Oximetry 96 01/04/25 20:33 Oxygen Delivery Room Air 01/04/25 20:33 MDM - Abdominal Pain MDM Narrative Medical decision making narrative: Patient presents to the emergency department for abdominal pain, diarrhea, nausea. He is afebrile and nontoxic appearing. His vitals are stable. Cbc leukocytosis to 17.1. Metabolic panel with mild hypokalemia. UA with 51-100 white blood cells, patient is not having any urinary symptoms. Will send this for culture. CT abdomen and pelvis showing enteritis. Patient updated on his workup. Reports relief after IV fluids, antiemetics. Instructed on further care. He is to follow up with PCP. Given strict return precautions Differential Diagnosis Differential diagnosis: Likely abdominal pain, gastroenteritis and small bowel obstruction Lab Data Attestation: I reviewed the patient's lab results. 01/04/25 20:56 01/04/25 20:56 Labs: Lab Results 01/04/25 01/04/25 Range/Units 20:56 20:57 WBC 17.1 H (4.5-10.0) K/mm3 RBC 5.01 (4.6-6.20) M/mm3 Hgb 13.8 L (14.0-18.0) g/dL Hct 41.2 L (42.0-52.0) % MCV 82.2 (80-100) fl MCH 27.5 (26-34) pg MCHC 33.5 (32-36) g/dl RDW 17.7 H (11.5-14.5) % Plt Count 477 H (150-375) k/mm3 MPV 11.6 H (7.4-10.4) fl Immature Gran % (Auto) 0.3 (0-0.5) % Neut % (Auto) 66.2 (45.5-73.1) % Lymph % (Auto) 18.5 (18.3-44.2) % Lipscomb % (Auto) 12.1 H (2.6-8.5) % Eos % (Auto) 2.5 (0-4.4) % Baso % (Auto) 0.4 (0.2-1.2) % Lymph # (Auto) 3.16 (0.9-3.2) K/mm3 Lipscomb # (Auto) 2.1 H (0.1-0.6) K/mm3 Eos # (Auto) 0.4 H (0-0.3) K/mm3 Baso # (Auto) 0.1 (0.0-0.1) K/mm3 Abs Immat Gran (auto) 0.05 H (0.00-0.031) K/mm3 Absolute Neuts (auto) 11.3 H (1.3-6.7) K/mm3 Absolute Nucleated RBC 0.000 (0.0-0.012) K/mm3 Nucleated RBC % 0.0 (0.0-0.2) % Sodium 140 (137-145) mmol/L Potassium 3.2 L (3.4-5.0) mmol/L Chloride 102 (98-107) mmol/L Carbon Dioxide 27 (22-30) mmol/L Anion Gap 11 (4-12) mmol/L BUN 20 (9-20) mg/dL Creatinine 1.21 (0.7-1.3) mg/dL Estim Creat Clear Calc 67 ml/min Estimated GFR > 60 (59 - ) Glucose 114 H (65-110) mg/dL Calcium 9.8 (8.4-10.2) mg/dL Magnesium 2.0 (1.6-2.3) mg/dL Total Bilirubin 0.5 (0.2-1.3) mg/dL AST 33 (17-59) U/L ALT 35 (6-50) U/L Alkaline Phosphatase 61 (38-126) U/L Total Protein 8.3 H (6.3-8.2) g/dL Albumin 4.5 (3.5-5.1) g/dL Lipase 136 (23-300) U/L Urine Color Yellow (Yellow) Urine Appearance Clear (Clear) Urine pH 7.5 (5.0-9.0) Ur Specific Henderson 1.045 H (1.001-1.035) Urine Protein Trace (Negative) mg/dL Urine Glucose (UA) Negative (Negative) mg/dL Urine Ketones Negative (Negative) mg/dL Ur Blood (Man) Negative (Negative) Urine Nitrate Negative (Negative) Urine Bilirubin Negative (Negative) Urine Urobilinogen 0.2 (<2.0) mg/dL Leukocyte Esterase Rfl 2+ H (Negative) MERCEDES/UL Urine RBC 0-2 (0-2) /hpf Urine WBC 51-100 H (0-3) /hpf Ur Squamous Epith Cells None seen (Few) /hpf Urine Bacteria None seen /hpf Urine Casts 0-2 Imaging Data Radiologist's impression: CT abdomen pelvis: Diffuse abnormal small bowel loops throughout the abdomen and pelvis with abnormal mucosal thickening involving small bowel loops in the right paracentral abdomen and central pelvis. There is mesenteric fat stranding noted. The appearance is most consistent with prominent inflammatory infectious enteritis. No definitive transition point identified to suggest a high-grade obstruction. Minimal stool burden. No pneumatosis or pneumoperitoneum. Mild free fluid in the perihepatic region and dependent pelvis is presumably reactive from small bowel process Critical Care Time Critical Care Time Critical Care Time: No Discharge Plan Discharge Clinical Impression: Enteritis, Hypokalemia Patient Disposition: Home Condition: Improved Instructions: Clear Liquid Diet (ED), Hypokalemia (ED), Enteritis (ED) Additional Instructions: Return to the ER if you experience fever, abdominal pain with nausea and vomiting, you are unable to keep down liquids or solids, or any other symptoms that are concerning to you Remain well hydrated. Clear liquid diet until your pain is improving. Ondansetron as needed for nausea. Your potassium was a little low today, continue your replacement as prescribed Follow up with primary care doctor Patient Language: South Sudanese Prescriptions: New ondansetron 4 mg tablet,disintegrating 4 mg PO Q6H PRN (Reason: nausea and vomiting) Qty: 10 0RF No Action amlodipine 5 mg tablet 5 mg PO DAILY Qty: 90 0RF cephalexin 500 mg capsule 500 mg PO Q6H 7 Days Qty: 28 0RF potassium gluconate 600 mg (99 mg) tablet 600 mg PO DAILY Qty: 10 0RF Follow-up/Referrals: UNKNOWN,DOCTOR [Primary Care Provider]
[2025-01-04 21:21] LABS: Alanine Aminotransferase 35 U/L (6-50); Albumin Level 4.5 g/dL (3.5-5.1); Alkaline Phosphatase 61 U/L (38-126); Anion Gap 11 mmol/L (4-12); Aspartate Amino Transferase 33 U/L (17-59); Bilirubin,Total 0.5 mg/dL (0.2-1.3); Blood Urea Nitrogen 20 mg/dL (9-20); Calcium 9.8 mg/dL (8.4-10.2); Carbon Dioxide 27 mmol/L (22-30); Chloride 102 mmol/L (98-107); Estimated CRCL calculation 67 ml/min; Estimated Glomerular Filt Rate > 60; Glucose 114 mg/dL (65-110); Lipase 136 U/L (23-300); Potassium 3.2 mmol/L (3.4-5.0); Sodium 140 mmol/L (137-145); Total Protein 8.3 g/dL (6.3-8.2)
[2025-01-04] MEDS: MORPHINE SULFATE (*CRX) 4 MG/ML INJ IV PUSH (21:42)
--- OUTSIDE RECORDS SUMMARY | 2025-01-04 21:42 | XMS_ITS | Clinical Summary ---
Author Organization [facility] Address [address] [place] [address] Care Team Providers Care Cigar Packing Examiner Name Role Phone Unavailable Primary Care Provider [...] patient's age to complete this topic Insurance [employer] [facility]
--- OUTSIDE RECORDS SUMMARY | 2025-01-04 21:42 | XMS_ITS | Clinical Summary ---
Author Organization [facility] [address] Address [facility] [place] [place] [address] Care Team Providers Care Phlebotomy Technologist Name Role Phone Debra Pastrana Primary Care Provider [phone] Anna Lopez MD Unavailable Mariola Rajan NP Unavailable [phone] Pop Wilburn MD Unavailable [phone] Denny Fernando MD Unavailable [phone] Micha Ashley MD Unavailable [phone] Allergies Active Allergy Reactions Criticality Noted [...] 03/27/2024 Assessment & Plan (12/30/2024 9:19 PM ENVELOPE MACHINE OPERATOR): Asx. Labs ordered, will follow. Assessment & [...] 03/25/2024 Assessment & Plan (12/30/2024 9:19 PM ENVELOPE MACHINE OPERATOR): Asx. Labs ordered, will follow.continue Potassium supplement. [...] for it. There are a lot of ayea-bxw-qmzeqvf remedies which generally do not help and [...] 02/29/2024 Assessment & Plan (12/30/2024 9:16 PM ENVELOPE MACHINE OPERATOR): Stable. Cont. Current prescription medications, escitalopram. Assessment & Plan (02/29/2024 10:43 AM ENVELOPE MACHINE OPERATOR): Re-start medication, escitalopram. Do not re-start Buspirone due to side- effects. Labs ordered, consider therapy. Mild episode of recurrent major depressive disor izabel 02/29/2024 Assessment & Plan (12/30/2024 9:16 PM ENVELOPE MACHINE OPERATOR): Clinically improved, continue current prescription medications, escitalopram. Assessment & Plan (02/29/2024 10:42 AM ENVELOPE MACHINE OPERATOR): Re-start medications, will follow. Labs ordered. Consider therapy. Drug-induced erectile dysfunction 02/29/2024 Assessment & Plan (02/29/2024 10:43 AM ENVELOPE MACHINE OPERATOR): Most likely secondary to anti-hypertensive medications. Referred to urology for further eval/mgmt. Primary hypertension 02/29/2024 Assessment & Plan (12/30/2024 9:18 PM ENVELOPE MACHINE OPERATOR): Elevated, continue valsartan-HCT. Will follow. BP goal < 140/90. Also, continue hydralazine, prescribed by cardiology. Assessment & Plan (02/29/2024 10:44 AM ENVELOPE MACHINE OPERATOR): Uncontrolled, low sodium diet recommended. Continue current medications. Monitor BPS at home, record them, quick follow up recommended. Chronic bilateral low back pain without sciatica 02/29/2024 Assessment & Plan (02/29/2024 10:45 AM ENVELOPE MACHINE OPERATOR): XR of lumbar spine, will follow. Consider [...] May 2020 was normal. -Recommended starting an sada-vrx-qrrqegc probiotic like align or Cybits. -Also discussed zaji-deq-dllpxyv ib letitia -If complaints continue discussed possible SIBO testing Assessment & Plan (02/29/2024 10:45 AM ENVELOPE MACHINE OPERATOR): Recommended screening colonoscopy. May also need GI f/u in office. Increased urinary frequency 02/29/2024 12/23/2024 Assessment & Plan (02/29/2024 10:45 AM ENVELOPE MACHINE OPERATOR): Labs ordered, referred to urology for further eval/mgmt. Hypokalemia 06/03/2022 12/23/2024 Primary erectile dysfunction 09/10/2021 12/23/2024 Generalized anxiety disorder 12/23/2020 12/23/2024 Numbness 05/20/2019 12/23/2024 Essential hypertension 05/20/201912/23 Encounters Date Type Department Care Team Description 12/30/2024 11:30 AM ENVELOPE MACHINE OPERATOR Office Visit [facility] [address] [facility] [address] [place] [phone] Rafal Contreras PA DDD (degenerative disc disease), cervical (Primary Dx); Cervical radicular pain; Degeneration of intervertebral disc of lumbar region with discogenic back pain; Tremor of right hand; Complete lesion at C2 level of cervical spinal cord, initial encounter ([facility]) [S14.112A] 12/30/2024 Results Follow-Up [facility] Medical [facility] at [place] [address] [facility] [address] [place] [address] Debra Pastrana DO Comprehensive metabolic panel, eGFR 12/27/2024 2:50 PM ENVELOPE MACHINE OPERATOR - 12/27/2024 11:59 PM ENVELOPE MACHINE OPERATOR Hospital Encounter [facility] [address] [place] [address] Uncontrolled hypertension Discharge Disposition: Discharge to home or self care 12/24/2024 11:55 AM ENVELOPE MACHINE OPERATOR Lab [facility] Medical Office [address]ld[address] [place] [address] [address] [place] [address] Hypokalemia; Elevated LFTs 12/23/2024 3:00 PM ENVELOPE MACHINE OPERATOR Office Visit [facility] Medical [facility] at [place] [address] [facility] [address] [place] [address] Debra Pastrana DO Primary hypertension (Primary Dx); Mild episode of recurrent major depressive disorder; Generalized anxiety disorder; Hypokalemia; Elevated LFTs; Influenza vaccine refused 12/06/2024 12:03 PM CDT - 12/06/2024 11:59 PM CDT Hospital Encounter [address] [address] Acute cough Discharge Disposition: Discharge to home or self care 12/06/2024 11:45 AM CDT Office Visit [facility] Care at [address] [address] Cammy Anthony NP Acute cough (Primary Dx); Strep throat 12/06/2024 Telephone [facility] [address] [facility] [address] [place] [address] Lizzy Weathers RN 12/06/2024 Results Follow-Up [facility] Care at [address] [address] Cammy Anthony NP XR Chest PA Lateral 2 Views 12/06/2024 Results Follow-Up [facility] at [place] [address] [facility] [address] [place] [phone] Debra Pastrana, MRI Cervical Spine WO Contrast, MRI Lumbar Spine WO Contrast 12/06/2024 Telephone [facility] [place] [address] [facility] [address] [place] [phone] Debra Pastrana DO Symptom Based Call 12/04/2024 4:00 PM CDT Office Visit [facility] Care at [address] [address] Maggi Newberry PA Strep throat (Primary Dx); Hypertension, essential 11/21/2024 2:39 PM CDT - 11/21/2024 11:59 PM CDT Hospital Encounter [address] [address] Chronic bilateral low back pain without sciatica; Degeneration of intervertebral disc of lumbar region with discogenic back pain Discharge Disposition: Discharge to home or self care 11/21/2024 2:39 PM CDT - 11/21/2024 11:59 PM CDT Hospital Encounter [facility] [address] [place] [address] Cervical radicular pain; DDD (degenerative disc disease), cervical Discharge Disposition: Discharge to home or self care 10/28/2024 10:30 AM CDT Office Visit [facility] Medical Group Cardiology [address] [facility] [address] [place] [phone] Micha Ashley MD Uncontrolled hypertension (Primary [...] on file Legal Sex Male 8:24 AM ENVELOPE MACHINE OPERATOR Gender Identity Not on file Sexual Orientation Not on file Last Filed Vital Signs Vital Sign Reading Time Taken Comments Blood Pressure 175/109 12/30/2024 11:15 AM ENVELOPE MACHINE OPERATOR Pulse 85 12/30/2024 11:15 AM ENVELOPE MACHINE OPERATOR Temperature 36.5 C (97.7 F) 12/23/2024 2:50 PM ENVELOPE MACHINE OPERATOR Respiratory Rate 20 12/30/2024 11:15 AM ENVELOPE MACHINE OPERATOR Oxygen Saturation 94% 12/30/2024 11:15 AM ENVELOPE MACHINE OPERATOR Inhaled Oxygen Concentration - - Weight 99.6 kg (219 lb 9.6 oz) 12/30/2024 11:15 AM ENVELOPE MACHINE OPERATOR Height 180.3 cm (5' 11) 12/30/2024 11:15 AM ENVELOPE MACHINE OPERATOR Body Mass Index 30.63 12/30/2024 11:15 AM ENVELOPE MACHINE OPERATOR Plan of Treatment Health Maintenance Due Date [...] DOPPLER/CF WO CONTRAST Routine 12/27/2024 3:30 PM ENVELOPE MACHINE OPERATOR Uncontrolled hypertension EGFR Routine 12/24/2024 12:01 PM ENVELOPE MACHINE OPERATOR Hypokalemia Elevated LFTs COMPREHENSIVE METABOLIC PANEL Routine 12/24/2024 12:01 PM ENVELOPE MACHINE OPERATOR Hypokalemia Elevated LFTs XR CHEST PA LATERAL [...] LFTs PSA SCREEN Routine 02/29/2024 11:05 AM ENVELOPE MACHINE OPERATOR Screening PSA (prostate specific antigen) COLONOSCOPY Routine 06/12/2020 3:37 PM CDT from Last 3 Months or Most Recently Relevant to Health Maintenance Results * TRANSTHORACIC ECHO (TTE) COMPLETE W DOPPLER/CF WO CONTRAST (12/27/2024 3:30 PM ENVELOPE MACHINE OPERATOR) EF Mod BP 56 % CONS SCIMAGE Anatomical Region Laterality Modality Ultrasound 12/27/2024 3:08 PM ENVELOPE MACHINE OPERATOR Narrative 12/29/2024 7:21 PM ENVELOPE MACHINE OPERATOR Transthoracic Echocardiographic Report Patient Name: SARI CAMPBELL S : 1960 (64y 8m) Sex: M Study Date: 12/27/2024 03:08:23 PM Ht(Inch): 71 Wt(Lb): 221.01 BSA: 2.2 Rod Greaser: Lupe Diaz RDCS Order Provider: MICHA ASHLEY Heart Rate: 83 BMI: 30.82 BP: 158/92 Ref Provider: MICHA ASHLEY PROCEDURES: Echocardiographic Report: ([id number]) Transthoracic complete echo, 2D, spectral and tissue [...] By: Charles Carbajal MD 12/29/2024 7:20:59 PM ENVELOPE MACHINE OPERATOR Procedure Note Charles Carbajal MD - 12/29/2024 Transthoracic Echocardiographic Report Patient Name: SARI CAMPBELL S : 1960 (64y 8m) Sex: M Study Date: 12/27/2024 03:08:23 PM Ht(Inch): 71 Wt(Lb): 221.01 BSA: 2.2 Rod Greaser: Lupe Diaz RDCS Order Provider: MICHA ASHLEY Heart Rate: 83 BMI: 30.82 BP: 158/92 Ref Provider: MICHA ASHLEY PROCEDURES: Echocardiographic Report: ([id number]) Transthoracic complete echo, 2D,spectral and tissue Doppler, [...] [ 16.00 - 34.00 ] MV Decel [id number] msec TAPSE 2.67 cm [ 1.71 - [...] By: Charles Carbajal MD 12/29/2024 7:20:59 PM ENVELOPE MACHINE OPERATOR us Micha Ashley MD CV ECHO PROCEDURES Final Result * eGFR (12/24/2024 12:01 PM ENVELOPE MACHINE OPERATOR) eGFR 72 >=60 mL/min/1. 73 m2 Comment: [...] reviewed 2020. Blood 12/24/2024 12:0 1 PM ENVELOPE MACHINE OPERATOR 12/24/2024 12:20 PM ENVELOPE MACHINE OPERATOR Debra Pastrana DO LAB BLOOD ORDERABLES Final Result [facility] [address] [facility] [place] [address] * (ABNORMAL) Comprehensive metabolic panel (12/24/2024 12:01 PM ENVELOPE MACHINE OPERATOR) Sodium 145 135 - 145 mmol/L Potassium, pl 3.2(L) 3.3 - 4.9 mmol/L [facility] Chloride 104 97 - 110 mmol/L [facility] CO2 32 22 - 32 mmol/L [facility] Anion gap 9 2 - 15 mmol/L [facility] BUN 16 6 - 25 mg/dL [facility] Creatinine 1.15 0.80 - 1.30 mg/dL [facility] Glucose 106 70 - 199 mg/dL [facility] Comment: Interpretive Data Fasting glucose >/= [...] 2022. Calcium 9.7 8.5 - 10.3 mg/dL [facility] Bilirubin, total 0.4 0.1 - 1.2 mg/dL [facility] Protein, pl 7.3 6.5 - 8.5 g/dL [facility] Albumin 4.1 3.5 - 5.0 g/dL [facility] Alk phos 56 40 - 130 Units/L [facility] ALT 30 7 - 55 Units/L [facility] AST 32 10 - 50 Units/L [facility] Blood 12/24/2024 12:0 1 PM ENVELOPE MACHINE OPERATOR 12/24/2024 12:20 PM ENVELOPE MACHINE OPERATOR us Debra Pastrana DO LAB BLOOD ORDERABLES Final Result Performing Organization Address City/State/[facility] Co de Phone Number CASSANDRA [address] [facility] [place] [address] * XR Chest PA Lateral 2 Views [...] signed by: Bobby Floyd MD Cammy Anthony SLICE PLUG CUTTER OPERATOR IMG XR PROCEDURES Final Result * POC Influenza A/B, COVID-19 antigen (12/04/2024 4:55 PM CDT) Influenza A Ag, POC Negative Negative [facility] Influenza B Ag, POC Negative Negative [facility]W COVID-19 Ag POC Presumptive Negative Presumptive Negative, Invalid [facility] CC [facility]W Nasal 12/04/2024 4:55 PM CDT Maggi DELGADO POINT OF CARE TEST ORDER LADI Final Result Performing Organization Address City/State/[facility] Co de Phone Number [facility] [address] [place] [address] * (ABNORMAL) POCT rapid strep A (12/04/2024 [...] by Lynn Velasquez M.D. T: Report ID: [id number] Reading Location: [id number] Procedure Note Maeve Velasquez MD - 11/21/2024 [...] by Lynn Velasquez M.D. T: Report ID: [id number] Reading Location: [place] [address] us Debra Pastrana DO IMG MRI PROCEDURES [...] by Lynn Velasquez M.D. T: Report ID: [id number] Reading Location: [id number] Procedure Note Maeve Velasquez MD - 11/21/2024 [...] by Lynn Velasquez M.D. T: Report ID: [id number] Reading Location: [place] [address] Debra Pastrana DO IMG MRI PROCEDURES Final [...] on 19. Hep C Ab Nonreactive Nonreactive [facility] Comment: Antibodies to HCV not detected. [...] O RDERABLES Final Result Performing Organization Address [facility] de Phone Number CASSANDRA [address] [employer] [place] [address] * PSA screen (02/29/2024 11:05 AM ENVELOPE MACHINE OPERATOR) PSA-Total 0.70 <=5.40 ng/mL Comment: Interpretive Data [...] revised 21. Blood 02/29/2024 11:0 5 AM ENVELOPE MACHINE OPERATOR 02/29/2024 12:14 PM ENVELOPE MACHINE OPERATOR Debra Pastrana DO LAB BLOOD ORDERABLES Final Result Performing Organization Address [facility] Co de Phone Number [address] [employer] [place] [address] * Colonoscopy (06/12/2020 3:37 PM CDT) Anatomical Region Laterality Modality Other Historical Provider MD ENDOSCOPY PROCEDURES Ivelisse l Result from Last 3 Months or Most Recently Relevant to Health Maintenance Insurance [facility] [id number] [facility] [id number] Care Teams Phlebotomy Technologist Relationship Specialty Start Date End Date Debra Pastrana DO [address] [facility] [place] [address] PCP - General Family Medicine 02/29/24 [place] [address] [place] [address] Urology 08/06/24 Mariola Rajan NP [address] [facility] [address] [place] [address] Nurse Practitioner Gastroenterology 09/30/24 Pop Wilburn MD [address] [facility] [address] [place] [address] Consulting Physician Sleep Medicine 09/30/24 Denny Fenrando MD [address] [place] [address] Consulting Physician Otolaryngology 09/30/24 Micha Ashley MD [address] [facility] [place] [address] Consulting Physician Cardiology 12/20/24
--- OUTSIDE RECORDS SUMMARY | 2025-01-04 21:42 | XMS_ITS | Clinical Summary ---
Author Organization [facility] Address [address] [place] [address] Care Team Providers Care City Mail Carrier Name Role Phone Xiomy Villegas NP Primary Care Provider [phone] Allergies Active Allergy Reactions Criticality Noted Date [...] Sex Assigned at Male 12/20/2022 8:51 AM PORTFOLIO ARCHITECT Legal Sex Male 3:31 PM CDT Gender Identity Male 12/20/2022 8:51 AM PORTFOLIO ARCHITECT Sexual Orientation Straight 12/20/2022 8: 51 AM PORTFOLIO ARCHITECT Last Filed Vital Signs Vital Sign Reading [...] 9:35 AM EST) Cholesterol 181 <200 mg/dL [facility] Triglycerides 88 <150 mg/dL [facility] HDL Cholesterol 41 >40 mg/dL [facility] Comment: Low (undesirable, high risk): <40.0 mg/dL High (desirable, low risk); >60 mg/dL LDL Cholesterol 137(H) <100 mg/dL [facility] Comment: LDL CHOLESTEROL INTERPRETATION GUIDELINES: Below 100 mg/dL is desirable. 100-129 mg/dL is considered borderline high. 130 mg/dL and above is considered high risk. The higher the value, the greater the risk of CHD. Blood specimen (specimen) (PLASMA) 03/12/2022 9:35 AM EST 03/12/2022 9:35 AM EST Narrative [facility] - 03/12/2022 11:08 AM EST Lab Results: [facility] IN RESULTED Date/Time: 03/12/2022 11:08 Ordered by: XIOMY VILLEGAS us Xiomy Villegas BUSINESS LINE MANAGER CHEMISTRY ORDERABLES Final Re sult [facility] [address] [place] [address], [facility] from Last 3 Months or Most Recently Relevant [place] [id number] [place] [id number] [place] [id number] [employer] Care Teams City Mail Carrier Relationship Specialty Start Date End Date Xiomy Villegas NP [address] [address] PCP - General Nurse Practitioner-Family 06/26/21
--- OUTSIDE RECORDS SUMMARY | 2025-01-04 21:42 | XMS_ITS | Encounter Summary ---
Author Organization [facility] Healthcare Address [address] [place] [address] Care Team Providers Care Grease Refining Supervisor Name Role Phone Debra Pastrana DO Primary Care Provider [phone] Anna Lopez MD Unavailable Mariola Rajan NP Unavailable [phone] Pop Wilburn MD Unavailable [phone] Denny Fernando MD Unavailable [phone] Micha Ashley MD Unavailable [phone] Encounter Details Date Type Department Care Team (Late st Contact Info) Description 12/30/2024 Results Follow-Up [facility] Family Medicine at [address] [address] Debra Pastrana DO [address] [place] [address] Comprehensive metabolic panel, eGFR Social History [...] on file Legal Sex Male 8:24 AM CARDIAC REHABILITATION PROGRAM DIRECTOR Gender Identity Not on file Sexual Orientation Not on file documented as of this encounter Functional Status * BP Location Answer Date of Assessment Author Right arm 12/30/2024 11:15 AM CARDIAC REHABILITATION PROGRAM DIRECTOR Abdiel Mitchell RN * BP Location Answer Date of Assessment Author Right arm 12/30/2024 11:15 AM CARDIAC REHABILITATION PROGRAM DIRECTOR Abdiel Mitchell RN documented as of this [...] August Barton MA - 12/31/2024 9:33 AM CARDIAC REHABILITATION PROGRAM DIRECTOR LM to call office IAC REHABILITATION PROGRAM DIRECTOR documented in this encounter Plan of Treatment [...] documented as of this encounter Care Teams Grease Refining Supervisor Relationship Specialty Start Date End Date Debra Pastrana DO [address] [address] PCP - General Family Medicine 02/29/24 [place] [address] [place] [address] Urology 08/06/24 Mariola Rajan NP [address] [place] [address] [place] [address] Nurse Practitioner Gastroenterology 09/30/24 Pop Wilburn MD [address] [place] [address] [place] [address] Consulting Physician Sleep Medicine 09/30/24 Denny Fernando MD [address] [place] [address] Consulting Physician Otolaryngology 09/30/24 Micha Ashley MD [address] [place] [address] [address] Consulting Physician Cardiology 12/20/24 documented as of this encounter
--- OUTSIDE RECORDS SUMMARY | 2025-01-04 21:42 | XMS_ITS | Encounter Summary ---
Author Organization [facility] Healthcare Address [address] [place] [address] Care Team Providers Care Corporate Physical Security Supervisor Name Role Phone Debra Pastrana DO Primary Care Provider [phone] Anna Lopez MD Unavailable Mariola Rajan NP Unavailable [phone] Pop Wilburn MD Unavailable [phone] Denny Fernando MD Unavailable [phone] Micha Ashley MD Unavailable [phone] Encounter Details Date Type Department Care Team (Late st Contact Info) Description 12/06/2024 Results Follow-Up [facility] at [place] [id number] [place] [address] [place] [address] [place] [address] [address] [place] [address] XR Chest PA Lateral 2 [...] on file 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 Gender Identity Not on file Sexual Orientation Not on file documented as of this encounter Functional Status documented as of this encounter Plan of Treatment Not on file documented as of this encounter Visit Diagnoses Not on filedocumented in this encounter Care Teams Corporate Physical Security Supervisor Relationship Specialty Start Date End Date Debra Pastrana DO [address] [facility] [address] [place] [address] [place] [address] PCP - General Family Medicine 02/29/24 [place] [address] [address] [place] [address] Urology 08/06/24 Mariola Rajan NP [address] [facility] [address] [place] [address] [place] [address] Nurse Practitioner Gastroenterology 09/30/24 Pop Wilburn MD [address] [facility] [address] [place] [address] [place] [address] Consulting Physician Sleep Medicine 09/30/24 Denny Fernando MD [address] [place] [address] Consulting Physician Otolaryngology 09/30/24 Micha Ashley MD [address] [facility] [address] [address] [address] Consulting Physician Cardiology 12/20/24 documented as of this encounter
[2025-01-04 21:49] LABS: Magnesium 2.0 mg/dL (1.6-2.3)
[2025-01-04] MEDS: SODIUM CHLORIDE 0.9% IV 1,000 ML 999 ML IV CONT (22:56)
[2025-01-04] MEDS: METOCLOPRAMIDE HCL INJ 10 MG/2 ML VIAL IV PUSH (22:58)
[2025-01-04 23:38] LABS: Add Urine Microscopic? YES; Appearance Urine Clear (Clear); Glucose Urine UA Negative (Negative); Leukocyte Esterase Ur 2+ LEU/UL (Negative); Nitrate Urine Negative (Negative); Non Pathogenic Casts 0-2; Specific Grav Ur 1.045 (1.001-1.035)
[2025-01-05] VITALS: PULSE 95
[2025-01-05 00:01] VITALS: BP 190/102; PULSE 97; O2SAT 93
--- NOTE | 2025-01-05 00:29 | PC.NURSE ---
patient alert and oriented x4. appears dowsy from previous medications given. able to ambulate without difficulty. no dizziness. offered cab voucher from broker in charge. patient verbalized understanding but refused.
== END 2025-01-05 00:32 | disposition home or self-care (01) ==
PROVIDERS: Emergency Provider Physician Assistant
DX: K52.9 Noninfective gastroenteritis and colitis, unspecified (principal); E87.6 Hypokalemia
CPT/HCPCS: 36415; 74177; 80053; 81001; 83690; 83735; 85025; 87086; 96361; 96374; 96375; 99284; J1200; J2270; J2405; J2765; J7030; Q9967